=== PATIENT | female | born 1930 | race Asian ===

== ENCOUNTER 2018-10-09 20:26 | Inpatient (IN) | payer MEDICARE, OTHER ==
[~2018-10-09] VITALS: Ht 152.4 cm; Wt 61.2 kg
[2018-10-09] MEDS ORDERED: SINGULAIR4 M3 ORAL (20:32)
[2018-10-09] MEDS ORDERED: CELEBREX50 M1 ORAL (20:32)
[2018-10-09] MEDS ORDERED: CEPHALEXIN500 MG ORAL (20:32)
[2018-10-09] MEDS ORDERED: METOPROLOL TART25 MG ORAL (20:32)
[2018-10-09] MEDS ORDERED: CALCIUM500 M3 PO (20:32)
[2018-10-09] MEDS ORDERED: BENICAR20 MG ORAL (20:32)
[2018-10-09] MEDS ORDERED: Nitroglycerin 2% oint pkt TOPIC ONE (21:00)
[2018-10-09] MEDS ORDERED: Enoxaparin 60mg Inj SUBQ ONE (21:00)
[2018-10-09 21:05] VITALS: BP 119/63
[2018-10-09 21:13] LABS: EOSINOPHILS % (AUTO) 0.4 % (0.0-3.0); HEMATOCRIT 36.6 % (37.0-47.0); HEMOGLOBIN 12.4 G/DL (12.0-16.0); LYMPHOCYTES % (AUTO) 14.5 % (20.0-45.0); MEAN CORPUSCULAR VOLUME 94 FL (80-99); MONOCYTES % (AUTO) 6.8 % (1.0-10.0); NEUTROPHILS % (AUTO) 77.3 % (45.0-75.0); PLATELET COUNT 115 K/UL (150-450); RED BLOOD COUNT 3.91 M/UL (4.20-5.40); RED CELL DISTRIBUTION WIDTH 11.6 % (11.6-14.8); WHITE BLOOD COUNT 12.2 K/UL (4.8-10.8)
[2018-10-09 21:23] LABS: ANION GAP 7 mmol/L (5-15); BLOOD UREA NITROGEN 31 mg/dL (7-18); CALCIUM 9.4 MG/DL (8.5-10.1); CARBON DIOXIDE 25 MMOL/L (21-32); CHLORIDE 108 MMOL/L (98-107); CREATININE 1.2 MG/DL (0.55-1.30); POTASSIUM 4.3 MMOL/L (3.5-5.1); SODIUM 140 MMOL/L (136-145)
[2018-10-09 21:39] LABS: ALANINE AMINOTRANSFERASE 20 U/L (12-78); ALBUMIN/GLOBULIN RATIO 0.9 (1.0-2.7); ALKALINE PHOSPHATASE 64 U/L (46-116); ASPARTATE AMINO TRANSFERASE 28 U/L (15-37); BILIRUBIN,TOTAL 0.5 MG/DL (0.2-1.0); CREATINE KINASE 57 U/L (26-308)
[2018-10-09 23:00] VITALS: BP 116/71
--- NOTE | 2018-10-09 23:57 | Emergency Room Report ---
History of Present Illness General Chief Complaint: Chest Pain Source: Patient, Family Member, EMS Present Illness HPI Is an 88-year-old Romansh speaking female who has a history hypertension. She presents with chief complaint of chest pain. Onset was this afternoon around 4 PM. She was walking when she developed substernal chest pain. Her daughter said that her so much that she has to stop. She was diaphoretic. No radiation. Pain was 10 out of 10. She rest and got better but never went away. When she tried and bleeding again tonight it got worse and daughter called 911. EMS gave her nitroglycerin and aspirin. Her pain went down to 5 out of 10. It is even better now on arrival. She denies any fever or chills. Denies any shortness of breath. Exertion makes it worse. Rest made it better. Allergies: Coded Allergies: No Known Allergies (Unverified , 10/09/18) Patient History Past Medical History: see triage record, old chart reviewed, HTN Past Surgical History: none Pertinent Family History: none Social History: Denies: smoking Last Menstrual Period: NA Now: No Immunizations: other Reviewed Nursing Documentation: PMH: Agreed; PSxH: Agreed Nursing Documentation-PMH Hx Cardiac Problems: Yes Hx Hypertension: Yes Hx Cerebrovascular Accident: Yes - possible Review of Systems Eye: Denies: eye pain, blurred vision ENT: Denies: ear pain, nose congestion, throat swelling Respiratory: Denies: cough, shortness of breath Cardiovascular: Reports: chest pain; Denies: palpitations Gastrointestinal: Denies: abdominal pain, diarrhea, nausea, vomiting Musculoskeletal: Denies: back pain, joint pain Skin: Denies: rash Neurological: Denies: headache, numbness Endocrine: Denies: increased thirst, increased urine Hematologic/Lymphatic: Denies: easy bruising All Other Systems: negative except mentioned in HPI Physical Exam Vital Signs Date Time Temp Pulse Resp B/P (MAP) Pulse Ox O2 Delivery O2 Flow Rate FiO2 10/09/18 20:26 97.9 74 18 124/78 97 Room Air vitals normal Sp02 EP Interpretation: reviewed, normal General Appearance: well appearing, no apparent distress, alert Head: normocephalic, atraumatic Eyes: bilateral eye PERRL, bilateral eye EOMI ENT: hearing grossly normal, normal pharynx Neck: full range of motion, supple, no meningismus Respiratory: chest non-tender, lungs clear, normal breath sounds Cardiovascular #1: regular rate, rhythm, no murmur Gastrointestinal: normal bowel sounds, non tender, no mass, no organomegaly, no bruit, non-distended Musculoskeletal: back normal, gait/station normal, normal range of motion Psychiatric: mood/affect normal Skin: warm/dry Procedures Critical Care Time Critical Care Time Critical care is mandated in this patient who presented with NSTEMI. Patient require my urgent intervention to attenuate the risks of metabolic which may lead to cardiovascular collapse and . Critical care time is 35 minutes excluding any reportable procedure. Critical care time included evaluation, multiple reevaluation, looking at old charts, interpreting laboratory and diagnostic data, discussing case with patient and family and consultants, and charting. Medical Decision Making Diagnostic Impression: Primary Impression: NSTEMI, initial episode of care Additional Impression: Hyperglycemia ER Course Patient presents with chest pain consistent with a NSTEMI. She is pain-free here. No STEMI. Aspirin and nitroglycerin given by EMS. I gave her nitro paste and Lovenox here. I discussed the case with Dr. Browning who will admit. Lab Results Impression Labs with elevated troponin. EKG Diagnostic Results Rate: normal Rhythm: NSR ST Segments: other - Nonspecific ST change ASA given to the pt in ED: No - Given by EMS Rhythm Strip Diag. Results Rhythm Strip Time: 23:56 EP Interpretation: yes Rate: 77 Rhythm: NSR, no PVC's, no ectopy Chest X-Ray Diagnostic Results Chest X-Ray Diagnostic Results : Chest X-Ray Ordered: Yes # of Views/Limited/Complete: 1 View Indication: Chest Pain EP Interpretation: Yes Interpretation: no consolidation, no effusion, no pneumothorax, no acute cardiopulmonary disease Impression: No acute disease Electronically Signed by: Cordell Au MD Last Vital Signs Date Time Temp Pulse Resp B/P (MAP) Pulse Ox O2 Delivery O2 Flow Rate FiO2 10/09/18 21:11 119/63 10/09/18 21:05 98.0 75 21 95 Room Air Status: improved Disposition: ADMITTED INPATIENT Condition: Serious Referrals: NON PHYSICIAN (PCP) Cordell Au MD Oct 09, 2018 23:57
[2018-10-10] VITALS (7 sets, daily range): BP systolic 101–133; BP diastolic 58–75
[2018-10-10] MEDS ORDERED: celeBREX 200mg Cap **SURGERY PATIENTS ONLY ORAL SCH (09:00)
--- NOTE | 2018-10-10 09:11 | Diagnostic Imaging Report ---
Indication: Chest pain Technique: One view of the chest Comparison: none Findings: No acute infiltrates, effusions, or congestion. Tortuous calcified aorta. Upper limits normal heart size. Upper mediastinum unremarkable. The lungs and pleural spaces are clear. The lungs are hyperinflated. Impression: No acute process.
[2018-10-10] MEDS: Heparin 5000 units/ml inj SUBQ SCH ×2 (09:55→21:00)
[2018-10-10] MEDS: Cephalexin 250mg Cap ORAL SCH ×2 (09:57→21:35)
[2018-10-10] MEDS: Metoprolol 25mg tab ORAL SCH ×2 (09:58→21:00)
--- NOTE | 2018-10-10 16:30 | History and Physical Report ---
DATE OF ADMISSION: 10/09/2018 HISTORY OF PRESENT ILLNESS: This is an 88-year-old female, Yakut-only speaking, who has history of hypertension. She came to the hospital yesterday at about 4 p.m., she stated she had some chest pain. She was diaphoretic. Pain resolved and again recurred. She came to the hospital for subsequent evaluation and care. PAST MEDICAL HISTORY: Notable for hypertension only. HOME MEDICATIONS: Include Tums, Celebrex, metoprolol, and Singulair. ALLERGIES: None reported. PAST SURGICAL HISTORY: None reported. REVIEW OF SYSTEMS: The patient denies any headache, hematemesis, melena, or hematochezia. PHYSICAL EXAMINATION: GENERAL: Reveals an elderly female. HEENT: Unremarkable. LUNGS: Clear breath sounds. ABDOMEN: Soft. NEUROLOGIC: Nonfocal. LABORATORY DATA: Lab testing shows elevated troponin of 0.7 followed by 1.3. Hemoglobin of 12 and white count of 12,200. IMPRESSION: 1. [id number] elevation [place]. 2. Hypertension. 3. DISCUSSION: Admit to the hospital. We will consult Cardiology. The patient may benefit from cardiac cath. 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 Nii Browning M.D. DR: CAROLINE JOB#: [id number] CC:
[2018-10-10] MEDS: Montelukast 10mg tablet ORAL SCH (16:55)
[2018-10-10] MEDS: Tums 500mg ORAL SCH (21:35)
--- NOTE | 2018-10-10 22:51 | Consultation ---
History of Present Illness General Date patient seen: Oct 10, 2018 Time patient seen: 16:52 Chief Complaint: Chest Pain Present Illness HPI 88 year old female who presents with chest pain that improved with nitro, cardiology consulted for elevated troponin that is rising. SHe has a history of hypertension CXR unremarkable. Allergies: Coded Allergies: No Known Allergies (Unverified , 10/09/18) Medication History Scheduled Celecoxib (Celebrex), 50 MG ORAL TWICE A DAY, (Reported) Cephalexin* (Keflex*), 500 MG ORAL EVERY 12 HOURS, (Reported) Metoprolol Tartrate* (Metoprolol Tartrate*), 25 MG ORAL EVERY 12 HOURS, ( Reported) Montelukast Sodium (Singulair), 4 MG ORAL DAILY, (Reported) Olmesartan Medoxomil (Benicar), 20 MG ORAL DAILY, (Reported) Miscellaneous Medications Calcium Carbonate (Calcium), 500 MG PO, (Reported) Patient History Healthcare decision maker N/A Resuscitation status Full Code Advanced Directive on File No Review of Systems Constitutional: Reports: no symptoms Eye: Reports: no symptoms ENT: Reports: no symptoms Respiratory: Reports: no symptoms Cardiovascular: Reports: chest pain Gastrointestinal: Reports: no symptoms Genitourinary: Reports: no symptoms Musculoskeletal: Reports: no symptoms Skin: Reports: no symptoms Psychiatric: Reports: no symptoms Neurological: Reports: no symptoms Endocrine: Reports: no symptoms Hematologic/Lymphatic: Reports: no symptoms Physical Exam General Appearance: no apparent distress, alert Lines, tubes and drains: peripheral HEENT: normocephalic, atraumatic Neck: non-tender, normal alignment, supple Respiratory/Chest: chest wall non-tender, lungs clear Cardiovascular/Chest: normal peripheral pulses, normal rate, regular rhythm Abdomen: normal bowel sounds, non tender Extremities: normal range of motion, non-tender Skin Exam: normal pigmentation, warm/dry 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, no motor/sensory deficits Last 24 Hour Vital Signs Date Time Temp Pulse Resp B/P (MAP) Pulse Ox O2 Delivery O2 Flow Rate FiO2 10/10/18 21:00 65 119/75 10/10/18 20:00 98.0 65 18 119/75 (90) 94 10/10/18 20:00 63 10/10/18 20:00 Room Air 10/10/18 16:35 65 10/10/18 16:00 Room Air 10/10/18 16:00 97.8 64 20 120/60 (80) 94 10/10/18 12:00 97.8 61 22 120/68 (85) 98 10/10/18 12:00 60 10/10/18 12:00 Room Air 10/10/18 09:58 61 104/58 10/10/18 08:00 61 10/10/18 08:00 Room Air 10/10/18 08:00 97.7 83 23 104/58 (73) 91 10/10/18 04:00 Room Air 10/10/18 04:00 97.9 65 20 101/62 (75) 94 10/10/18 03:43 63 10/10/18 02:00 Room Air 10/10/18 02:00 97.5 65 20 133/75 (94) 94 10/10/18 01:00 97.9 62 15 108/70 95 Room Air 10/10/18 00:50 97.9 63 15 108/20 95 Room Air 10/09/18 23:00 97.9 66 18 116/71 94 Room Air Intake and Output 10/09/18 10/10/18 18:59 06:59 Intake Total 100 ml Balance 100 ml Intake Oral 100 ml # Voids 3 # Bowel Movements 1 Laboratory Tests Test 10/10/18 03:25 Troponin I 1.304 ng/mL (0.000-0.056) Height (Feet): 5 Weight (Pounds): 120 Medications Current Medications Medications (Trade) Dose Ordered Sig/Alex Route PRN Reason Start Time Stop Time Status Last Admin Dose Admin Acetaminophen (Tylenol) 650 mg Q4H PRN ORAL Mild Pain/Temp > 100.5 10/10/18 02:15 11/09/18 02:14 10/10/18 03:33 Calcium Carbonate (Tums) 500 mg BIOTEC ORAL 10/10/18 21:00 11/09/18 20:59 10/10/18 21:35 Cephalexin (Keflex) 250 mg Q12HR ORAL 10/10/18 09:00 10/17/18 08:59 10/10/18 21:35 Heparin Sodium (Porcine) (Heparin 5000 units/ml) 5,000 units EVERY 12 HOURS SUBQ 10/10/18 09:00 11/09/18 08:59 10/10/18 09:55 Meloxicam (Mobic) 7.5 mg DAILY ORAL 10/10/18 12:00 11/09/18 11:59 10/10/18 13:59 Metoprolol Tartrate (Lopressor) 25 mg Q12HR ORAL 10/10/18 09:00 11/09/18 08:59 10/10/18 09:58 Montelukast Sodium (Singulair) 10 mg QPM ORAL 10/10/18 16:30 11/09/18 16:29 10/10/18 16:55 Assessment/Plan Status: stable Assessment/Plan Assessment Chest pain NSTEMI Elevated troponin Hypertension Plan Aspirin Heparin gtt Nitor prn chest pain Statin Metoprolol Serial EKG/Troponi Recommend cardiac cath but patient would need to be transferred Should not do stress test in setting of elevated troponin Buddy Reyes MD Oct 10, 2018 22:51
[2018-10-11] VITALS: BP 127/74
[2018-10-11] MEDS ORDERED: Heparin 25,000u/D5W 500ml 500 ML IV SCH ×3 (00:30→17:15)
[2018-10-11 01:10] LABS: BASOPHILS % (AUTO) 0.5 % (0.0-2.0); HEMATOCRIT 37.8 % (37.0-47.0); HEMOGLOBIN 12.8 G/DL (12.0-16.0); LYMPHOCYTES % (AUTO) 16.2 % (20.0-45.0); MEAN CORPUSCULAR VOLUME 93 FL (80-99); MONOCYTES % (AUTO) 7.5 % (1.0-10.0); NEUTROPHILS % (AUTO) 74.9 % (45.0-75.0); PLATELET COUNT 120 K/UL (150-450); RED BLOOD COUNT 4.05 M/UL (4.20-5.40); RED CELL DISTRIBUTION WIDTH 12.1 % (11.6-14.8); WHITE BLOOD COUNT 10.3 K/UL (4.8-10.8)
[2018-10-11 04:00] VITALS: BP 144/86
[2018-10-11 08:00] VITALS: BP 118/71
[2018-10-11] MEDS ORDERED: Heparin 5000 units/ml inj IV SCH (08:30)
[2018-10-11] MEDS: Metoprolol 25mg tab ORAL SCH ×2 (08:42→20:46)
[2018-10-11] MEDS: Aspirin Baby 81mg ORAL SCH (08:42)
--- NOTE | 2018-10-11 09:45 | Pulmonology Progress Note ---
Assessment/Plan Assessment/Plan Chest pain NSTEMI Elevated troponin Hypertension Plan Aspirin Heparin gtt Nitrates prn chest pain Statin Metoprolol Serial EKG/Troponi Needs cardiac cath Subjective Interval Events: None new Constitutional: Reports: no symptoms HEENT: Repors: no symptoms Respiratory: Reports: no symptoms Cardiovascular: Reports: no symptoms Gastrointestinal/Abdominal: Reports: no symptoms Genitourinary: Reports: no symptoms Allergies: Coded Allergies: No Known Allergies (Unverified , 10/09/18) Objective Last 24 Hour Vital Signs Date Time Temp Pulse Resp B/P (MAP) Pulse Ox O2 Delivery O2 Flow Rate FiO2 10/11/18 08:42 85 118/71 10/11/18 08:00 71 10/11/18 08:00 Room Air 10/11/18 08:00 97.4 85 16 118/71 (87) 95 10/11/18 04:00 98.5 65 14 144/86 (105) 95 10/11/18 04:00 Room Air 10/11/18 04:00 57 10/11/18 00:00 Room Air 10/11/18 00:00 59 10/11/18 00:00 97.7 63 18 127/74 (91) 97 10/10/18 21:00 65 119/75 10/10/18 20:00 98.0 65 18 119/75 (90) 94 10/10/18 20:00 63 10/10/18 20:00 Room Air 10/10/18 16:35 65 10/10/18 16:00 Room Air 10/10/18 16:00 97.8 64 20 120/60 (80) 94 10/10/18 12:00 97.8 61 22 120/68 (85) 98 10/10/18 12:00 60 10/10/18 12:00 Room Air 10/10/18 09:58 61 104/58 Intake and Output 10/10/18 10/11/18 19:00 07:00 Intake Total 750 ml 400 ml Balance 750 ml 400 ml Intake Oral 750 ml 400 ml # Voids 2 4 General Appearance: no acute distress HEENT: normocephalic Respiratory/Chest: chest wall non-tender, lungs clear Cardiovascular: normal peripheral pulses, normal rate Abdomen: normal bowel sounds Laboratory Tests 10/11/18 00:50: White Blood Count 10.3, Red Blood Count 4.05L, Hemoglobin 12.8, Hematocrit 37.8 , Mean Corpuscular Volume 93, Mean Corpuscular Hemoglobin 31.7H, Mean Corpuscular Hemoglobin Concent 33.9, Red Cell Distribution Width 12.1, Platelet Count 120L, Mean Platelet Volume 6.6, Neutrophils (%) (Auto) 74.9, Lymphocytes ( %) (Auto) 16.2L, Monocytes (%) (Auto) 7.5, Eosinophils (%) (Auto) 1.0, Basophils (%) (Auto) 0.5, Activated Partial Thromboplast Time 28 10/11/18 07:30: Activated Partial Thromboplast Time 62H Current Medications Medications (Trade) Dose Ordered Sig/Alex Route PRN Reason Start Time Stop Time Status Last Admin Dose Admin Acetaminophen (Tylenol) 650 mg Q4H PRN ORAL Mild Pain/Temp > 100.5 10/10/18 02:15 11/09/18 02:14 10/10/18 03:33 Aspirin (ASA) 81 mg DAILY ORAL 10/11/18 09:00 11/10/18 08:59 10/11/18 08:42 Atorvastatin Calcium (Lipitor) 20 mg BEDTIME ORAL 10/11/18 21:00 11/10/18 20:59 Calcium Carbonate (Tums) 500 mg BIOTEC ORAL 10/10/18 21:00 11/09/18 20:59 10/10/18 21:35 Heparin Sodium/ Dextrose 500 ml @ 16.8 mls/hr ADJUST PER PROTOCOL IV 10/11/18 08:30 11/10/18 08:29 10/11/18 08:45 Meloxicam (Mobic) 7.5 mg DAILY ORAL 10/10/18 12:00 11/09/18 11:59 10/11/18 08:42 Metoprolol Tartrate (Lopressor) 25 mg Q12HR ORAL 10/10/18 09:00 11/09/18 08:59 10/11/18 08:42 Montelukast Sodium (Singulair) 10 mg QPM ORAL 10/10/18 16:30 11/09/18 16:29 10/10/18 16:55 Nii Browning MD Oct 11, 2018 09:45
--- NOTE | 2018-10-11 10:06 | Cardiology Progress Note ---
Assessment/Plan Status: stable Assessment/Plan Assessment/Plan Status: stable Assessment/Plan Assessment Chest pain NSTEMI Elevated troponin Hypertension Plan Aspirin Heparin gtt Nitor prn chest pain Statin Metoprolol Serial EKG/Troponin Initiated transfer to [facility] for cardiac cath: indication chest pain and elevated/rising troponin Subjective Cardiovascular: Reports: no symptoms Respiratory: Reports: no symptoms Gastrointestinal/Abdominal: Reports: no symptoms Genitourinary: Reports: no symptoms Subjective NO acute events, no chest pain currently, heparin running, vitals stable. Transfer to [facility] initiated. Objective Last 24 Hour Vital Signs Date Time Temp Pulse Resp B/P (MAP) Pulse Ox O2 Delivery O2 Flow Rate FiO2 10/11/18 08:42 85 118/71 10/11/18 08:00 71 10/11/18 08:00 Room Air 10/11/18 08:00 97.4 85 16 118/71 (87) 95 10/11/18 04:00 98.5 65 14 144/86 (105) 95 10/11/18 04:00 Room Air 10/11/18 04:00 57 10/11/18 00:00 Room Air 10/11/18 00:00 59 10/11/18 00:00 97.7 63 18 127/74 (91) 97 10/10/18 21:00 65 119/75 10/10/18 20:00 98.0 65 18 119/75 (90) 94 10/10/18 20:00 63 10/10/18 20:00 Room Air 10/10/18 16:35 65 10/10/18 16:00 Room Air 10/10/18 16:00 97.8 64 20 120/60 (80) 94 10/10/18 12:00 97.8 61 22 120/68 (85) 98 10/10/18 12:00 60 10/10/18 12:00 Room Air General Appearance: no apparent distress, alert EENT: PERRL/EOMI, normal ENT inspection, TMs normal, pharynx normal Neck: non-tender, normal alignment, supple, normal inspection, no JVD Rhythm: NSR Cardiovascular: normal peripheral pulses, normal rate, regular rhythm Respiratory/Chest: chest wall non-tender, lungs clear, normal breath sounds, no respiratory distress, no accessory muscle use Abdomen: normal bowel sounds, non tender, soft, no organomegaly, no mass Extremities: normal range of motion, non-tender, normal inspection, no calf tenderness, no swelling 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, no motor/sensory deficits, alert, oriented x 3, responsive Intake and Output 10/10/18 10/11/18 19:00 07:00 Intake Total 750 ml 400 ml Balance 750 ml 400 ml Intake Oral 750 ml 400 ml # Voids 2 4 Laboratory Tests Test 10/11/18 00:50 10/11/18 07:30 White Blood Count 10.3 K/UL (4.8-10.8) Red Blood Count 4.05 M/UL (4.20-5.40) L Hemoglobin 12.8 G/DL (12.0-16.0) Hematocrit 37.8 % (37.0-47.0) Mean Corpuscular Volume 93 FL (80-99) Mean Corpuscular Hemoglobin 31.7 PG (27.0-31.0) H Mean Corpuscular Hemoglobin Concent 33.9 G/DL (32.0-36.0) Red Cell Distribution Width 12.1 % (11.6-14.8) Platelet Count 120 K/UL (150-450) L Mean Platelet Volume 6.6 FL (6.5-10.1) Neutrophils (%) (Auto) 74.9 % (45.0-75.0) Lymphocytes (%) (Auto) 16.2 % (20.0-45.0) L Monocytes (%) (Auto) 7.5 % (1.0-10.0) Eosinophils (%) (Auto) 1.0 % (0.0-3.0) Basophils (%) (Auto) 0.5 % (0.0-2.0) Activated Partial Thromboplast Time 28 SEC (23-33) 62 SEC (23-33) H Buddy Reyes MD Oct 11, 2018 10:06
[2018-10-11 12:00] VITALS: BP 131/76
[2018-10-11 16:00] VITALS: BP 148/100
[2018-10-11] MEDS: Montelukast 10mg tablet ORAL SCH (16:17)
--- NOTE | 2018-10-11 17:14 | Cardiology Report ---
APPROVED REPORT EXAM: Two-dimensional and M-mode echocardiogram with Doppler and color Doppler. INDICATION Left ventricular function M-Mode DIMENSIONS IVSd1.3 (0.7-1.1cm)Left Atrium (MM)3.3 (1.6-4.0cm) LVDd2.8 (3.5-5.6cm)Aortic Root3.0 (2.0-3.7cm) PWd1.1 (0.7-1.1cm)Aortic Cusp Exc.1.4 (1.5-2.0cm) LVDs2.1 (2.5-4.0cm) PWs1.2 cm Normal left ventricular chamber size, systolic function and wall motion. Left ventricular ejection fraction estimated to be 65-70 %. Mild left ventricular hypertrophy by 2D No evidence of pericardial effusion. Left atrial size is within normal limits. Mild right atrial enlargement. Mild right ventricular enlargement. Focal aortic valve sclerosis with adequate cusp excursion. Thickened mitral valve leaflets with normal excursion. Mitral annulus and aortic root calcification. Pulmonic valve not well visualized. Normal tricuspid valve structure. IVC measured at 1.7 cm with slight physiologic collapse. A color flow and spectral Doppler study was performed and revealed: No aortic regurgitation. Trace mitral regurgitation. Mitral diastolic velocities suggest reduced left ventricular relaxation c/w mild LV diastolic dysfunction (Grade I). Moderate tricuspid regurgitation. Tricuspid systolic velocities suggests peak right ventricular systolic pressure of 75 mmHg, consistent with severe pulmonary hypertension. Pulmonic regurgitation present.
--- NOTE | 2018-10-11 18:41 | Cardiology Report ---
APPROVED REPORT EKG Measurement Heart [id number] Normal sinus rhythm T wave abnormality, consider anterior ischemia Abnormal ECG
[2018-10-11 20:06] VITALS: BP 124/86
[2018-10-11] MEDS: Tums 500mg ORAL SCH (20:46)
[2018-10-11] MEDS: Atorvastatin 20mg tab ORAL SCH (20:46)
[2018-10-12] VITALS: BP 149/93
[2018-10-12] MEDS ORDERED: Heparin 25,000u/D5W 500ml 500 ML IV SCH ×2 (00:15→08:00)
[2018-10-12 04:00] VITALS: BP 150/89
[2018-10-12 08:00] VITALS: BP 121/70
[2018-10-12] MEDS ORDERED: Heparin 5000 units/ml inj IV SCH (08:00)
--- NOTE | 2018-10-12 08:35 | Cardiology Progress Note ---
Assessment/Plan Status: stable Assessment/Plan Assessment/Plan Status: stable Assessment/Plan Assessment Chest pain NSTEMI Elevated troponin Hypertension Plan Aspirin Heparin gtt Nitor prn chest pain Statin Metoprolol Serial EKG/Troponin Initiated transfer to [facility] for cardiac cath: indication chest pain and elevated/rising troponin Subjective Cardiovascular: Reports: no symptoms Respiratory: Reports: no symptoms Gastrointestinal/Abdominal: Reports: no symptoms Genitourinary: Reports: no symptoms Subjective NO acute events, no chest pain currently, heparin running, vitals stable. Transfer to [facility] initiated, awaiting bed assignment. Objective Last 24 Hour Vital Signs Date Time Temp Pulse Resp B/P (MAP) Pulse Ox O2 Delivery O2 Flow Rate FiO2 10/12/18 04:00 Room Air 10/12/18 04:00 97.7 55 20 150/89 (109) 95 10/12/18 04:00 60 10/12/18 00:00 97.8 55 20 149/93 (111) 96 10/12/18 00:00 Room Air 10/12/18 00:00 53 10/11/18 20:46 73 124/86 10/11/18 20:06 96.8 73 20 124/86 (99) 95 10/11/18 20:00 Room Air 10/11/18 20:00 71 10/11/18 16:00 97.0 67 20 148/100 (116) 95 10/11/18 16:00 Room Air 10/11/18 16:00 69 10/11/18 12:00 97.2 68 20 131/76 (94) 94 10/11/18 12:00 Room Air 10/11/18 12:00 58 10/11/18 08:42 85 118/71 General Appearance: no apparent distress, alert EENT: PERRL/EOMI, normal ENT inspection Neck: non-tender, normal alignment, supple, normal inspection, no JVD Rhythm: NSR Cardiovascular: normal peripheral pulses, normal rate, regular rhythm Respiratory/Chest: chest wall non-tender, lungs clear, normal breath sounds Abdomen: normal bowel sounds, non tender Extremities: normal range of motion, non-tender 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
[2018-10-12] MEDS: Aspirin Baby 81mg ORAL SCH (09:06)
[2018-10-12] MEDS: Metoprolol 25mg tab ORAL SCH ×2 (09:07→21:12)
--- NOTE | 2018-10-12 09:52 | Pulmonology Progress Note ---
Assessment/Plan Assessment/Plan Chest pain NSTEMI Elevated troponin Hypertension Plan Aspirin Heparin gtt Nitrates prn chest pain Statin Metoprolol Serial EKG/Troponi Needs cardiac cath Await transfer to cath facility Subjective Interval Events: Seen by cardiology; denies CP Constitutional: Reports: no symptoms HEENT: Repors: no symptoms Respiratory: Reports: no symptoms Cardiovascular: Reports: no symptoms Gastrointestinal/Abdominal: Reports: no symptoms Allergies: Coded Allergies: No Known Allergies (Unverified , 10/09/18) Objective Last 24 Hour Vital Signs Date Time Temp Pulse Resp B/P (MAP) Pulse Ox O2 Delivery O2 Flow Rate FiO2 10/12/18 09:07 65 121/70 10/12/18 04:00 Room Air 10/12/18 04:00 97.7 55 20 150/89 (109) 95 10/12/18 04:00 60 10/12/18 00:00 97.8 55 20 149/93 (111) 96 10/12/18 00:00 Room Air 10/12/18 00:00 53 10/11/18 20:46 73 124/86 10/11/18 20:06 96.8 73 20 124/86 (99) 95 10/11/18 20:00 Room Air 10/11/18 20:00 71 10/11/18 16:00 97.0 67 20 148/100 (116) 95 10/11/18 16:00 Room Air 10/11/18 16:00 69 10/11/18 12:00 97.2 68 20 131/76 (94) 94 10/11/18 12:00 Room Air 10/11/18 12:00 58 Intake and Output 10/11/18 10/12/18 19:00 07:00 Intake Total 479.6 ml 303.776 ml Balance 479.6 ml 303.776 ml Intake Oral 350 ml 200 ml IV Total 129.6 ml 103.776 ml # Voids 5 4 # Bowel Movements 1 General Appearance: no acute distress HEENT: normocephalic Respiratory/Chest: chest wall non-tender, lungs clear Cardiovascular: normal peripheral pulses, normal rate Abdomen: normal bowel sounds Laboratory Tests 10/11/18 15:00: Activated Partial Thromboplast Time > 150*H 10/11/18 22:20: Activated Partial Thromboplast Time > 150*H 10/12/18 06:14: Activated Partial Thromboplast Time 52H, Troponin I 0.262H Current Medications Medications (Trade) Dose Ordered Sig/Alex Route PRN Reason Start Time Stop Time Status Last Admin Dose Admin Acetaminophen (Tylenol) 650 mg Q4H PRN ORAL Mild Pain/Temp > 100.5 10/10/18 02:15 11/09/18 02:14 10/10/18 03:33 Aspirin (ASA) 81 mg DAILY ORAL 10/11/18 09:00 11/10/18 08:59 10/12/18 09:06 Atorvastatin Calcium (Lipitor) 20 mg BEDTIME ORAL 10/11/18 21:00 11/10/18 20:59 10/11/18 20:46 Calcium Carbonate (Tums) 500 mg BIOTEC ORAL 10/10/18 21:00 11/09/18 20:59 10/11/18 20:46 Heparin Sodium/ Dextrose 500 ml @ 9.725 mls/ hr ADJUST PER PROTOCOL IV 10/12/18 08:00 11/11/18 07:59 10/12/18 09:03 Meloxicam (Mobic) 7.5 mg DAILY ORAL 10/10/18 12:00 11/09/18 11:59 10/12/18 09:06 Metoprolol Tartrate (Lopressor) 25 mg Q12HR ORAL 10/10/18 09:00 11/09/18 08:59 10/12/18 09:07 Montelukast Sodium (Singulair) 10 mg QPM ORAL 10/10/18 16:30 11/09/18 16:29 10/11/18 16:17 Nii Browning MD Oct 12, 2018 09:52
[2018-10-12 12:00] VITALS: BP 153/90
[2018-10-12 16:20] VITALS: BP 132/78
[2018-10-12] MEDS: Montelukast 10mg tablet ORAL SCH (16:40)
[2018-10-12 20:00] VITALS: BP 110/65
[2018-10-12] MEDS: Atorvastatin 20mg tab ORAL SCH (21:12)
[2018-10-12] MEDS: Tums 500mg ORAL SCH (21:12)
[2018-10-13] VITALS: BP 111/81
[2018-10-13 04:00] VITALS: BP 152/83
[2018-10-13] MEDS ORDERED: Heparin 5000 units/ml inj IV ONE (05:00)
[2018-10-13] MEDS: Heparin 25,000u/D5W 500ml 500 ML IV SCH ×2 (05:19→12:24)
[2018-10-13 08:00] VITALS: BP 150/80
--- NOTE | 2018-10-13 08:11 | Pulmonology Progress Note ---
Assessment/Plan Assessment/Plan Chest pain NSTEMI Elevated troponin Hypertension Plan Aspirin Heparin gtt Nitrates prn chest pain Statin Metoprolol Serial EKG/Troponi Needs cardiac cath Await transfer to cath facility Subjective Interval Events: No new complaints; pain free Constitutional: Reports: no symptoms HEENT: Repors: no symptoms Respiratory: Reports: no symptoms Cardiovascular: Reports: no symptoms Gastrointestinal/Abdominal: Reports: no symptoms Genitourinary: Reports: no symptoms Neurologic: Reports: no symptoms Allergies: Coded Allergies: No Known Allergies (Unverified , 10/09/18) Objective Last 24 Hour Vital Signs Date Time Temp Pulse Resp B/P (MAP) Pulse Ox O2 Delivery O2 Flow Rate FiO2 10/13/18 04:00 97.4 55 18 152/83 (106) 95 10/13/18 03:41 48 10/13/18 00:00 97.8 77 18 111/81 (91) 95 10/12/18 23:38 48 10/12/18 21:12 62 110/65 10/12/18 20:00 97.4 62 18 110/65 (80) 95 10/12/18 19:32 70 10/12/18 16:20 97.5 62 18 132/78 (96) 95 10/12/18 16:00 Room Air 10/12/18 15:30 63 10/12/18 12:00 57 10/12/18 12:00 Room Air 10/12/18 12:00 97.5 60 18 153/90 (111) 96 10/12/18 09:07 65 121/70 Intake and Output 10/12/18 10/13/18 18:59 06:59 Intake Total 344.821 ml 97.250 ml Balance 344.821 ml 97.250 ml Intake Oral 250 ml IV Total 94.821 ml 97.250 ml # Voids 3 General Appearance: no acute distress HEENT: normocephalic Respiratory/Chest: chest wall non-tender, lungs clear Cardiovascular: normal peripheral pulses, normal rate Abdomen: normal bowel sounds, soft, non tender Extremities: no cyanosis Laboratory Tests 10/12/18 15:05: Activated Partial Thromboplast Time 80H 10/13/18 04:15: Activated Partial Thromboplast Time 53H Current Medications Medications (Trade) Dose Ordered Sig/Alex Route PRN Reason Start Time Stop Time Status Last Admin Dose Admin Acetaminophen (Tylenol) 650 mg Q4H PRN ORAL Mild Pain/Temp > 100.5 10/10/18 02:15 11/09/18 02:14 10/10/18 03:33 Aspirin (ASA) 81 mg DAILY ORAL 10/11/18 09:00 11/10/18 08:59 10/12/18 09:06 Atorvastatin Calcium (Lipitor) 20 mg BEDTIME ORAL 10/11/18 21:00 11/10/18 20:59 10/12/18 21:12 Calcium Carbonate (Tums) 500 mg BIOTEC ORAL 10/10/18 21:00 11/09/18 20:59 10/12/18 21:12 Heparin Sodium/ Dextrose 500 ml @ 12.247 mls/ hr ADJUST PER PROTOCOL IV 10/13/18 05:00 11/11/18 07:59 10/13/18 05:19 Meloxicam (Mobic) 7.5 mg DAILY ORAL 10/10/18 12:00 11/09/18 11:59 10/12/18 09:06 Metoprolol Tartrate (Lopressor) 25 mg Q12HR ORAL 10/10/18 09:00 11/09/18 08:59 10/12/18 21:12 Montelukast Sodium (Singulair) 10 mg QPM ORAL 10/10/18 16:30 11/09/18 16:29 10/12/18 16:40 Nii Browning MD Oct 13, 2018 08:11
[2018-10-13] MEDS: Aspirin Baby 81mg ORAL SCH (08:36)
[2018-10-13] MEDS: Metoprolol 25mg tab ORAL SCH (08:37)
[2018-10-13] MEDS ORDERED: Lexiscan 0.4mg/5ml syringe IV PRN (09:30)
--- NOTE | 2018-10-13 09:31 | Cardiology Progress Note ---
Assessment/Plan Status: stable Assessment/Plan Assessment/Plan Status: stable Assessment/Plan Assessment Chest pain NSTEMI Elevated troponin Hypertension Plan Aspirin Heparin gtt Nitor prn chest pain Statin Metoprolol Serial EKG/Troponin Stress test ordered given no CP and fallen troponin - if negative can d/c home and cancel transfer Subjective Cardiovascular: Reports: no symptoms Respiratory: Reports: no symptoms Gastrointestinal/Abdominal: Reports: no symptoms Genitourinary: Reports: no symptoms Subjective NO acute events, no chest pain currently, heparin running, vitals stable. Stress test ordered given no CP and troponin has significantly come down Objective Last 24 Hour Vital Signs Date Time Temp Pulse Resp B/P (MAP) Pulse Ox O2 Delivery O2 Flow Rate FiO2 10/13/18 09:00 Room Air 10/13/18 08:37 63 150/80 10/13/18 08:00 97.3 55 18 150/80 (103) 98 10/13/18 04:00 97.4 55 18 152/83 (106) 95 10/13/18 03:41 48 10/13/18 00:00 97.8 77 18 111/81 (91) 95 10/12/18 23:38 48 10/12/18 21:12 62 110/65 10/12/18 20:00 97.4 62 18 110/65 (80) 95 10/12/18 19:32 70 10/12/18 16:20 97.5 62 18 132/78 (96) 95 10/12/18 16:00 Room Air 10/12/18 15:30 63 10/12/18 12:00 57 10/12/18 12:00 Room Air 10/12/18 12:00 97.5 60 18 153/90 (111) 96 General Appearance: no apparent distress, alert EENT: PERRL/EOMI, normal ENT inspection Neck: non-tender, normal alignment, supple Rhythm: NSR Cardiovascular: normal peripheral pulses, normal rate, regular rhythm Respiratory/Chest: chest wall non-tender, lungs clear, normal breath sounds Abdomen: normal bowel sounds, non tender Extremities: normal range of motion, non-tender Neurologic: weed thinner II-XII grossly normal, no motor/sensory deficits Intake and Output 10/12/18 10/13/18 19:00 07:00 Intake Total 364.271 ml 77.800 ml Balance 364.271 ml 77.800 ml Intake Oral 250 ml IV Total 114.271 ml 77.800 ml # Voids 3 Laboratory Tests Test 10/12/18 15:05 10/13/18 04:15 Activated Partial Thromboplast Time 80 SEC (23-33) H 53 SEC (23-33) H Buddy Reyes MD Oct 13, 2018 09:31
[2018-10-13 12:00] VITALS: BP 110/66
[2018-10-13 16:00] VITALS: BP 133/69
[2018-10-13] MEDS: Montelukast 10mg tablet ORAL SCH (16:31)
[2018-10-13 19:55] VITALS: BP 185/95
--- NOTE | 2018-10-15 13:22 | Discharge Summary ---
Discharge Summary Discharge Summary _ DATE OF ADMISSION: 10/09/2018 DATE OF DISCHARGE: 2018 DISCHARGED BY: Dr. Browning REASON FOR ADMISSION: 88 years old female with past medical history of hypertension, presented to the hospital with complaint of chest pain. Patient was diaphoretic. Pain resolved at home and returned again. Patient subsequently presented to emergency department for further evaluation and management. Upon evaluation vital signs were stable. Laboratory workup revealed mild leukocytosis WBC 12.2, stable hemoglobin hematocrit. Troponin int elevated- 0.706. EKG revealed sinus rhythm with nonspecific ST changes. No acute ischemic changes. Pro BNP 364. BUN 31 creatinine 1.2. Glucose 236. Albumin 3.0 Chest x-ray revealed no acute cardiopulmonary pathology. Patient was admitted for NSTEMI for further management. CONSULTANTS: pot builder dr. Reyes HOSPITAL COURSE: Patient admitted to monitored floor. Antiplatelet therapy with Aspirin was initiated . Patient started on anticoagulation with heparin drip. Net Software Architect closely followed. c Nitroglycerin was on board as needed for chest pain. Patient started on beta-hermes and statin. Patient was followed-up with serial EKG and troponin. Echocardiogram revealed preserved ejection fraction 55-70% with mild left ventricular hypertrophy. No evidence of wall motion abnormality. No evidence of pericardial effusion. Right ventricular systolic pressure of 75 consistent with severe pulmonary hypertension. Patient was placed on waiting list for transfer to higher level of care for cardiac catheterization . No stress test was recommended in setting of elevated troponin. Troponin was initially trended up to 1.304, and then started to trend down ; last troponin prior to discharge - 0.141. Blood pressure was managed with beta-hermes and hydralazine on as needed basis. Pain management was addressed , and pain was controlled. Supportive care provided. Bed was secured at [facility] . Patient was stable for transfer via [facility] ambulance for cardiac catheterization. FINAL DIAGNOSES: Non-STEMI Chest pain , secondary to non-STEMI Elevated troponin Hypertension Severe pulmonary hypertension DISCHARGE MEDICATIONS: List of medication was sent with patient. DISCHARGE INSTRUCTIONS: Patient was transferred to [facility] for cardiac catheterization. Follow-up with medical doctor at the facility. I have been assigned to dictate discharge summary for this account. I was not involved in the patient's management. Maria Victoria Sue NP Oct 15, 2018 13:22
== END 2018-10-13 20:06 | disposition short-term general hospital (02) | DRG 282 ==
LOC: EDBD 20:26 → EMR 20:51 → EDBEDREQ 22:15 → 2W 23:12 → EDBEDREQ 10-10 00:22 → 2E 10-12 16:00
DX: I21.4 Non-ST elevation (NSTEMI) myocardial infarction (principal); I10 Essential (primary) hypertension; I27.20 Pulmonary hypertension, unspecified
CPT/HCPCS: 36415; 71045; 80053; 82550; 82553; 83880; 84484; 85025; 85730; 93005; 93306; 96372; 99291

== ENCOUNTER 2019-05-14 14:13 | Inpatient (IN) | payer MEDICARE, OTHER ==
[~2019-05-14] VITALS: Ht 152.4 cm; Wt 58.1 kg
[~2019-05-14 14:13] MED LIST: BENICAR20 MG ORAL; CALCIUM500 M3 PO; CELEBREX50 M1 ORAL; CEPHALEXIN500 MG ORAL; METOPROLOL TART25 MG ORAL; SINGULAIR4 M3 ORAL
--- NOTE | 2019-05-14 14:13 | NUR ---
ED Nurse Note: Pt brought in by EMS from [facility] due to SOB and was desating to 74% in room air and non rebreather applied by EMS. No hx of asthma or COPD. Also c/o chronic low back pain and has hx of back surgery. AAO x4, and follows commands with SOB at rest. Lungs are clear. Pt now sats 95-100% in room air.
[2019-05-14 14:18] VITALS: BP 133/56
[2019-05-14] MEDS ORDERED: lovaza PO (14:19)
[2019-05-14] MEDS ORDERED: LIPITOR10 MG ORAL (14:19)
[2019-05-14] MEDS ORDERED: BENICAR20 MG ORAL (14:19)
--- NOTE | 2019-05-14 14:24 | Emergency Room Report ---
History of Present Illness General Chief Complaint: Dyspnea/Respdistress Source: Patient, Medical Record Present Illness HPI 88-year-old female history of back surgery presents with acute shortness of breath prior to arrival patient had tachypnea, unknown aggravating relieving factors, episode lasted 30 minutes, patient desatted to 76 per EMS without nonrebreather, patient has no smoking history she denied any chest pain no abdominal pain no nausea vomiting, patient states shortness of breath has resolved, severity was severe. Allergies: Coded Allergies: No Known Allergies (Unverified , 10/09/18) Patient History Past Medical History: see triage record Last Menstrual Period: na Reviewed Nursing Documentation: PMH: Agreed; PSxH: Agreed Nursing Documentation-PMH Past Medical History: No History, Except For Hx Cardiac Problems: Yes - high cholesterol Hx Hypertension: Yes Hx Gastrointestinal Problems: Yes - gastritis Hx Cerebrovascular Accident: Yes Review of Systems All Other Systems: negative except mentioned in HPI Physical Exam Vital Signs Date Time Temp Pulse Resp B/P (MAP) Pulse Ox O2 Delivery O2 Flow Rate FiO2 05/14/19 14:08 99.3 68 22 142/82 (102) 100 Non-Rebreather Sp02 EP Interpretation: reviewed, abnormal - reduced General Appearance: well appearing, no apparent distress, alert Head: normocephalic, atraumatic Eyes: bilateral eye PERRL, bilateral eye EOMI ENT: uvula midline, moist mucus membranes Neck: supple, thyroid normal, supple/symm/no masses Respiratory: lungs clear, no respiratory distress, no retraction, no accessory muscle use Cardiovascular #1: normal peripheral pulses, regular rate, rhythm, no edema, no gallop, no murmur Gastrointestinal: non tender, soft, no guarding, no rebound Musculoskeletal: normal inspection Neurologic: alert, oriented x3 Psychiatric: mood/affect normal Skin: no rash, warm/dry Procedures Critical Care Time Critical Care Time Given the critical condition in which the patient arrived, the patient was immediately assessed by myself and the nurse, and cardiac monitoring initiated due to the potential for rapid decompensation of the patient's clinical condition. During the course of the patient's stay, I spent a considerable amount of time at the bedside performing serial re-evaluations of the patient's hemodynamic and clinical status because of the recognized potential threat to life or limb in this condition. I then had a chance to review not only all of the available current laboratory and radiographic studies obtained today, but I also reviewed old records available to me at the time. Additionally, any ancillary information available including software project manager records were reviewed. Sequential vital signs were obtained. Critical Care time of 36 minutes was performed exclusive of billable procedures. Medical Decision Making Diagnostic Impression: Primary Impression: Dyspnea Qualified Codes: R06.03 - Acute respiratory distress Additional Impressions: Respiratory distress Hypoxia ER Course 88-year-old female presented with acute respiratory distress, requiring nonrebreather Patient initially started desatting into the 70s once a nonrebreather was taken off Patient emergently taken to the monitor, on the differential includes ACS pulmonary embolism pneumonia, COPD however patient never has smoked Patient given nasal cannula, fluid bolus, breathing treatments Reevaluation patient started improving however requiring supplemental nasal cannula CT PE negative will admit patient to stepdown for observation given her desaturation events Patient admitted to Dr. Camargo's groups 5:32pm Laboratory Tests Test 05/14/19 14:45 05/14/19 15:45 White Blood Count 7.5 K/UL (4.8-10.8) Red Blood Count 4.04 M/UL (4.20-5.40) L Hemoglobin 12.7 G/DL (12.0-16.0) Hematocrit 38.2 % (37.0-47.0) Mean Corpuscular Volume 95 FL (80-99) Mean Corpuscular Hemoglobin 31.5 PG (27.0-31.0) H Mean Corpuscular Hemoglobin Concent 33.3 G/DL (32.0-36.0) Red Cell Distribution Width 11.8 % (11.6-14.8) Platelet Count 171 K/UL (150-450) Mean Platelet Volume 7.2 FL (6.5-10.1) Neutrophils (%) (Auto) % (45.0-75.0) Lymphocytes (%) (Auto) % (20.0-45.0) Monocytes (%) (Auto) % (1.0-10.0) Eosinophils (%) (Auto) % (0.0-3.0) Basophils (%) (Auto) % (0.0-2.0) Neutrophils % (Manual) Pending Lymphocytes % (Manual) Pending Platelet Estimate Pending Platelet Morphology Pending Prothrombin Time 10.1 SEC (9.30-11.50) Prothrombin Time INR 0.9 (0.9-1.1) PTT 25 SEC (23-33) Sodium Level 143 MMOL/L (136-145) Potassium Level 4.4 MMOL/L (3.5-5.1) Chloride Level 108 MMOL/L (98-107) H Carbon Dioxide Level 20 MMOL/L (21-32) L Anion Gap 15 mmol/L (5-15) Blood Urea Nitrogen 30 mg/dL (7-18) H Creatinine 1.3 MG/DL (0.55-1.30) Estimate Glomerular Filtration Rate mL/min (>60) Glucose Level 151 MG/DL (74-106) H Lactic Acid Level 2.00 mmol/L (0.4-2.0) Calcium Level 9.2 MG/DL (8.5-10.1) Phosphorus Level 3.8 MG/DL (2.5-4.9) Magnesium Level 1.7 MG/DL (1.8-2.4) L Total Bilirubin 0.9 MG/DL (0.2-1.0) Aspartate Amino Transferase (AST) 36 U/L (15-37) Alanine Aminotransferase (ALT) 19 U/L (12-78) Alkaline Phosphatase 99 U/L (46-116) Total Creatine Kinase 39 U/L (26-308) Creatine Kinase MB < 0.5 NG/ML (0.0-3.6) Creatine Kinase MB Relative Index 1.2 Troponin I 0.007 ng/mL (0.000-0.056) Pro-B-Type Natriuretic Peptide 404 pg/mL (0-125) H Total Protein 7.4 G/DL (6.4-8.2) Albumin 3.4 G/DL (3.4-5.0) Globulin 4.0 g/dL Albumin/Globulin Ratio 0.9 (1.0-2.7) L Lipase 108 U/L (73-393) Urine Color Pale yellow Urine Appearance Clear Urine pH 6 (4.5-8.0) Urine Specific Hooper 1.010 (1.005-1.035) Urine Protein Negative (NEGATIVE) Urine Glucose (UA) Negative (NEGATIVE) Urine Ketones Negative (NEGATIVE) Urine Blood 1+ (NEGATIVE) H Urine Nitrite Negative (NEGATIVE) Urine Bilirubin Negative (NEGATIVE) Urine Urobilinogen Normal MG/DL (0.0-1.0) Urine Leukocyte Esterase Negative (NEGATIVE) Urine RBC 2-4 /HPF (0 - 2) H Urine WBC 0-2 /HPF (0 - 2) Urine Squamous Epithelial Cells Occasional /LPF Urine Bacteria Few /HPF (NONE) EKG Diagnostic Results EKG Time: 14:34 EP Interpretation: NSR, rate 63, QTc 395, no acute ST elevations, normal axis Rate: normal Rhythm: NSR ST Segments: other - Depression V5 V6 Rhythm Strip Diag. Results Rhythm Strip Time: 14:45 EP Interpretation: yes Rate: 63 Rhythm: NSR, no PVC's, no ectopy Chest X-Ray Diagnostic Results Chest X-Ray Diagnostic Results : Chest X-Ray Ordered: Yes # of Views/Limited/Complete: 1 View EP Interpretation: Yes Interpretation: no consolidation, no effusion, no pneumothorax, no acute cardiopulmonary disease Impression: No acute disease Electronically Signed by: Mani Carey MD CT/MRI/US Diagnostic Results CT/MRI/US Diagnostic Results : Impression Preliminary Findings Only See Final Report For Complete Findings CTA CHEST With Contrast: No central pulmonary embolus. Plaque and ulceration in the aortic arch. Cardiomegaly. Mild patchy atelectasis. No consolidation Old rib fractures. Radiologist: Sydni Riggins M.D. Study ready at 16:39 and initial results transmitted at 16:46 Last Vital Signs Date Time Temp Pulse Resp B/P (MAP) Pulse Ox O2 Delivery O2 Flow Rate FiO2 05/14/19 14:08 99.3 68 22 142/82 (102) 100 Non-Rebreather Disposition: ADMITTED INPATIENT Condition: Stable Mani Carey MD May 14, 2019 14:24
[2019-05-14] MEDS ORDERED: Isovue-370 150ml vial INJ PRN (14:45)
[2019-05-14 15:21] LABS: HEMATOCRIT 38.2 % (37.0-47.0); HEMOGLOBIN 12.7 G/DL (12.0-16.0); MEAN CORPUSCULAR VOLUME 95 FL (80-99); PLATELET COUNT 171 K/UL (150-450); RED BLOOD COUNT 4.04 M/UL (4.20-5.40); RED CELL DISTRIBUTION WIDTH 11.8 % (11.6-14.8); WHITE BLOOD COUNT 7.5 K/UL (4.8-10.8)
[2019-05-14 15:24] LABS: INR 0.9 (0.9-1.1)
[2019-05-14 15:35] LABS: ANION GAP 15 mmol/L (5-15); BLOOD UREA NITROGEN 30 mg/dL (7-18); CALCIUM 9.2 MG/DL (8.5-10.1); CARBON DIOXIDE 20 MMOL/L (21-32); CHLORIDE 108 MMOL/L (98-107); CREATININE 1.3 MG/DL (0.55-1.30); POTASSIUM 4.4 MMOL/L (3.5-5.1); SODIUM 143 MMOL/L (136-145)
[2019-05-14 16:00] VITALS: BP 128/70
[2019-05-14] MEDS ORDERED: Albuterol ud Inhalation HHN ONE (16:00)
[2019-05-14] MEDS ORDERED: Ipratropium 0.02% Inh Soln 2.5ml UD HHN ONE (16:00)
--- NOTE | 2019-05-14 16:00 | NUR ---
ED Nurse Note: No respiratory distress noted. Sats 96-100% in room air. Will continue to assess.
[2019-05-14 16:04] LABS: ALANINE AMINOTRANSFERASE 19 U/L (12-78); ALBUMIN 3.4 G/DL (3.4-5.0); ALBUMIN/GLOBULIN RATIO 0.9 (1.0-2.7); ALKALINE PHOSPHATASE 99 U/L (46-116); ASPARTATE AMINO TRANSFERASE 36 U/L (15-37); BILIRUBIN,TOTAL 0.9 MG/DL (0.2-1.0); CKMB < 0.5 NG/ML (0.0-3.6); CREATINE KINASE 39 U/L (26-308); PHOSPHORUS 3.8 MG/DL (2.5-4.9)
[2019-05-14 16:18] LABS: APPEARANCE,URINE CLEAR; BILIRUBIN, URINE NEGATIVE (NEGATIVE); COLOR,URINE PALE YELLOW; GLUCOSE, URINE (UA) NEGATIVE (NEGATIVE); KETONES,URINE NEGATIVE (NEGATIVE); LEUKOCYTE ESTERASE ,URINE NEGATIVE (NEGATIVE); NITRITE,URINE NEGATIVE (NEGATIVE); PH,URINE 6 (4.5-8.0); PROTEIN,URINE NEGATIVE (NEGATIVE); UROBILINOGEN,URINE NORMAL MG/DL (0.0-1.0)
--- NOTE | 2019-05-14 16:47 | Diagnostic Imaging Report ---
ndication: Chest pain Technique: IV administration nonionic contrast. Spiral acquisitions obtained from the lung bases to the lung apices. Multiplanar and 3-D reconstructions were generated. Total dose length product 714.74 mGycm. CTDIvol(s) 24.4 mGy. Dose reduction achieved using automated exposure control Comparison: none Findings: Pulmonary arterial opacification is adequate. There is image degradation due to motion artifact. This particularly limits evaluation in the lower lungs. No definite acute pulmonary emboli, although small peripheral emboli could be missed due to the motion artifact. The main and right pulmonary arteries are dilated, measuring 40 and 32 mm in diameter. There is four-chamber cardiomegaly without specific right ventricular dilatation. No evidence of thoracic aortic aneurysm or dissection. There is thick atherosclerotic plaquing of the aortic arch which narrows the lumen by about 30% diameter. There is normal branching anatomy and caliber of the great neck vessels. The lungs demonstrate posterior atelectatic changes. No definite infiltrates, effusions, masses, or nodules. Assessment of the lungs is somewhat limited due to motion artifact. No pericardial effusion. No mediastinal or hilar mass or adenopathy. Normal-appearing esophagus. There is a small hiatal hernia. No axillary or chest wall mass or adenopathy. The bones demonstrate multiple old healed right rib fracture deformities. The included upper abdominal anatomy is unremarkable. Impression: Limited exam, as described, due to motion artifact. This precludes confident exclusion of small peripheral emboli No evidence of acute central pulmonary embolus or other acute thoracic vascular pathology Aortic arch plaque Cardiomegaly Pulmonary atelectatic changes Old healed right rib fractures This agrees with the preliminary interpretation provided overnight by [facility] teleradiology service. The CT scanner at [facility] is accredited by the [employer] and the scans are performed using protocols designed to limit radiation exposure to as low as reasonably achievable to attain images of sufficient resolution adequate for diagnostic evaluation.
--- NOTE | 2019-05-14 17:48 | NUR ---
ED Nurse Note: Tried to call for report and spoke to [employer] operations manager of [facility]. They are unable to accept pt d/t No tele-wires available. [facility] Charge nurse notified.
[2019-05-14 18:00] VITALS: BP 135/76
[2019-05-14] MEDS ORDERED: Hydromorphone 0.5mg/0.5ml inj IVP PRN (18:15)
[2019-05-14] MEDS ORDERED: Nitroglycerin Subl 0.4mg tab SL PRN (18:15)
--- NOTE | 2019-05-14 19:00 | NUR ---
ED Nurse Note: Report given to Jose Alfredo MEYER of [facility].
--- NOTE | 2019-05-14 19:11 | NUR ---
ED Nurse Note: CALLED TO TRANSFER PATIENT. RECEIVING RNSCOTT, NOT READY. WILL BRING UP AT 1930
[2019-05-14 19:31] VITALS: BP 130/82
--- NOTE | 2019-05-14 19:40 | NUR ---
NURSE NOTES: Patient is transferred from ED via gurney and received report from MITCH Singh. Inventory check done with MITCH Mcintyre. Patient is in stable condition. No acute distress/SOB noted. Patient denies any pain/discomfort at this time. Family is at the bedside. Will continue plan of care.
[2019-05-14 20:00] VITALS: BP 129/47
[2019-05-14] MEDS: Heparin 5000 units/ml inj SUBQ SCH (20:26)
--- NOTE | 2019-05-14 21:40 | NUR ---
NURSE NOTES: Called Dr. Woods and paged for troponin level.
--- NOTE | 2019-05-14 23:37 | NUR ---
NURSE NOTES: Patient asleep. No s/sx of pain noted. Will continue plan of care.
[2019-05-15] VITALS: BP 99/39
--- NOTE | 2019-05-15 02:58 | NUR ---
NURSE NOTES: Assisted patient to restroom. Able to walk with cane with minimal assistance. Small brown soft BM noted.
[2019-05-15 04:00] VITALS: BP 131/58
--- NOTE | 2019-05-15 07:38 | NUR ---
HAND-OFF: Report given to MITCH Galloway. Endorsed plan of care.
[2019-05-15 08:00] VITALS: BP 118/61
--- NOTE | 2019-05-15 08:44 | History and Physical ---
History of Present Illness General Date patient seen: May 15, 2019 Reason for Hospitalization: Dyspnea/Respdistress Present Illness HPI 88 year old female, was in usual state of health until 05/14. She was brought it by EMS from adult day care for severe sob and desaturating to 74% on room air, placed on non rebreather and stabilized in the ER. She denies any history of Asthma or COPD (though takes montelukast), had back surgery and chronic back pain and shoulder pain. Had a NSTEMI and cardiac cath at [facility] in October showed non obstructive CAD. Denies any chest pain but had palpitations at the time of sob. In the ER she had CTA pulmonary protocol and was negative for PE, vascular issues and no evidence of consolidation. Her first troponin was negative however there was an elevation in the 2nd trop and trended down. She denies any sick contacts, recent travel, abdominal pain, n/v/d. I spoke to her daughter Costa on the phone and she may think she may have ran out of her cardiac medications. Past medical and surgical history as above Social history: Lives at home, no toxic habits Family history: Denies any illnesses in family PCP: Dr. Guillen Cardiology: Dr. derick Zambrano: Allergies: Coded Allergies: No Known Allergies (Unverified , 10/09/18) Medication History Scheduled Atorvastatin Calcium* (Lipitor*), 10 MG ORAL DAILY, (Reported) Celecoxib (Celebrex), 50 MG ORAL TWICE A DAY, (Reported) Cephalexin* (Keflex*), 500 MG ORAL EVERY 12 HOURS, (Reported) Metoprolol Tartrate* (Metoprolol Tartrate*), 25 MG ORAL EVERY 12 HOURS, ( Reported) Montelukast Sodium (Singulair), 4 MG ORAL DAILY, (Reported) Olmesartan Medoxomil (Benicar), 20 MG ORAL DAILY, (Reported) Olmesartan Medoxomil (Benicar), 20 MG ORAL DAILY, (Reported) [lovaza], 1 GM PO BID, (Reported) Miscellaneous Medications Calcium Carbonate (Calcium), 500 MG PO, (Reported) Patient History Healthcare decision maker Resuscitation status Full Code Advanced Directive on File No Review of Systems All Other Systems: negative except mentioned in HPI Physical Exam Last 24 Hour Vital Signs Date Time Temp Pulse Resp B/P (MAP) Pulse Ox O2 Delivery O2 Flow Rate FiO2 05/15/19 04:00 98.2 75 18 131/58 (82) 96 05/15/19 04:00 Room Air 05/15/19 04:00 73 05/15/19 00:00 Room Air 05/15/19 00:00 62 05/15/19 00:00 98.0 54 19 99/39 (59) 96 05/14/19 21:40 Room Air 05/14/19 20:00 98.2 69 18 129/47 (74) 95 05/14/19 19:31 98.5 72 16 130/82 98 Room Air 2.0 21 05/14/19 19:10 98.5 77 16 135/76 98 Room Air 05/14/19 18:00 98.5 77 16 135/76 98 Room Air 05/14/19 16:54 70 18 97 Room Air 21 05/14/19 16:54 77 18 97 Room Air 70 18 97 05/14/19 16:00 98.9 86 17 128/70 96 Room Air 05/14/19 14:18 75 22 Room Air 2.0 05/14/19 14:18 99.3 75 22 133/56 100 Nasal Cannula 2.0 05/14/19 14:08 99.3 68 22 142/82 (102) 100 Non-Rebreather Intake and Output 05/14/19 05/15/19 19:00 07:00 Intake Total 1000 ml 360 ml Balance 1000 ml 360 ml Intake Oral 360 ml IV Total 1000 ml # Voids 1 3 # Bowel Movements 3 Laboratory Tests Test 05/14/19 14:45 05/14/19 15:45 05/14/19 20:13 White Blood Count 7.5 K/UL (4.8-10.8) Red Blood Count 4.04 M/UL (4.20-5.40) L Hemoglobin 12.7 G/DL (12.0-16.0) Hematocrit 38.2 % (37.0-47.0) Mean Corpuscular Volume 95 FL (80-99) Mean Corpuscular Hemoglobin 31.5 PG (27.0-31.0) H Mean Corpuscular Hemoglobin Concent 33.3 G/DL (32.0-36.0) Red Cell Distribution Width 11.8 % (11.6-14.8) Platelet Count 171 K/UL (150-450) Mean Platelet Volume 7.2 FL (6.5-10.1) Neutrophils (%) (Auto) % (45.0-75.0) Lymphocytes (%) (Auto) % (20.0-45.0) Monocytes (%) (Auto) % (1.0-10.0) Eosinophils (%) (Auto) % (0.0-3.0) Basophils (%) (Auto) % (0.0-2.0) Differential Total Cells Counted 100 Neutrophils % (Manual) 77 % (45-75) H Lymphocytes % (Manual) 12 % (20-45) L Monocytes % (Manual) 3 % (1-10) Eosinophils % (Manual) 0 % (0-3) Basophils % (Manual) 0 % (0-2) Band Neutrophils 8 % (0-8) Platelet Estimate Adequate Platelet Morphology Normal Red Blood Cell Morphology Normal Prothrombin Time 10.1 SEC (9.30-11.50) Prothromb Time International Ratio 0.9 (0.9-1.1) Activated Partial Thromboplast Time 25 SEC (23-33) Sodium Level 143 MMOL/L (136-145) Potassium Level 4.4 MMOL/L (3.5-5.1) Chloride Level 108 MMOL/L (98-107) H Carbon Dioxide Level 20 MMOL/L (21-32) L Anion Gap 15 mmol/L (5-15) Blood Urea Nitrogen 30 mg/dL (7-18) H Creatinine 1.3 MG/DL (0.55-1.30) Estimat Glomerular Filtration Rate mL/min (>60) Glucose Level 151 MG/DL (74-106) H Lactic Acid Level 2.00 mmol/L (0.4-2.0) Calcium Level 9.2 MG/DL (8.5-10.1) Phosphorus Level 3.8 MG/DL (2.5-4.9) Magnesium Level 1.7 MG/DL (1.8-2.4) L Total Bilirubin 0.9 MG/DL (0.2-1.0) Aspartate Amino Transf (AST/SGOT) 36 U/L (15-37) Alanine Aminotransferase (ALT/SGPT) 19 U/L (12-78) Alkaline Phosphatase 99 U/L (46-116) Total Creatine Kinase 39 U/L (26-308) Creatine Kinase MB < 0.5 NG/ML (0.0-3.6) Creatine Kinase MB Relative Index 1.2 Troponin I 0.007 ng/mL (0.000-0.056) 0.180 ng/mL (0.000-0.056) Pro-B-Type Natriuretic Peptide 404 pg/mL (0-125) H Total Protein 7.4 G/DL (6.4-8.2) Albumin 3.4 G/DL (3.4-5.0) Globulin 4.0 g/dL Albumin/Globulin Ratio 0.9 (1.0-2.7) L Lipase 108 U/L (73-393) Urine Color Pale yellow Urine Appearance Clear Urine pH 6 (4.5-8.0) Urine Specific [place] 1.010 (1.005-1.035) Urine Protein Negative (NEGATIVE) Urine Glucose (UA) Negative (NEGATIVE) Urine Ketones Negative (NEGATIVE) Urine Blood 1+ (NEGATIVE) H Urine Nitrite Negative (NEGATIVE) Urine Bilirubin Negative (NEGATIVE) Urine Urobilinogen Normal MG/DL (0.0-1.0) Urine Leukocyte Esterase Negative (NEGATIVE) Urine RBC 2-4 /HPF (0 - 2) H Urine WBC 0-2 /HPF (0 - 2) Urine Squamous Epithelial Cells Occasional /LPF Urine Bacteria Few /HPF (NONE) Height (Feet): 5 Height (Inches): 0.00 Weight (Pounds): 128 Medications Current Medications Medications (Trade) Dose Ordered Sig/Alex Route PRN Reason Start Time Stop Time Status Last Admin Dose Admin Acetaminophen (Tylenol) 650 mg Q4H PRN ORAL Mild Pain (Pain Scale 1-3) 05/14/19 18:15 06/13/19 18:14 05/14/19 20:20 Dextrose (Dextrose 50%) 25 ml Q30M PRN IV Hypoglycemia 05/14/19 18:15 06/13/19 18:14 Dextrose (Dextrose 50%) 50 ml Q30M PRN IV Hypoglycemia 05/14/19 18:15 06/13/19 18:14 Diphenhydramine HCl (Benadryl) 25 mg Q6H PRN ORAL Itching/Pruritis 05/14/19 18:15 06/13/19 18:14 Heparin Sodium (Porcine) (Heparin 5000 units/ml) 5,000 units EVERY 12 HOURS SUBQ 05/14/19 21:00 06/13/19 20:59 05/14/19 20:26 Hydromorphone HCl (Dilaudid) 0.5 mg Q6H PRN IVP For Pain 05/14/19 18:15 05/21/19 18:14 Iopamidol (Isovue-370 150ml) 150 ml NOW PRN INJ Radiology Procedure 05/14/19 14:45 05/16/19 14:31 Nitroglycerin (Ntg) 0.4 mg Q5M PRN SL Prn Chest Pain 05/14/19 18:15 06/13/19 18:14 Ondansetron HCl (Zofran) 4 mg Q6H PRN IVP Nausea & Vomiting 05/14/19 18:15 06/13/19 18:14 Objective Narrative General Appearance: no apparent distress, alert and oriented, [place] speaking HEENT: normocephalic, atraumatic Neck: non-tender, normal alignment, supple Respiratory/Chest: chest wall non-tender, lungs clear, normal breath sounds, no respiratory distress, no accessory muscle use Cardiovascular/Chest: normal peripheral pulses, normal rate, regular rhythm, no m/r/g Abdomen: normal bowel sounds, non tender, soft, no organomegaly, no mass Extremities: normal range of motion, non-tender, normal inspection, no calf tenderness Neurologic: [employer] chief II-XII grossly normal, no motor/sensory deficits Skin: No ulcer or rahes Assessment/Plan Problem List: (1) Pulmonary hypertension ICD Codes: I27.20 - Pulmonary hypertension, unspecified SNOMED: 51408484 (2) HTN (hypertension) ICD Codes: I10 - Essential (primary) hypertension SNOMED: 07912964 (3) CAD (coronary artery disease) ICD Codes: I25.10 - Atherosclerotic heart disease of [place] coronary artery without angina pectoris SNOMED: 65295876 (4) Shortness of breath ICD Codes: R06.02 - Shortness of breath SNOMED: 925630681 Status: stable Assessment/Plan: 88 year old female with history of non obstructive CAD, pulmonary HTN on echocardiogram, HTN, NSTEMI presented with sudden onset SOB, no fever or chills. currently saturating 96% on room air. 1. SOB- pulmonary vs cardiac arrhythmias vs. ACS vs heart failure vs other systemic infections such as pneumonia vs abdominal pathology. CT chest without any over consolidation, no fever or prodromal symptoms, doubt pulmonary origin. No chest pain, negative Troponin, EKG non ischemic, makes ACS unlikely. euvolemic on exam, pro bnp 400, heart failure unlikely. UA negative, UTi unlikely. Denies abdominal pain, makes abdominal pathology unlikely. Will admit to step down, monitor on tele for arrhythmias. Cardiology consult with Dr. Reyes Trend troponin and EKG Metoprolol and statin. Monitor and treat bp. Echocardiogram to evaluate LV function Blood cultures hold off on antibiotics 2. 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 Avoid nephrotoxic agents 3. severe pulmonary hypertension on echocardiogram. Should see a design inserter for further work up as outpatient GI and dvt ppx Diet: cardiac Code: full code Time of this note does not reflect time of admission. I spent 70 minutes on this encounter, 50% on counseling and coordination of care. I spent 40 minutes reviewing previous records I spent 20 minutes in advance care planning Jim Gabriel M.D. May 15, 2019 08:44
[2019-05-15] MEDS: Heparin 5000 units/ml inj SUBQ SCH ×2 (09:44→21:13)
--- NOTE | 2019-05-15 10:30 | NUR ---
NURSE NOTES: Dr. Gabriel at bedside.
--- NOTE | 2019-05-15 10:52 | Diagnostic Imaging Report ---
Indication: Chest pain Technique: One view of the chest Comparison: none Findings: Lungs and pleural spaces are clear. The heart size is normal. Aorta is tortuous and calcified. There is right hilar vascular fullness. Impression: No acute process
--- NOTE | 2019-05-15 11:32 | Cardiology Report ---
APPROVED REPORT EKG Measurement Heart [id number] Normal sinus rhythm Left ventricular hypertrophy with repolarization abnormality Abnormal ECG
[2019-05-15 12:00] VITALS: BP 135/71
--- NOTE | 2019-05-15 12:32 | Consultation ---
History of Present Illness General Date patient seen: May 15, 2019 Time patient seen: 12:28 Chief Complaint: Dyspnea/Respdistress Present Illness HPI Pt brought in by EMS from [facility] due to SOB and was desating to 74% in room air and non rebreather applied by EMS. No hx of asthma or COPD. Also c/o chronic low back pain and has hx of back surgery. Recently seen at [facility] for chest pain and had cath with non obstructive disease, microvascular ischemia. Troponin elevated but down trending. CXR Impression: No acute process. CTA: No evidence of acute central pulmonary embolus or other acute thoracic vascular pathology Allergies: Coded Allergies: No Known Allergies (Unverified , 10/09/18) Medication History Scheduled Atorvastatin Calcium* (Lipitor*), 10 MG ORAL DAILY, (Reported) Celecoxib (Celebrex), 50 MG ORAL TWICE A DAY, (Reported) Cephalexin* (Keflex*), 500 MG ORAL EVERY 12 HOURS, (Reported) Metoprolol Tartrate* (Metoprolol Tartrate*), 25 MG ORAL EVERY 12 HOURS, ( Reported) Montelukast Sodium (Singulair), 4 MG ORAL DAILY, (Reported) Olmesartan Medoxomil (Benicar), 20 MG ORAL DAILY, (Reported) Olmesartan Medoxomil (Benicar), 20 MG ORAL DAILY, (Reported) [lovaza], 1 GM PO BID, (Reported) Miscellaneous Medications Calcium Carbonate (Calcium), 500 MG PO, (Reported) Patient History Healthcare decision maker Resuscitation status Full Code Advanced Directive on File No Review of Systems Constitutional: Reports: no symptoms Eye: Reports: no symptoms Respiratory: Reports: orthopnea, shortness of breath, [place] Cardiovascular: Reports: chest pain Gastrointestinal: Reports: no symptoms Genitourinary: Reports: no symptoms Musculoskeletal: Reports: no symptoms Skin: Reports: no symptoms Psychiatric: Reports: no symptoms Neurological: Reports: no symptoms Endocrine: Reports: no symptoms Hematologic/Lymphatic: Reports: no symptoms Physical Exam General Appearance: no apparent distress, alert Lines, tubes and drains: peripheral HEENT: normocephalic, atraumatic Neck: non-tender, normal alignment, supple, normal inspection Respiratory/Chest: chest wall non-tender, lungs clear, normal breath sounds, no respiratory distress, no accessory muscle use Cardiovascular/Chest: normal peripheral pulses, normal rate, regular rhythm Abdomen: normal bowel sounds, non tender, soft, no organomegaly, no mass Extremities: normal range of motion, non-tender, normal inspection, no calf tenderness 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, no motor/sensory deficits Last 24 Hour Vital Signs Date Time Temp Pulse Resp B/P (MAP) Pulse Ox O2 Delivery O2 Flow Rate FiO2 05/15/19 12:00 98.7 60 21 135/71 (92) 96 05/15/19 08:00 Room Air 05/15/19 08:00 98.0 68 22 118/61 (80) 96 05/15/19 07:44 69 05/15/19 04:00 98.2 75 18 131/58 (82) 96 05/15/19 04:00 Room Air 05/15/19 04:00 73 05/15/19 00:00 Room Air 05/15/19 00:00 62 05/15/19 00:00 98.0 54 19 99/39 (59) 96 05/14/19 21:40 Room Air 05/14/19 20:00 98.2 69 18 129/47 (74) 95 05/14/19 19:31 98.5 72 16 130/82 98 Room Air 2.0 21 05/14/19 19:10 98.5 77 16 135/76 98 Room Air 05/14/19 18:00 98.5 77 16 135/76 98 Room Air 05/14/19 16:54 70 18 97 Room Air 21 05/14/19 16:54 77 18 97 Room Air 70 18 97 05/14/19 16:00 98.9 86 17 128/70 96 Room Air 05/14/19 14:18 75 22 Room Air 2.0 05/14/19 14:18 99.3 75 22 133/56 100 Nasal Cannula 2.0 05/14/19 14:08 99.3 68 22 142/82 (102) 100 Non-Rebreather Intake and Output 05/14/19 05/15/19 19:00 07:00 Intake Total 1000 ml 360 ml Balance 1000 ml 360 ml Intake Oral 360 ml IV Total 1000 ml # Voids 1 3 # Bowel Movements 3 Laboratory Tests Test 05/14/19 14:45 05/14/19 15:45 05/14/19 20:13 05/15/19 10:05 White Blood Count 7.5 K/UL (4.8-10.8) Red Blood Count 4.04 M/UL (4.20-5.40) L Hemoglobin 12.7 G/DL (12.0-16.0) Hematocrit 38.2 % (37.0-47.0) Mean Corpuscular Volume 95 FL (80-99) Mean Corpuscular Hemoglobin 31.5 PG (27.0-31.0) H Mean Corpuscular Hemoglobin Concent 33.3 G/DL (32.0-36.0) Red Cell Distribution Width 11.8 % (11.6-14.8) Platelet Count 171 K/UL (150-450) Mean Platelet Volume 7.2 FL (6.5-10.1) Neutrophils (%) (Auto) % (45.0-75.0) Lymphocytes (%) (Auto) % (20.0-45.0) Monocytes (%) (Auto) % (1.0-10.0) Eosinophils (%) (Auto) % (0.0-3.0) Basophils (%) (Auto) % (0.0-2.0) Differential Total Cells Counted 100 Neutrophils % (Manual) 77 % (45-75) H Lymphocytes % (Manual) 12 % (20-45) L Monocytes % (Manual) 3 % (1-10) Eosinophils % (Manual) 0 % (0-3) Basophils % (Manual) 0 % (0-2) Band Neutrophils 8 % (0-8) Platelet Estimate Adequate Platelet Morphology Normal Red Blood Cell Morphology Normal Prothrombin Time 10.1 SEC (9.30-11.50) Prothromb Time International Ratio 0.9 (0.9-1.1) Activated Partial Thromboplast Time 25 SEC (23-33) Sodium Level 143 MMOL/L (136-145) Potassium Level 4.4 MMOL/L (3.5-5.1) Chloride Level 108 MMOL/L (98-107) H Carbon Dioxide Level 20 MMOL/L (21-32) L Anion Gap 15 mmol/L (5-15) Blood Urea Nitrogen 30 mg/dL (7-18) H Creatinine 1.3 MG/DL (0.55-1.30) Estimat Glomerular Filtration Rate mL/min (>60) Glucose Level 151 MG/DL (74-106) H Lactic Acid Level 2.00 mmol/L (0.4-2.0) Calcium Level 9.2 MG/DL (8.5-10.1) Phosphorus Level 3.8 MG/DL (2.5-4.9) Magnesium Level 1.7 MG/DL (1.8-2.4) L Total Bilirubin 0.9 MG/DL (0.2-1.0) Aspartate Amino Transf (AST/SGOT) 36 U/L (15-37) Alanine Aminotransferase (ALT/SGPT) 19 U/L (12-78) Alkaline Phosphatase 99 U/L (46-116) Total Creatine Kinase 39 U/L (26-308) Creatine Kinase MB < 0.5 NG/ML (0.0-3.6) Creatine Kinase MB Relative Index 1.2 Troponin I 0.007 ng/mL (0.000-0.056) 0.180 ng/mL (0.000-0.056) 0.153 ng/mL (0.000-0.056) Pro-B-Type Natriuretic Peptide 404 pg/mL (0-125) H Total Protein 7.4 G/DL (6.4-8.2) Albumin 3.4 G/DL (3.4-5.0) Globulin 4.0 g/dL Albumin/Globulin Ratio 0.9 (1.0-2.7) L Lipase 108 U/L (73-393) Urine Color Pale yellow Urine Appearance Clear Urine pH 6 (4.5-8.0) Urine Specific [place] 1.010 (1.005-1.035) Urine Protein Negative (NEGATIVE) Urine Glucose (UA) Negative (NEGATIVE) Urine Ketones Negative (NEGATIVE) Urine Blood 1+ (NEGATIVE) H Urine Nitrite Negative (NEGATIVE) Urine Bilirubin Negative (NEGATIVE) Urine Urobilinogen Normal MG/DL (0.0-1.0) Urine Leukocyte Esterase Negative (NEGATIVE) Urine RBC 2-4 /HPF (0 - 2) H Urine WBC 0-2 /HPF (0 - 2) Urine Squamous Epithelial Cells Occasional /LPF Urine Bacteria Few /HPF (NONE) Microbiology Date/Time Source Procedure Growth Status 05/14/19 14:45 Blood Blood Culture - Preliminary Resulted 05/14/19 14:45 Blood Blood Culture - Preliminary Resulted Height (Feet): 5 Height (Inches): 0.00 Weight (Pounds): 128 Medications Current Medications Medications (Trade) Dose Ordered Sig/Alex Route PRN Reason Start Time Stop Time Status Last Admin Dose Admin Acetaminophen (Tylenol) 650 mg Q4H PRN ORAL Mild Pain (Pain Scale 1-3) 05/14/19 18:15 06/13/19 18:14 05/14/19 20:20 Dextrose (Dextrose 50%) 25 ml Q30M PRN IV Hypoglycemia 05/14/19 18:15 06/13/19 18:14 Dextrose (Dextrose 50%) 50 ml Q30M PRN IV Hypoglycemia 05/14/19 18:15 06/13/19 18:14 Diphenhydramine HCl (Benadryl) 25 mg Q6H PRN ORAL Itching/Pruritis 05/14/19 18:15 06/13/19 18:14 Heparin Sodium (Porcine) (Heparin 5000 units/ml) 5,000 units EVERY 12 HOURS SUBQ 05/14/19 21:00 06/13/19 20:59 05/15/19 09:44 Hydromorphone HCl (Dilaudid) 0.5 mg Q6H PRN IVP For Pain 05/14/19 18:15 05/21/19 18:14 Iopamidol (Isovue-370 150ml) 150 ml NOW PRN INJ Radiology Procedure 05/14/19 14:45 05/16/19 14:31 Nitroglycerin (Ntg) 0.4 mg Q5M PRN SL Prn Chest Pain 05/14/19 18:15 06/13/19 18:14 Ondansetron HCl (Zofran) 4 mg Q6H PRN IVP Nausea & Vomiting 05/14/19 18:15 06/13/19 18:14 Assessment/Plan Status: stable Assessment/Plan: Assessment Shortness of breath Chest pain NSTEMI Elevated troponin Hypertension Plan Cath at [facility] early this year non obstructive CAD Elevated troponin multifactorial EKG no ischemia Likely microvascular ischemia Echocardiogram to evaluate LV function Nitro Statin Metoprolol Supportive care Monitor for arrhythmias Buddy Reyes MD May 15, 2019 12:32
[2019-05-15] MEDS ORDERED: Amikacin Rx to dose MISC PRN (13:30)
--- NOTE | 2019-05-15 13:35 | Infectious Diseases Prog Note ---
Assessment/Plan Assessment/Plan Full consult dictated: A) 1) gram neg bacteremia 2) ? source, ua benign 3) pmh noted 4) allergies - nkda P) 1) zosyn, amikacin 2) consider CT abdomen and pelvis 3) f/u on cultures 4) thank you Subjective Allergies: Coded Allergies: No Known Allergies (Unverified , 10/09/18) Objective Vital Signs Last 24 Hour Vital Signs Date Time Temp Pulse Resp B/P (MAP) Pulse Ox O2 Delivery O2 Flow Rate FiO2 05/15/19 12:00 98.7 60 21 135/71 (92) 96 05/15/19 12:00 Room Air 05/15/19 08:00 Room Air 05/15/19 08:00 98.0 68 22 118/61 (80) 96 05/15/19 07:44 69 05/15/19 04:00 98.2 75 18 131/58 (82) 96 05/15/19 04:00 Room Air 05/15/19 04:00 73 05/15/19 00:00 Room Air 05/15/19 00:00 62 05/15/19 00:00 98.0 54 19 99/39 (59) 96 05/14/19 21:40 Room Air 05/14/19 20:00 98.2 69 18 129/47 (74) 95 05/14/19 19:31 98.5 72 16 130/82 98 Room Air 2.0 21 05/14/19 19:10 98.5 77 16 135/76 98 Room Air 05/14/19 18:00 98.5 77 16 135/76 98 Room Air 05/14/19 16:54 70 18 97 Room Air 21 05/14/19 16:54 77 18 97 Room Air 70 18 97 05/14/19 16:00 98.9 86 17 128/70 96 Room Air 05/14/19 14:18 75 22 Room Air 2.0 05/14/19 14:18 99.3 75 22 133/56 100 Nasal Cannula 2.0 05/14/19 14:08 99.3 68 22 142/82 (102) 100 Non-Rebreather Height (Feet): 5 Height (Inches): 0.00 Weight (Pounds): 128 Microbiology Date/Time Source Procedure Growth Status 05/14/19 14:45 Blood Blood Culture - Preliminary Resulted 05/14/19 14:45 Blood Blood Culture - Preliminary Resulted Laboratory Tests Test 05/14/19 14:45 05/14/19 15:45 05/14/19 20:13 05/15/19 10:05 White Blood Count 7.5 K/UL (4.8-10.8) Red Blood Count 4.04 M/UL (4.20-5.40) L Hemoglobin 12.7 G/DL (12.0-16.0) Hematocrit 38.2 % (37.0-47.0) Mean Corpuscular Volume 95 FL (80-99) Mean Corpuscular Hemoglobin 31.5 PG (27.0-31.0) H Mean Corpuscular Hemoglobin Concent 33.3 G/DL (32.0-36.0) Red Cell Distribution Width 11.8 % (11.6-14.8) Platelet Count 171 K/UL (150-450) Mean Platelet Volume 7.2 FL (6.5-10.1) Neutrophils (%) (Auto) % (45.0-75.0) Lymphocytes (%) (Auto) % (20.0-45.0) Monocytes (%) (Auto) % (1.0-10.0) Eosinophils (%) (Auto) % (0.0-3.0) Basophils (%) (Auto) % (0.0-2.0) Differential Total Cells Counted 100 Neutrophils % (Manual) 77 % (45-75) H Lymphocytes % (Manual) 12 % (20-45) L Monocytes % (Manual) 3 % (1-10) Eosinophils % (Manual) 0 % (0-3) Basophils % (Manual) 0 % (0-2) Band Neutrophils 8 % (0-8) Platelet Estimate Adequate Platelet Morphology Normal Red Blood Cell Morphology Normal Prothrombin Time 10.1 SEC (9.30-11.50) Prothromb Time International Ratio 0.9 (0.9-1.1) Activated Partial Thromboplast Time 25 SEC (23-33) Sodium Level 143 MMOL/L (136-145) Potassium Level 4.4 MMOL/L (3.5-5.1) Chloride Level 108 MMOL/L (98-107) H Carbon Dioxide Level 20 MMOL/L (21-32) L Anion Gap 15 mmol/L (5-15) Blood Urea Nitrogen 30 mg/dL (7-18) H Creatinine 1.3 MG/DL (0.55-1.30) Estimat Glomerular Filtration Rate mL/min (>60) Glucose Level 151 MG/DL (74-106) H Lactic Acid Level 2.00 mmol/L (0.4-2.0) Calcium Level 9.2 MG/DL (8.5-10.1) Phosphorus Level 3.8 MG/DL (2.5-4.9) Magnesium Level 1.7 MG/DL (1.8-2.4) L Total Bilirubin 0.9 MG/DL (0.2-1.0) Aspartate Amino Transf (AST/SGOT) 36 U/L (15-37) Alanine Aminotransferase (ALT/SGPT) 19 U/L (12-78) Alkaline Phosphatase 99 U/L (46-116) Total Creatine Kinase 39 U/L (26-308) Creatine Kinase MB < 0.5 NG/ML (0.0-3.6) Creatine Kinase MB Relative Index 1.2 Troponin I 0.007 ng/mL (0.000-0.056) 0.180 ng/mL (0.000-0.056) 0.153 ng/mL (0.000-0.056) Pro-B-Type Natriuretic Peptide 404 pg/mL (0-125) H Total Protein 7.4 G/DL (6.4-8.2) Albumin 3.4 G/DL (3.4-5.0) Globulin 4.0 g/dL Albumin/Globulin Ratio 0.9 (1.0-2.7) L Lipase 108 U/L (73-393) Urine Color Pale yellow Urine Appearance Clear Urine pH 6 (4.5-8.0) Urine Specific [place] 1.010 (1.005-1.035) Urine Protein Negative (NEGATIVE) Urine Glucose (UA) Negative (NEGATIVE) Urine Ketones Negative (NEGATIVE) Urine Blood 1+ (NEGATIVE) H Urine Nitrite Negative (NEGATIVE) Urine Bilirubin Negative (NEGATIVE) Urine Urobilinogen Normal MG/DL (0.0-1.0) Urine Leukocyte Esterase Negative (NEGATIVE) Urine RBC 2-4 /HPF (0 - 2) H Urine WBC 0-2 /HPF (0 - 2) Urine Squamous Epithelial Cells Occasional /LPF Urine Bacteria Few /HPF (NONE) Current Medications Medications (Trade) Dose Ordered Sig/Alex Route PRN Reason Start Time Stop Time Status Last Admin Dose Admin Acetaminophen (Tylenol) 650 mg Q4H PRN ORAL Mild Pain (Pain Scale 1-3) 05/14/19 18:15 06/13/19 18:14 05/14/19 20:20 Dextrose (Dextrose 50%) 25 ml Q30M PRN IV Hypoglycemia 05/14/19 18:15 06/13/19 18:14 Dextrose (Dextrose 50%) 50 ml Q30M PRN IV Hypoglycemia 05/14/19 18:15 06/13/19 18:14 Diphenhydramine HCl (Benadryl) 25 mg Q6H PRN ORAL Itching/Pruritis 05/14/19 18:15 06/13/19 18:14 Heparin Sodium (Porcine) (Heparin 5000 units/ml) 5,000 units EVERY 12 HOURS SUBQ 05/14/19 21:00 06/13/19 20:59 05/15/19 09:44 Hydromorphone HCl (Dilaudid) 0.5 mg Q6H PRN IVP For Pain 05/14/19 18:15 05/21/19 18:14 Iopamidol (Isovue-370 150ml) 150 ml NOW PRN INJ Radiology Procedure 05/14/19 14:45 05/16/19 14:31 Nitroglycerin (Ntg) 0.4 mg Q5M PRN SL Prn Chest Pain 05/14/19 18:15 06/13/19 18:14 Ondansetron HCl (Zofran) 4 mg Q6H PRN IVP Nausea & Vomiting 05/14/19 18:15 06/13/19 18:14 Piperacillin Sod/ Tazobactam Sod 3.375 gm/Sodium Chloride 110 ml @ 27.5 mls/hr Q8HR IVPB 05/15/19 14:00 05/22/19 13:59 Monica Perez MD May 15, 2019 13:35
[2019-05-15] MEDS: Piperacillin/Tazobactam 3.375 GM in NS 110 ML IVPB SCH ×2 (14:53→21:10)
[2019-05-15 16:00] VITALS: BP 108/55
--- NOTE | 2019-05-15 16:04 | NUR ---
CASE MANAGEMENT: INITIAL REVIEW 88 YO F [facility] CC: DYSPNEA PMHx: HTN. GASTRITIS. CVA. SI:SOB. T 99.3 HR 68 RR 22 B/P 142/82 SATS 100% ON NRB CL 108 CO2 20 BUN 30 GLU 151 MG 1.7 TROPONIN 0.180 BNP 404 IS: NS BOLUS X1 PATIENT ADMITTED TO SDU 05/14/2019 @ 5970 DCP: PATIENT TO BE DISCHARGED TO HOME ONCE MEDICALLY CLEARED. PLAN OF CARE: CT ABD 2D ECHO Addendum: 05/16/19 at 0629 by Stephanie Stanley CM INTERQUAL MET
[2019-05-15] MEDS: Amikacin 400 MG in NS 110 ML IV SCH (19:03)
--- NOTE | 2019-05-15 19:19 | NUR ---
HAND-OFF: Report given to Izzy Meade RN.
--- NOTE | 2019-05-15 19:25 | NUR ---
NURSE NOTES: Report received from MITCH Galloway. Observed pt lying in the bed, awake, A/O x4, denies any pain at this time. On room air with no signs of SOB. SR on cardiac moniotr. Abd soft and round. IV on L AC 20G, TKO. Bed in the lowest position. Side rails up x3. Will continue to monitor.
[2019-05-15 20:00] VITALS: BP 94/54
[2019-05-15] MEDS ORDERED: Metoprolol 25mg tab ORAL SCH (21:00)
--- NOTE | 2019-05-15 21:00 | NUR ---
NURSE NOTES: notified regarding troponin level and no new order. Will continue to monitor.
[2019-05-16] VITALS (7 sets, daily range): BP systolic 96–125; BP diastolic 50–66
--- NOTE | 2019-05-16 01:00 | NUR ---
NURSE NOTES: Observed pt sleeping in the bed. No signs of distress noted. on 2L NC, no signs of sob. Bed bath given. Will continue to monitor.
[2019-05-16 04:51] LABS: HEMATOCRIT 34.1 % (37.0-47.0); HEMOGLOBIN 11.4 G/DL (12.0-16.0); MEAN CORPUSCULAR VOLUME 95 FL (80-99); PLATELET COUNT 90 K/UL (150-450); RED BLOOD COUNT 3.61 M/UL (4.20-5.40); RED CELL DISTRIBUTION WIDTH 11.4 % (11.6-14.8); WHITE BLOOD COUNT 14.4 K/UL (4.8-10.8)
[2019-05-16 05:00] LABS: ANION GAP 13 mmol/L (5-15); BLOOD UREA NITROGEN 26 mg/dL (7-18); CALCIUM 8.4 MG/DL (8.5-10.1); CARBON DIOXIDE 20 MMOL/L (21-32); CHLORIDE 107 MMOL/L (98-107); CREATININE 1.3 MG/DL (0.55-1.30); POTASSIUM 3.6 MMOL/L (3.5-5.1); SODIUM 140 MMOL/L (136-145)
[2019-05-16] MEDS: Piperacillin/Tazobactam 3.375 GM in NS 110 ML IVPB SCH ×3 (05:14→21:17)
--- NOTE | 2019-05-16 07:30 | NUR ---
HAND-OFF: Report given to MITCH Galloway. No distress noted at this time.
--- NOTE | 2019-05-16 08:36 | Cardiology Progress Note ---
Assessment/Plan Status: stable Assessment/Plan Assessment/Plan Status: stable Assessment/Plan: Assessment Shortness of breath Chest pain NSTEMI Elevated troponin Hypertension Pulmonary hypertension Diastolic dysfunction Plan Cath at [facility] early this year non obstructive CAD Elevated troponin multifactorial EKG no ischemia Likely microvascular ischemia and diastolic dysfunction Echocardiogram reviewed - severe pulmonary hypertension Nitro prn Statin Metoprolol Monitor for arrhythmias CT scan abdomen per ID Continue to trend troponin - if continues to rise in setting of chest pain start heparin 48 hours for NSTEMI Begin diuresis to lower filling and pulmonary pressures Pulmonary consult Subjective Cardiovascular: Reports: no symptoms Respiratory: Reports: no symptoms Gastrointestinal/Abdominal: Reports: no symptoms Genitourinary: Reports: no symptoms Subjective No acute events, vitals stable, no fevers, WBC elevated, mild CP overnight, troponin rising Echo wtih normal LV function but grade 1 diastolic dysfunction and severe pulmonary hypertension Objective Last 24 Hour Vital Signs Date Time Temp Pulse Resp B/P (MAP) Pulse Ox O2 Delivery O2 Flow Rate FiO2 05/16/19 04:00 77 05/16/19 04:00 99.5 74 25 99/51 (67) 100 05/16/19 04:00 Room Air 05/16/19 00:00 97.9 64 17 96/50 (65) 95 05/16/19 00:00 Room Air 05/16/19 00:00 74 05/15/19 21:00 66 94/54 05/15/19 20:00 Room Air 05/15/19 20:00 98.2 68 25 94/54 (67) 97 05/15/19 20:00 66 05/15/19 16:00 Room Air 05/15/19 16:00 97.9 67 20 108/55 (72) 99 05/15/19 15:29 60 05/15/19 14:04 61 05/15/19 12:00 98.7 60 21 135/71 (92) 96 05/15/19 12:00 Room Air General Appearance: no apparent distress, alert EENT: PERRL/EOMI, normal ENT inspection, TMs normal, pharynx normal Neck: non-tender, normal alignment, supple, normal inspection, no JVD Rhythm: NSR Cardiovascular: normal peripheral pulses, regular rhythm, gallop/S4 Respiratory/Chest: chest wall non-tender, lungs clear, no respiratory distress Abdomen: normal bowel sounds, non tender, soft, no organomegaly Extremities: normal range of motion, non-tender, normal inspection 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, no motor/sensory deficits Intake and Output 05/15/19 05/16/19 18:59 06:59 Intake Total 295.0 ml 137.5 ml Balance 295.0 ml 137.5 ml Intake Oral 240 ml 0 ml IV Total 55.0 ml 137.5 ml # Voids 2 2 # Bowel Movements 4 2 Laboratory Tests Test 05/15/19 10:05 05/15/19 20:50 05/16/19 03:25 Troponin I 0.153 ng/mL (0.000-0.056) 0.439 ng/mL (0.000-0.056) White Blood Count 14.4 K/UL (4.8-10.8) H Red Blood Count 3.61 M/UL (4.20-5.40) L Hemoglobin 11.4 G/DL (12.0-16.0) L Hematocrit 34.1 % (37.0-47.0) L Mean Corpuscular Volume 95 FL (80-99) Mean Corpuscular Hemoglobin 31.6 PG (27.0-31.0) H Mean Corpuscular Hemoglobin Concent 33.5 G/DL (32.0-36.0) Red Cell Distribution Width 11.4 % (11.6-14.8) L Platelet Count 90 K/UL (150-450) L Mean Platelet Volume 7.6 FL (6.5-10.1) Neutrophils (%) (Auto) % (45.0-75.0) Lymphocytes (%) (Auto) % (20.0-45.0) Monocytes (%) (Auto) % (1.0-10.0) Eosinophils (%) (Auto) % (0.0-3.0) Basophils (%) (Auto) % (0.0-2.0) Differential Total Cells Counted 100 Neutrophils % (Manual) 83 % (45-75) H Lymphocytes % (Manual) 7 % (20-45) L Monocytes % (Manual) 4 % (1-10) Eosinophils % (Manual) 1 % (0-3) Basophils % (Manual) 0 % (0-2) Band Neutrophils 5 % (0-8) Platelet Estimate Decreased L Platelet Morphology Normal Red Blood Cell Morphology Normal Sodium Level 140 MMOL/L (136-145) Potassium Level 3.6 MMOL/L (3.5-5.1) Chloride Level 107 MMOL/L (98-107) Carbon Dioxide Level 20 MMOL/L (21-32) L Anion Gap 13 mmol/L (5-15) Blood Urea Nitrogen 26 mg/dL (7-18) H Creatinine 1.3 MG/DL (0.55-1.30) Estimat Glomerular Filtration Rate mL/min (>60) Glucose Level 141 MG/DL (74-106) H Calcium Level 8.4 MG/DL (8.5-10.1) L Microbiology Date/Time Source Procedure Growth Status 05/14/19 14:45 Blood Blood Culture - Preliminary Gram Negative Bacillus 1 Resulted 05/14/19 14:45 Blood Blood Culture - Preliminary Gram Negative Bacillus 1 Resulted Buddy Reyes MD May 16, 2019 08:36
[2019-05-16] MEDS: Heparin 5000 units/ml inj SUBQ SCH ×2 (09:00→20:33)
[2019-05-16] MEDS: Metoprolol 25mg tab ORAL SCH ×2 (09:13→20:49)
[2019-05-16] MEDS: Albuterol/Ipratropium 3ml neb HHN SCH ×4 (10:55→23:00)
--- NOTE | 2019-05-16 11:25 | NUR ---
PT EVALUATION NOTE Patient seen for initial evaluation, see complete evaluation for details. Patient presents with generalized weakness, deconditioning and impaired balance which affects patient's ability to perform mobility tasks. Patient requires min assist for bed mobility and transfers, CGA for ambulation 100 ft with FWW. Patient will benefit from skilled inpatient PT intervention to address strength, balance, endurance, safety and functional mobility. Patient may benefit from short term SNF for further rehab at discharge vs home with home PT and assistance as patient lives alone in a second floor apartment without elevator access. Patient may also benefit from use of FWW for ambulation for improved balance and safety. Addendum: 05/16/19 at 1333 by JOY MOELLER PT Amended: Links added.
--- NOTE | 2019-05-16 12:27 | General Progress Note ---
Assessment/Plan Problem List: (1) Pulmonary hypertension ICD Codes: I27.20 - Pulmonary hypertension, unspecified SNOMED: 87164555 (2) HTN (hypertension) ICD Codes: I10 - Essential (primary) hypertension SNOMED: 27526720 (3) CAD (coronary artery disease) ICD Codes: I25.10 - Atherosclerotic heart disease of [place] coronary artery without angina pectoris SNOMED: 41690193 (4) Shortness of breath ICD Codes: R06.02 - Shortness of breath SNOMED: 178967912 Status: stable Assessment/Plan: 88 year old female with history of non obstructive CAD, pulmonary HTN on echocardiogram, HTN, NSTEMI presented with sudden onset SOB, no fever or chills or abdominal pain. Admitted to step down for Acute hypoxic respiratory failure. 1. Acute hypoxic respiratory failure. Found to have Gram negative bacteremia. UA negative. No over abdominal pain. CT chest negative for pneumonia. currently saturating adequately on room air continue telemetry. Pulmonary consult duonebs Antibiotics per ID. Zosyn and Amicacin. Follow up blood cultures. CT abdomen pelvis. Abdominal US to rule out gallbladder pathology as a source 2. NSTEMI/CAD/HTN Cardiology on board, Dr. Reyes patient had a cardiac cath in October 2018 at [facility], showing non obstructive CAD continue tele, metoprolol, lipitor, nitroglycerin trend troponin, if climbing will start IV heparin for 48 hours Echocardiogram- severe pulmonary hypertension. Pulmonary consult with Dr. Hdez 2. 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 Avoid nephrotoxic agents 3. severe pulmonary hypertension on echocardiogram. pulmonary consulted GI and dvt ppx Diet: cardiac Code: full code Time of this note does not reflect time of admission. I spent 40 minutes on this encounter, 50% on counseling and coordination of care. \ case discussed extensively with daughter Costa on the phone Subjective Date patient seen: May 16, 2019 ROS Limited/Unobtainable: No Constitutional: Denies: no symptoms, chills, diaphoresis, fever, malaise, weakness, other Allergies: Coded Allergies: No Known Allergies (Unverified , 10/09/18) All Systems: reviewed and negative except above Subjective seen and examined at bedside. Daughter Costa on the phone translating. Denies any sob, chest pain, papls, or abdominal pain NPO for CT abdomen pelvis Objective Last 24 Hour Vital Signs Date Time Temp Pulse Resp B/P (MAP) Pulse Ox O2 Delivery O2 Flow Rate FiO2 05/16/19 11:00 98 Nasal Cannula 2.0 28 05/16/19 10:58 60 20 98 Nasal Cannula 2.0 28 05/16/19 10:56 61 20 100 Nasal Cannula 2.0 28 64 20 98 05/16/19 09:13 67 125/66 05/16/19 08:00 98.9 67 16 125/66 (85) 99 05/16/19 08:00 Room Air 05/16/19 07:33 73 05/16/19 04:00 77 05/16/19 04:00 99.5 74 25 99/51 (67) 100 05/16/19 04:00 Room Air 05/16/19 00:00 97.9 64 17 96/50 (65) 95 05/16/19 00:00 Room Air 05/16/19 00:00 74 05/15/19 21:00 66 94/54 05/15/19 20:00 Room Air 05/15/19 20:00 98.2 68 25 94/54 (67) 97 05/15/19 20:00 66 05/15/19 16:00 Room Air 05/15/19 16:00 97.9 67 20 108/55 (72) 99 05/15/19 15:29 60 05/15/19 14:04 61 Intake and Output 05/15/19 05/16/19 19:00 07:00 Intake Total 295.0 ml 137.5 ml Balance 295.0 ml 137.5 ml Intake Oral 240 ml 0 ml IV Total 55.0 ml 137.5 ml # Voids 2 2 # Bowel Movements 4 2 Laboratory Tests 05/15/19 20:50: Troponin I 0.439H 05/16/19 03:25: Troponin I 0.229H, White Blood Count 14.4H, Red Blood Count 3.61L, Hemoglobin 11.4L, Hematocrit 34.1L, Mean Corpuscular Volume 95, Mean Corpuscular Hemoglobin 31.6H, Mean Corpuscular Hemoglobin Concent 33.5, Red Cell Distribution Width 11.4L, Platelet Count 90L, Mean Platelet Volume 7.6, Neutrophils (%) (Auto) , Lymphocytes (%) (Auto) , Monocytes (%) (Auto) , Eosinophils (%) (Auto) , Basophils (%) (Auto) , Differential Total Cells Counted 100, Neutrophils % (Manual) 83H, Lymphocytes % (Manual) 7L, Monocytes % (Manual) 4, Eosinophils % (Manual) 1, Basophils % (Manual) 0, Band Neutrophils 5 , Platelet Estimate DecreasedL, Platelet Morphology Normal, Red Blood Cell Morphology Normal, Sodium Level 140, Potassium Level 3.6, Chloride Level 107, Carbon Dioxide Level 20L, Anion Gap 13, Blood Urea Nitrogen 26H, Creatinine 1.3 , Estimat Glomerular Filtration Rate , Glucose Level 141H, Calcium Level 8.4L Height (Feet): 5 Height (Inches): 0.00 Weight (Pounds): 128 Objective General Appearance: no apparent distress, alert and oriented, Chinese speaking HEENT: normocephalic, atraumatic Neck: non-tender, normal alignment, supple Respiratory/Chest: chest wall non-tender, lungs clear, normal breath sounds, no respiratory distress, no accessory muscle use Cardiovascular/Chest: normal peripheral pulses, normal rate, regular rhythm, no m/r/g Abdomen: normal bowel sounds, soft, non distended, grimaces on deep palpation to RUQ Extremities: normal range of motion, non-tender, normal inspection, no calf tenderness 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 May 16, 2019 12:27
--- NOTE | 2019-05-16 13:58 | Diagnostic Imaging Report ---
Indication: Abdominal pain, gram-negative bacteremia Technique: Spiral acquisitions obtained through the abdomen and pelvis. Patient ingested oral contrast No IV contrast utilized, per referring physician request.. Multiplanar reconstructions were generated. Total dose length product 671.12 mGycm. CTDIvol(s) 14.12 mGy. Dose reduction achieved using automated exposure control Comparison: None Findings: There is a 2.2 cm diameter solid-appearing mass in the left kidney in the interpolar region. This has what appears to be a slightly calcified rim and some calcified contents. There is ectasia of both ureters. There is slight indistinctness of the left renal margin and slight infiltration of the perinephric fat. There is mild ectasia to both ureters. No renal or ureteral calculi demonstrated. The appendix is normal. There is no evidence of colonic diverticulosis or diverticulitis. No small bowel distention or small bowel wall thickening. Distal esophagus is unremarkable. There is equivocal mild wall thickening of the gastric antrum, probably an artifact of under distention. The duodenum is unremarkable. No free or loculated peritoneal gas or fluid is evident. Lack of IV contrast limits assessment of the solid organs. The liver demonstrates a subcentimeter low-attenuation lesion in the tip of segment 5. There is a tiny gallstone noted. No biliary ductal dilatation. The pancreas, spleen, adrenals are unremarkable no retroperitoneal or mesenteric mass or adenopathy. No pelvic mass or adenopathy. The included lung bases are unremarkable. The bones demonstrate mild lumbar scoliotic deformity and fairly extensive degenerative spondylosis changes Impression: Solid-appearing 2.2 cm diameter left renal mass. This is concerning for renal neoplasm. However, the presence of rim and internal calcification raises the possibility that this could represent an inflammatory or postinflammatory lesion. Further evaluation with sonography and/or contrast MRI should be considered. This was discussed in person with Dr. Andre Equivocal slight indistinctness to the left renal margin is infiltration of the perinephric fat, could indicate renal inflammation/infection. Graft there is nonspecific mild ectasia of the bilateral ureters without evidence of downstream obstruction Equivocal mild wall thickening of the gastric antrum, probably artifact of under distention but the possibility of gastritis or peptic ulcer disease should be considered. Cholelithiasis Subcentimeter right lobe liver lesion, too small to characterize. No further follow-up necessary Degenerative spondylosis and scoliotic deformity The CT scanner at [facility] is accredited by the [employer] and the scans are performed using protocols designed to limit radiation exposure to as low as reasonably achievable to attain images of sufficient resolution adequate for diagnostic evaluation.
--- NOTE | 2019-05-16 15:09 | Cardiology Report ---
APPROVED REPORT EXAM: Two-dimensional and M-mode echocardiogram with Doppler and color Doppler. INDICATION Left ventricular function M-Mode DIMENSIONS IVSd0.8 (0.7-1.1cm)Left Atrium (MM)3.5 (1.6-4.0cm) LVDd4.2 (3.5-5.6cm)Aortic Root2.4 (2.0-3.7cm) PWd1.1 (0.7-1.1cm)Aortic Cusp Exc.1.8 (1.5-2.0cm) LVDs2.5 (2.5-4.0cm) PWs1.2 cm Normal left ventricular chamber size, systolic function and wall motion. Left ventricular ejection fraction estimated to be 60 - 65%. Anterior Echo-free space, may be due to pericardial fat or effusion. All other cardiac chamber sizes are within normal limits. Focal aortic valve sclerosis with adequate cusp excursion. Thickened mitral valve leaflets with normal excursion. Normal pulmonic valve structure. Normal tricuspid valve structure. IVC at normal size with physiologic collapse. A color flow and spectral Doppler study was performed and revealed: Mitral diastolic velocities suggest reduced left ventricular relaxation c/w mild LV diastolic dysfunction (Grade I ). Trace mitral regurgitation. Moderate tricuspid regurgitation. Tricuspid systolic velocities suggests peak right ventricular systolic pressure of 74 mmHg consistent with severe pulmonary hypertension. Mild pulmonic regurgitation present. No aortic regurgitation.
--- NOTE | 2019-05-16 15:45 | NUR ---
NURSE NOTES: [facility] Dr. Vicente informed him regarding the CT abdo result.
--- NOTE | 2019-05-16 16:09 | Infectious Diseases Prog Note ---
Assessment/Plan Assessment/Plan Full consult dictated: A) 1) gram neg bacteremia 2) ? source, ua benign, ct noted - renal mass and ? renal margin infection/ inflammation 3) pmh noted 4) allergies - nkda P) 1) zosyn, amikacin for now 2) f/u on final blood cultures 3) monitor labs 4) d/w Dr. Gabriel Subjective Constitutional: Denies: fever HEENT: Denies: congestion Respiratory: Denies: shortness of breath Cardiovascular: Denies: chest pain Allergies: Coded Allergies: No Known Allergies (Unverified , 10/09/18) Objective Vital Signs Last 24 Hour Vital Signs Date Time Temp Pulse Resp B/P (MAP) Pulse Ox O2 Delivery O2 Flow Rate FiO2 05/16/19 15:09 77 20 100 Nasal Cannula 2.0 28 78 22 98 05/16/19 12:40 98.1 83 18 115/65 (82) 95 05/16/19 12:38 Room Air 05/16/19 12:00 98.1 83 18 115/65 (82) 95 05/16/19 11:52 80 05/16/19 11:00 98 Nasal Cannula 2.0 28 05/16/19 10:58 60 20 98 Nasal Cannula 2.0 28 05/16/19 10:56 61 20 100 Nasal Cannula 2.0 28 64 20 98 05/16/19 09:13 67 125/66 05/16/19 08:00 98.9 67 16 125/66 (85) 99 05/16/19 08:00 Room Air 05/16/19 07:33 73 05/16/19 04:00 77 05/16/19 04:00 99.5 74 25 99/51 (67) 100 05/16/19 04:00 Room Air 05/16/19 00:00 97.9 64 17 96/50 (65) 95 05/16/19 00:00 Room Air 05/16/19 00:00 74 05/15/19 21:00 66 94/54 05/15/19 20:00 Room Air 05/15/19 20:00 98.2 68 25 94/54 (67) 97 05/15/19 20:00 66 Height (Feet): 5 Height (Inches): 0.00 Weight (Pounds): 128 General Appearance: no acute distress HEENT: normocephalic, atraumatic, anicteric Respiratory/Chest: lungs clear, normal breath sounds, no respiratory distress, no accessory muscle use Cardiovascular: normal rate, regular rhythm, no gallop/murmur Abdomen: normal bowel sounds, soft, non tender, no organomegaly Microbiology Date/Time Source Procedure Growth Status 05/14/19 14:45 Blood Blood Culture - Preliminary Gram Negative Bacillus 1 Resulted 05/14/19 14:45 Blood Blood Culture - Preliminary Gram Negative Bacillus 1 Resulted 05/16/19 02:00 Stool Clostridium difficile Toxin Assay - Final Complete Laboratory Tests Test 05/15/19 20:50 05/16/19 03:25 Troponin I 0.439 ng/mL (0.000-0.056) 0.229 ng/mL (0.000-0.056) White Blood Count 14.4 K/UL (4.8-10.8) H Red Blood Count 3.61 M/UL (4.20-5.40) L Hemoglobin 11.4 G/DL (12.0-16.0) L Hematocrit 34.1 % (37.0-47.0) L Mean Corpuscular Volume 95 FL (80-99) Mean Corpuscular Hemoglobin 31.6 PG (27.0-31.0) H Mean Corpuscular Hemoglobin Concent 33.5 G/DL (32.0-36.0) Red Cell Distribution Width 11.4 % (11.6-14.8) L Platelet Count 90 K/UL (150-450) L Mean Platelet Volume 7.6 FL (6.5-10.1) Neutrophils (%) (Auto) % (45.0-75.0) Lymphocytes (%) (Auto) % (20.0-45.0) Monocytes (%) (Auto) % (1.0-10.0) Eosinophils (%) (Auto) % (0.0-3.0) Basophils (%) (Auto) % (0.0-2.0) Differential Total Cells Counted 100 Neutrophils % (Manual) 83 % (45-75) H Lymphocytes % (Manual) 7 % (20-45) L Monocytes % (Manual) 4 % (1-10) Eosinophils % (Manual) 1 % (0-3) Basophils % (Manual) 0 % (0-2) Band Neutrophils 5 % (0-8) Platelet Estimate Decreased L Platelet Morphology Normal Red Blood Cell Morphology Normal Sodium Level 140 MMOL/L (136-145) Potassium Level 3.6 MMOL/L (3.5-5.1) Chloride Level 107 MMOL/L (98-107) Carbon Dioxide Level 20 MMOL/L (21-32) L Anion Gap 13 mmol/L (5-15) Blood Urea Nitrogen 26 mg/dL (7-18) H Creatinine 1.3 MG/DL (0.55-1.30) Estimat Glomerular Filtration Rate mL/min (>60) Glucose Level 141 MG/DL (74-106) H Calcium Level 8.4 MG/DL (8.5-10.1) L Current Medications Medications (Trade) Dose Ordered Sig/Alex Route PRN Reason Start Time Stop Time Status Last Admin Dose Admin Acetaminophen (Tylenol) 650 mg Q4H PRN ORAL Mild Pain (Pain Scale 1-3) 05/14/19 18:15 06/13/19 18:14 05/14/19 20:20 Albuterol/ Ipratropium (Albuterol/ Ipratropium) 3 ml Q4HRT HHN 05/16/19 11:00 05/21/19 10:59 05/16/19 15:08 Amikacin Protocol (Amikacin pharmacy to dose) 1 ea DAILY PRN MISC Per rx protocol 05/15/19 13:30 06/14/19 13:29 Amikacin Sulfate 400 mg/Sodium Chloride 111.6 ml @ 111.6 mls/ hr Q24H IV 05/15/19 18:00 05/22/19 17:59 05/15/19 19:03 Atorvastatin Calcium (Lipitor) 10 mg BEDTIME ORAL 05/15/19 21:00 06/14/19 20:59 05/15/19 21:10 Dextrose (Dextrose 50%) 25 ml Q30M PRN IV Hypoglycemia 05/14/19 18:15 06/13/19 18:14 Dextrose (Dextrose 50%) 50 ml Q30M PRN IV Hypoglycemia 05/14/19 18:15 06/13/19 18:14 Diphenhydramine HCl (Benadryl) 25 mg Q6H PRN ORAL Itching/Pruritis 05/14/19 18:15 06/13/19 18:14 Furosemide (Lasix) 20 mg EVERY 12 HOURS ORAL 05/16/19 09:00 06/15/19 08:59 05/16/19 09:13 Heparin Sodium (Porcine) (Heparin 5000 units/ml) 5,000 units EVERY 12 HOURS SUBQ 05/14/19 21:00 06/13/19 20:59 05/15/19 21:13 Hydromorphone HCl (Dilaudid) 0.5 mg Q6H PRN IVP For Pain 05/14/19 18:15 05/21/19 18:14 Metoprolol Tartrate (Lopressor) 25 mg Q12HR ORAL 05/16/19 09:00 06/14/19 20:59 05/16/19 09:13 Nitroglycerin (Ntg) 0.4 mg Q5M PRN SL Prn Chest Pain 05/14/19 18:15 06/13/19 18:14 Ondansetron HCl (Zofran) 4 mg Q6H PRN IVP Nausea & Vomiting 05/14/19 18:15 06/13/19 18:14 Piperacillin Sod/ Tazobactam Sod 3.375 gm/Sodium Chloride 110 ml @ 27.5 mls/hr Q8HR IVPB 05/15/19 14:00 05/22/19 13:59 05/16/19 14:47 Monica Perez MD May 16, 2019 16:09
--- NOTE | 2019-05-16 16:31 | Diagnostic Imaging Report ---
Indication: Abdominal pain, abnormal renal function tests Technique: Arciniega-scale and duplex images of the upper abdomen were obtained Comparison: Reference made to abdomen pelvis CT earlier the same day Findings: Gallbladder is demonstrates a tiny gallstone. No wall thickening, nor pericholecystic fluid. Sonographic Peterson's sign is negative. Common bile duct measures 3 mm in diameter. No intrahepatic biliary ductal dilatation. Liver demonstrates normal echogenicity, no focal abnormality. Portal vein and hepatic veins are patent. Pancreas is unremarkable. Spleen is unremarkable. Left kidney measures 9.4 cm in length. Right kidney measures 8.7 cm length. Both kidneys demonstrate normal echogenicity. There is no hydronephrosis. The left kidney demonstrates a subtle 1.9 x 1.5 cm mass protruding slightly into the renal sinus. This is slightly hypoechoic to normal parenchyma appears to contain internal vascularity. . Non-aneurysmal abdominal aorta . Impression: 1.9 x 1.5 cm left renal mass, corresponding to findings reported on CT scan of earlier the same day and concerning for renal neoplasm. Cholelithiasis. Negative for dilated bile ducts. Note that the gallstone is occult on CT
[2019-05-16] MEDS ORDERED: Tubing IV Secondary IV ONE (17:02)
[2019-05-16] MEDS ORDERED: NS 275ml ONE (17:02)
--- NOTE | 2019-05-16 18:00 | NUR ---
NURSE NOTES: Dr. Gee made aware regarding trending down troponin level. With last troponin level of 0.229. No new order at this time.
[2019-05-16] MEDS: Amikacin 400 MG in NS 110 ML IV SCH (19:04)
--- NOTE | 2019-05-16 19:10 | NUR ---
NURSE NOTES: pt report received from Laverne givens, pt appears to be stable. pt is alert and oriented times 4, and is able to follow simple commands. pt cafeteria monitor shows NSR with no signs of distress noted. pt is on 2L NC and able to sat at 100%, no distress noted. pt bed is low, locked, armed, side rails up times 3. call light within reach. will continue plan of care.
--- NOTE | 2019-05-16 19:35 | NUR ---
HAND-OFF: Report given to Jenelle Carpenter RN.
[2019-05-17] VITALS (42 sets, daily range): BP systolic 72–161; BP diastolic 35–70
--- NOTE | 2019-05-17 01:44 | NUR ---
NURSE NOTES: called MD Reyes urgent line. reported to [place] that pt is sustaining HR of 150, who will relay message to MD Reyes. repeated to [place] this is an urgent matter. awaiting new orders.
--- NOTE | 2019-05-17 01:45 | NUR ---
NURSE NOTES: stat 12 lead EGK tracing preformed.
--- NOTE | 2019-05-17 01:55 | NUR ---
NURSE NOTES: called MD chauhan office (Urgent line) in [facility] and spoke to [place] to relay message that pt is first time AFIB with RVR. I repeated this is an urgent matter.
--- NOTE | 2019-05-17 02:15 | Consultation ---
DATE OF CONSULTATION: 05/16/2019 INFECTIOUS DISEASES CONSULTATION CONSULTING PHYSICIAN: Monica Perez M.D. ATTENDING PHYSICIAN: Dalton Woods M.D. REFERRING PHYSICIAN: Jim Gabriel M.D. REASON FOR CONSULTATION: Gram-negative bacteremia, sepsis, low-grade fevers, and leukocytosis. CHIEF COMPLAINT: The patient's chief complaint coming into the hospital is shortness of breath. HISTORY OF PRESENT ILLNESS: This is an 88-year-old female, who comes into [facility] with what looks like shortness of breath. The patient only has low-grade fevers, however, workup shows that she has gram-negative bacteremia with gram-negative bacilli. The patient has elevated white count. C. diff is negative. The patient, I do not believe, is Swazi-speaking. Not a very good historian at this point. Infectious Disease consultation is requested for antibiotic management in the patient with gram-negative bacteremia and gram-negative sepsis. The patient was seen yesterday by me and started on meropenem and amikacin. However, CT scan of the abdomen and pelvis, which showed renal mass on the left kidney or left renal mass concerning for renal neoplasm, but also could be inflammatory and postinflammatory lesion. It also showed left renal margin infiltration, perinephric fat, and also showed renal inflammation and infection. Urinalysis itself was benign. It was 0 to 2 white cells and leukocyte esterase negative. The patient will continue on Zosyn and amikacin pending final culture results. MAR was noted. Orders were noted. Notes and records were reviewed. Case was discussed with Dr. Gabriel. REVIEW OF SYSTEMS: CONSTITUTIONAL: The patient has no central line or [place]. She is responsive, not a very good historian. I think she is Mohawk speaking. No fevers or chills. HEAD AND NECK: No obvious head pain or neck pain. CARDIAC: No chest pain or pressors. GASTROINTESTINAL: No nausea, vomiting, abdominal pain, or diarrhea. GENITOURINARY: No CVA tenderness or [place]. PULMONARY: She came in with shortness of breath, but currently she has no short breath, cough, or congestion. No hemoptysis or secretions. SKIN: No rash or itching. EXTREMITY: No extremity pain. NEUROLOGIC: No seizures. PAST MEDICAL HISTORY: The patient has a past medical history of the following. The patient has a past medical history of hyperlipidemia or dyslipidemia. She has history of CAD and non-STEMI. She has history of COPD and asthma. She had low saturations on admission with shortness of breath. Does not look like she has a history of diabetes. She does have history of CAD. She also has history of hypertension and pulmonary hypertension in addition to CAD. She has history of chronic kidney disease and anemia. ALLERGIES: She has no known drug allergies. No antibiotic allergies. SOCIAL HISTORY: Negative for smoking, alcohol, or drug abuse. FAMILY HISTORY: Noncontributory. There is no mention of tuberculosis or cancer. MEDICATIONS: Outside medications were noted and reconciliated. Upon reviewing the MAR, she is on the following medications. She is on albuterol, furosemide, metoprolol, atorvastatin, amikacin, Zosyn, amikacin per pharmacy dosing, intravenous fluids, nitroglycerin p.r.n., acetaminophen, hydromorphone, Zofran, and diphenhydramine. PHYSICAL EXAMINATION: VITAL SIGNS: Temperature is 98.1, T-max 99.5, pulse rate 77, respiratory rate as high as 22, saturation 98%, FiO2 2 liters, and blood pressure is 115/65. Of note, her respiratory rate on admission was as high as 25 and heart rate has been as high as 86 looks like. GENERAL: Alert, responsive, and in no acute distress. HEAD AND NECK: Oral exam, no thrush. Eye exam, no icterus. Neck is supple. No JVD. Normocephalic. HEART: Regular. No gallop or murmur. No friction rub. ABDOMEN: Soft. Positive bowel sounds. Nontender. No organomegaly. LUNGS: Clear bilaterally. No rhonchi or rales. SKIN: No rash. MUSCULOSKELETAL: No effusion. Legs are without cellulitis. PERIPHERAL VASCULAR: No cyanosis. GENITOURINARY: No [place]. No CVA tenderness. LINE SITES: Without phlebitis. NEUROLOGIC: Intact, nonfocal, alert, and responsive. LABORATORY DATA: Laboratory data is as follows. Creatinine 1.3. LFTs noted. White count 14.4 and hemoglobin 11.4. Urinalysis had leukocyte esterase negative and 0 to 2 white blood cells. CULTURES: C. difficile is negative. Blood cultures, gram-negative bacilli in both sets and multiple bottles. IMAGING STUDIES: CT scan of the abdomen and pelvis showed cholelithiasis. It showed left renal margin infiltration and perinephric fat, which could be inflammation or infection. It also showed renal mass concerning for neoplasm, but also could be inflammatory or postinflammatory lesion. ASSESSMENT AND PLAN: 1. The patient has gram-negative bacteremia and gram-negative sepsis. The patient has leukocytosis and low-grade fevers. It is unclear of the source this time. However, on CT scan, it did show that there is possible inflammatory changes in the left renal region over the left kidney and it is unclear if the patient was on Keflex for outside UTI. I am not clear on this. She was on Keflex prior to admission. The CT scan does raise the possibility that she could have a UTI or pyelonephritis. Even though she has benign UA, she could have been treated prior with Keflex. At this time, I will continue amikacin and Zosyn for gram-negative coverage. Continue amikacin and Zosyn for Gram-negative bacteremia sepsis. Check final culture results in the blood cultures, identification and sensitivities of gram-negative organisms. Continue Zosyn and vancomycin. Monitor laboratories. Watch creatinine closely. The patient will need surveillance blood cultures once we know the identification. 2. Renal mass. Consider Urology evaluation. 3. Anemia. 4. Chronic kidney disease. 5. Elevated creatinine. 6. Hypertension. 7. Pulmonary hypertension. 8. Blood pressure treatment per primary. 9. COPD and asthma. 10. Hypoxia. 11. CAD. 12. History of non-STEMI. 13. No known drug allergies. 14. Social history is negative. 15. Family history is noncontributory. 16. MAR was noted. 17. Case was discussed with RN. 18. Case was discussed with Dr. Gabriel. Monica Perez M.D. DR: ABELINO JOB#: [id number] CC:
--- NOTE | 2019-05-17 02:15 | NUR ---
NURSE NOTES: MD Reyes called back, reported to MD that pt is first onset AFIB with RVR (from 12 lead EKG tracing). MD stated to start PT on Cardizem drip and transfer to ICU. Will follow plan of care.
--- NOTE | 2019-05-17 02:30 | NUR ---
NURSE NOTES: Kalpana Pharmacist from [facility] called to confirm pt is transferred to a higher level of care with Jorge hernandez. I stated pt is now transferred to ICU. Pharmacist confirmed transfer.
--- NOTE | 2019-05-17 02:30 | NUR ---
HAND-OFF: Report given to Gina MEYER ICU. pt is now transferred to ICU with all belongings. pt remains asymptomatic and stable.
[2019-05-17] MEDS: Albuterol/Ipratropium 3ml neb HHN SCH ×6 (02:35→22:38)
[2019-05-17] MEDS ORDERED: dilTIAZem HCl 25mg/5ml Inj ONE (02:54)
--- NOTE | 2019-05-17 03:00 | NUR ---
NURSE NOTES: Received pt from Caden Almanzar RN DION with chief c/o AFIB with RVR 135-145, awake alert , AOx4, speaks Tamazight most of the time, Sbp 100s/60 afebrile, Pt now started with Cardizem drip at 10mg/hr to newly inserted g20 left forearm Site atraumatic. Pt also has Rt wrist g22 for IVPB. Pt is incontinent of stools and urine, cleaned up pt and placed Purewick. Skin remained intact. Right upper arm purple skin discoloration was noted as well. On 02 at 2L/nc 02 sat >95%. NO CP nor sob noted. Family was notified by Lubna MEYER for pts transferred to ICU. Will continue to monitor.
--- NOTE | 2019-05-17 03:15 | Consultation ---
DATE OF CONSULTATION: 05/16/2019 CONSULTING PHYSICIAN: Ciro Moreno M.D. REFERRING PHYSICIAN: . REASON FOR CONSULTATION: Evaluation of renal mass. HISTORY OF PRESENT ILLNESS: This is an 88-year-old female. She was admitted with dyspnea and respiratory distress originally. She was noted to have a positive blood culture. The exact source of the sepsis is unknown. She had a workup including CT scan, which showed a solid renal mass. Urology evaluation requested. The patient denies flank pain. She denies gross hematuria. She has mild urinary frequency, occasional bladder discomfort. PAST MEDICAL HISTORY: Significant for chronic back pain. She has a history of coronary artery disease. She has hyperlipidemia. PAST SURGICAL HISTORY: She has had back surgery. CURRENT MEDICATIONS: Here in the hospital, the patient is on ipratropium, Lasix, Lopressor, Lipitor, amikacin, Zosyn, nitroglycerin, Dilaudid. ALLERGIES: No known drug allergies. SOCIAL HISTORY: She is currently nonsmoker. FAMILY HISTORY: Noncontributory. REVIEW OF SYSTEMS: As above. Again, some urinary frequency. No flank pain. PHYSICAL EXAMINATION: GENERAL: Elderly female, in no acute distress. VITAL SIGNS: Temperature is 98.1, blood pressure 116/56, pulse 94, respirations 18. HEENT: Normocephalic. NECK: Supple. ABDOMEN: Soft. BACK: No CVA tenderness. EXTREMITIES: No clubbing, cyanosis. LABORATORY DATA: UA showed 1+ blood, 2 to 4 rbc's on microscopic exam. White count is 14.4, hemoglobin 11.4, and platelets are 90,000. BUN is 26, creatinine 1.2, potassium 3.6. INR 0.9. Her blood culture is showing gram-negative bacilli. DIAGNOSTIC IMAGING STUDIES: The patient had a CT scan of the abdomen and pelvis, this was noncontrast study, was mentioned of a solid-appearing 2.2 cm diameter left renal mass. There was internal calcification. She subsequently had an abdominal ultrasound and this also showed left renal mass about 2 cm, which appears to be solid. IMPRESSION: 1. 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 2. Microhematuria. 3. Urinary frequency. 4. Possible neurogenic bladder. 5. Sepsis. PLAN AND DISCUSSION: Again, the patient does have what appears to be solid left renal mass, which may be an early renal cell carcinoma. I am not sure of this finding has anything to do with her sepsis. Her urinalysis was mostly unremarkable except for 2 to 4 rbc's. At this time, I would recommend to monitor clinically. Antibiotics as ordered. We will follow up on the results of blood culture and adjust accordingly. The renal mass will likely not need any acute intervention and this can either be monitored with serial imaging given her advanced age. At some point, the surgical excision may be considered for possible CT-guided cryoablation. Any further recommendations will be forthcoming and the patient's urinary symptoms will be monitored. Thank you for this consultation. Ciro Moreno M.D. DR: JUDE JOB#: [id number] CC:
[2019-05-17 03:31] LABS: HEMATOCRIT 32.6 % (37.0-47.0); HEMOGLOBIN 11.1 G/DL (12.0-16.0); MEAN CORPUSCULAR VOLUME 94 FL (80-99); PLATELET COUNT 93 K/UL (150-450); RED BLOOD COUNT 3.48 M/UL (4.20-5.40); RED CELL DISTRIBUTION WIDTH 11.6 % (11.6-14.8); WHITE BLOOD COUNT 13.9 K/UL (4.8-10.8)
[2019-05-17 03:52] LABS: ALANINE AMINOTRANSFERASE 35 U/L (12-78); ALBUMIN 2.4 G/DL (3.4-5.0); ALBUMIN/GLOBULIN RATIO 0.6 (1.0-2.7); ALKALINE PHOSPHATASE 131 U/L (46-116); ANION GAP 14 mmol/L (5-15); ASPARTATE AMINO TRANSFERASE 36 U/L (15-37); BILIRUBIN,TOTAL 0.8 MG/DL (0.2-1.0); BLOOD UREA NITROGEN 23 mg/dL (7-18); CALCIUM 8.6 MG/DL (8.5-10.1); CARBON DIOXIDE 20 MMOL/L (21-32); CHLORIDE 106 MMOL/L (98-107); CREATININE 1.5 MG/DL (0.55-1.30); POTASSIUM 3.1 MMOL/L (3.5-5.1); SODIUM 140 MMOL/L (136-145)
--- NOTE | 2019-05-17 04:42 | NUR ---
NURSE NOTES: Pt Still on AFib at this time rate 103/min. Bp stable.
--- NOTE | 2019-05-17 06:00 | NUR ---
NURSE NOTES: Pt had another episode of diarrhea. -cleaned up pt.
[2019-05-17] MEDS: Piperacillin/Tazobactam 3.375 GM in NS 110 ML IVPB SCH ×2 (06:02→17:40)
[2019-05-17] MEDS ORDERED: Nitroglycerin Subl 0.4mg tab SL PRN (07:00)
[2019-05-17] MEDS ORDERED: Hydromorphone 0.5mg/0.5ml inj IVP PRN (07:01)
--- NOTE | 2019-05-17 07:23 | NUR ---
NURSE NOTES: Pt still on on Afib rate 94/min bp stable. Still on cardizem drip at 10mg/hr.
--- NOTE | 2019-05-17 07:24 | NUR ---
HAND-OFF: Report given to Adriane MEYER.
--- NOTE | 2019-05-17 07:25 | NUR ---
NURSE NOTES: Received change of shift report from Helena MEYER. Pt is awake, alert, oriented x4, Spanish speaking, able to communicate basic Ukrainian. Pt is currently on 2L of oxygen via nasal cannula with O2Sat at 100%. Bilateral clear, yet diminished lung sounds are heard on auscultation. laboratory monitor displays AFib with heart rate currently fluctuating in the 80's. Temp 97.3F axillary. Denies pain at this time. Abdomen is large, round, soft/nontender to touch with hyperactive bowel sounds. External urinary catheter is in place, draining clear straw/light yellow urine. Skin is intact. Peripheral IV access is present on right wrist #22G and left FA #20G with Diltiazem drip infusing at 10mg/hour. Bed is locked, in lowest position, three side rails up and call light within easy reach. Will continue to monitor pt and follow plan of care per MD orders and protocol.
[2019-05-17] MEDS: Metoprolol 25mg tab ORAL SCH ×2 (08:43→20:45)
--- NOTE | 2019-05-17 08:58 | NUR ---
NURSE NOTES: Pt consumed breakfast meal. AM meds were administered. Remains on Diltiazem drip at 10mg/hr with heart rate in the low 80's. Pt is resting with stable VS in no apparent distress.
[2019-05-17] MEDS ORDERED: Amikacin Rx to dose MISC PRN (09:00)
[2019-05-17] MEDS ORDERED: Heparin 5000 units/ml inj SUBQ SCH (09:00)
--- NOTE | 2019-05-17 10:34 | General Progress Note ---
Assessment/Plan Problem List: (1) Pulmonary hypertension ICD Codes: I27.20 - Pulmonary hypertension, unspecified SNOMED: 25370882 (2) HTN (hypertension) ICD Codes: I10 - Essential (primary) hypertension SNOMED: 77662060 (3) CAD (coronary artery disease) ICD Codes: I25.10 - Atherosclerotic heart disease of viejas coronary artery without angina pectoris SNOMED: 88292513 (4) Shortness of breath ICD Codes: R06.02 - Shortness of breath SNOMED: 930061368 (5) Atrial fibrillation with RVR ICD Codes: I48.91 - Unspecified atrial fibrillation SNOMED: 970632478690168 (6) MIGUELINA (acute kidney injury) ICD Codes: N17.9 - Acute kidney failure, unspecified SNOMED: 1550062, 78403977 (7) Sepsis due to gram-negative bacteria ICD Codes: A41.50 - Gram-negative sepsis, unspecified SNOMED: 786111674 (8) Microhematuria ICD Codes: R31.29 - Other microscopic hematuria SNOMED: 480341335 (9) Renal mass ICD Codes: N28.89 - Other specified disorders of kidney and ureter SNOMED: 074842894 (10) Thrombocytopenia ICD Codes: D69.6 - Thrombocytopenia, unspecified SNOMED: 675538140 (11) Hypoxia ICD Codes: R09.02 - Hypoxemia SNOMED: 857531242 Status: stable Assessment/Plan: 88 year old female with history of non obstructive CAD, pulmonary HTN on echocardiogram, HTN, NSTEMI presented with sudden onset SOB, no fever or chills or abdominal pain. Admitted to step down for Acute hypoxic respiratory failure. Found to have sepsis with gram negative bacteremia. She was started on diuresis wit furosemide to lower filling and pulmonary pressures, developed Afib with rvr and transferred to ICU and stared on dilt ggt. Converted to sinus rhythm. 1. Acute hypoxic respiratory failure- resolved. Now with gram negative sepsis ( multiple bottles). ID on board. s/p Amikacin. Continue Zosyn. Source remains unknown. f/u cultures. 2. pAF, converted to NSR. Off dilt ggt. Continue rate control with metoprolol. Follow up cards recs. AF less than 12hours, will hold off on anticoagulation for now. Since patient has sepsis and hypovolemic s/p diuresis, will bolus 500 ml NS. Discussed with inspector paper products, Dr. Hdez. 3. Severe pulmonary hypertension per echo, no history of lung disease. Pulmonary consult appreciated. V/Q to r/o CTEPH, check serologies (ASHLEY, RF, HIV) . Needs outpatient PFTs and PSG. RHC in the future. 4. Non obstructive CAD. History of NSTEMI. left heart cath 10/2018 [facility]. Cardiology on board. Continue ASA, statin, metoprolol and nitroglycerin as needed. 5. MIGUELINA vs MIGUELINA on CKD. Likely from IV contrast and diuresis. Discontinue furosemide. Avoid nephrotoxic medications. Bolus of 500 ml NS. if no improvement , nephrology consult. 6. Thrombocytopenia. Likely from sepsis. Time line does not fit HIT. 4Ts score: 1. Will monitor plt count and if not better further work up. continue dvt ppx with hep sq. 7. Renal mass. urology consult. f/u recs. Diet: cardiac Code: full code I spent 40 minutes of critical care time. I spent a considerable amount of time at the bedside performing serial re-evaluations of the patient's hemodynamic and clinical status. I reviewed lab work, changed the patient's medication, spoke to consultants, and coordinated protocol in the event of atrial fibrillation. I discussed the case extensively with daughter Julissa on the phone. Time of this note may not reflect time of encounter Subjective Date patient seen: May 17, 2019 ROS Limited/Unobtainable: No Constitutional: Denies: no symptoms, chills, diaphoresis, fever, malaise, weakness, other HEENT: Denies: no symptoms, eye pain, blurred vision, tearing, double vision, ear pain, ear discharge, nose pain, nose congestion, throat pain, throat swelling, mouth pain, mouth swelling, other Cardiovascular: Reports: irregular heart rate, palpitations Respiratory: Denies: no symptoms, cough, orthopnea, shortness of breath, SOB with excertion, SOB at rest, sputum, stridor, wheezing, other Gastrointestinal/Abdominal: Denies: no symptoms, abdomen distended, abdominal pain, black stools, tarry stools, blood in stool, constipated, diarrhea, difficulty swallowing, nausea, poor appetite, poor fluid intake, rectal bleeding , vomiting, other Genitourinary: Reports: frequency, flank pain; Denies: no symptoms, burning, discharge, hematuria, incontinence, pain, urgency, other Neurologic/Psychiatric: Denies: no symptoms, anxiety, depressed, emotional problems, headache, numbness, paresthesia, pre-existing deficit, seizure, tingling, tremors, weakness, other Endocrine: Denies: no symptoms, excessive sweating, flushing, intolerance to cold, intolerance to heat, increased hunger, increased thirst, increased urine, unexplained weight gain, unexplained weight loss, other Hematologic/Lymphatic: Denies: no symptoms, anemia, easy bleeding, easy bruising, other Allergies: Coded Allergies: No Known Allergies (Unverified , 10/09/18) All Systems: reviewed and negative except above Subjective Patient seen and examined in ICU. She was transferred to the unit after she developed A. fib with RVR and started on Cardizem drip. patient daughter Julissa is on the phone while I'm seeing the patient, translating. I updated her, patient participated in this discussion. Patient is on Cardizem drip, heart rate dipping as low as 50. BP stable. On tele she has converted to sinus rhythm. She is complaining of urinary frequency. Denies cp, or sob. Feeling palps Objective Last 24 Hour Vital Signs Date Time Temp Pulse Resp B/P (MAP) Pulse Ox O2 Delivery O2 Flow Rate FiO2 05/17/19 08:43 88 103/63 05/17/19 08:42 88 103/63 05/17/19 08:30 88 20 107/43 (64) 99 05/17/19 08:00 97.7 91 18 109/46 (67) 99 05/17/19 07:30 95 22 143/54 (83) 97 05/17/19 07:11 88 20 99 Nasal Cannula 2.0 28 79 22 98 05/17/19 07:02 99 Nasal Cannula 2.0 28 05/17/19 07:00 82 19 103/63 (76) 97 05/17/19 06:30 92 19 96/53 (67) 97 05/17/19 06:00 90 19 99/62 (74) 99 05/17/19 05:30 91 19 111/64 (80) 99 05/17/19 05:00 100 19 116/57 (76) 99 05/17/19 04:30 100 22 115/47 (69) 99 05/17/19 04:00 98.2 108 18 115/37 (63) 99 05/17/19 04:00 Nasal Cannula 2.0 05/17/19 04:00 108 05/17/19 03:30 145 18 99/51 (67) 99 05/17/19 03:13 139 100/60 05/17/19 03:00 145 18 99/51 (67) 99 05/17/19 02:46 150 05/17/19 02:35 98.5 150 18 99/54 (69) 99 05/17/19 02:20 155 05/17/19 00:00 90 05/17/19 00:00 Nasal Cannula 2.0 05/17/19 00:00 97.9 91 18 95/59 (71) 99 05/16/19 20:49 110 106/51 05/16/19 20:00 Nasal Cannula 2.0 05/16/19 20:00 87 05/16/19 20:00 98.4 100 18 106/51 (69) 98 05/16/19 19:06 79 20 100 Nasal Cannula 2.0 28 78 22 99 05/16/19 19:06 99 Nasal Cannula 2.0 28 05/16/19 16:00 98.1 94 18 116/56 (76) 99 05/16/19 16:00 Nasal Cannula 2.0 05/16/19 15:32 92 05/16/19 15:09 77 20 100 Nasal Cannula 2.0 28 78 22 98 05/16/19 12:40 98.1 83 18 115/65 (82) 95 05/16/19 12:38 Room Air 05/16/19 12:00 98.1 83 18 115/65 (82) 95 05/16/19 11:52 80 05/16/19 11:00 98 Nasal Cannula 2.0 28 05/16/19 10:58 60 20 98 Nasal Cannula 2.0 28 05/16/19 10:56 61 20 100 Nasal Cannula 2.0 28 64 20 98 Intake and Output 05/16/19 05/17/19 18:59 06:59 Intake Total 497.5 ml 340.0 ml Balance 497.5 ml 340.0 ml Intake Oral 360 ml 200 ml IV Total 137.5 ml 140.0 ml # Voids 4 5 # Bowel Movements 7 3 Laboratory Tests 9/5/19 03:00: White Blood Count 13.9H, Red Blood Count 3.48L, Hemoglobin 11.1L, Hematocrit 32.6L, Mean Corpuscular Volume 94, Mean Corpuscular Hemoglobin 31.8H, Mean Corpuscular Hemoglobin Concent 33.9, Red Cell Distribution Width 11.6, Platelet Count 93L, Mean Platelet Volume 7.5, Neutrophils (%) (Auto) , Lymphocytes (%) ( Auto) , Monocytes (%) (Auto) , Eosinophils (%) (Auto) , Basophils (%) (Auto) , Sodium Level 140, Potassium Level 3.1L, Chloride Level 106, Carbon Dioxide Level 20L, Anion Gap 14, Blood Urea Nitrogen 23H, Creatinine 1.5H, Estimat Glomerular Filtration Rate , Glucose Level 159H, Calcium Level 8.6, Total Bilirubin 0.8, Aspartate Amino Transf (AST/SGOT) 36, Alanine Aminotransferase ( ALT/SGPT) 35, Alkaline Phosphatase 131H, Total Protein 6.1L, Albumin 2.4L, Globulin 3.7, Albumin/Globulin Ratio 0.6L Height (Feet): 5 Height (Inches): 0.00 Weight (Pounds): 127 Objective General Appearance: no apparent distress, alert and oriented, Setswana speaking HEENT: normocephalic, atraumatic Neck: non-tender, normal alignment, supple Respiratory/Chest: chest wall non-tender, lungs clear, normal breath sounds, no respiratory distress, no accessory muscle use Cardiovascular/Chest: normal peripheral pulses, normal rate, regular rhythm, no m/r/g Abdomen: normal bowel sounds, soft, non distended, grimaces on deep palpation to RUQ Extremities: normal range of motion, non-tender, normal inspection, no calf tenderness. 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 May 17, 2019 10:34
--- NOTE | 2019-05-17 11:00 | NUR ---
NURSE NOTES: Order was receiving from Dr Gabriel to replace Mag and KCL, with Mag 2gm IV and KCL 80meq x1 PO. Order was processed and is being followed. Pt remains on Diltiazem drip, currently at 10mg/hr. VS stable. Pt is watching TV. Denies any pain or discomfort.
--- NOTE | 2019-05-17 11:15 | NUR ---
PT NOTE Patient previously being seen by PT, transferred to ICU due to a fib and RVR. Patient discharged from PT due to change in medical condition and transfer to ICU. Will need new MD order to resume PT when medically stable. Adriane MEYER notified.
--- NOTE | 2019-05-17 11:46 | NUR ---
CASE MANAGEMENT: REVIEW 05/17/2019 SI:SOB. NSTEMI. T 97.7 HR 91 RR 18 B/P 109/46 SATS 99% ON 2L/NC WBC 13.9 K 3.1 CO2 20 BUN 23 CR 1.5 GLU 159 ALP 131 IS: LASIX PO QD LIPITOR PO QHS LOPRESSOR PO Q12H ZOSYN IV Q12H AMIKACIN IV Q24H DILTIAZEM IV Q24H ICU STATUS DCP: PATIENT TO BE DISCHARGED TO HOME ONCE MEDICALLY CLEARED. PLAN OF CARE: CT ABD 2D ECHO
--- NOTE | 2019-05-17 11:53 | NUR ---
RD ASSESSMENT & RECOMMENDATIONS SEE CARE ACTIVITY FOR COMPLETE ASSESSMENT DAILY ESTIMATED NEEDS: Needs based on Cardiac, 49kg abw 25-30 kcals/kg 8548-7224 total kcals 1-1.3 g protein/kg 49-64 g total protein 25-30 mL/kg 5836-8210 total fluid mLs NUTRITION DIAGNOSIS: * Chewing difficulty R/T poor dentition as evidenced by pt on mech soft chopped texture. * Altered nutrition related lab values R/T clinical condition as evidenced by low K (3.1), low mag (1.7), mildly elev BGs (159, 141, 151) CURRENT DIET:LOW NA, mech soft chopped PO DIET RECOMMENDATIONS: LOW NA, texture as tolerated ADDITIONAL RECOMMENDATIONS: * Calibrated bedscale wt for accurate CBW * Monitor lytes daily, replete as needed (low K + mag) * A1C for eval of glycemic control * Rec probiotics + anti-diarrheal med for diarrhea
--- NOTE | 2019-05-17 12:00 | NUR ---
NURSE NOTES: Diltiazem drip was titrated down to 5mg/hr as pt's BP and heart rate is fluctuating down/decreasing. Pt is awake, watching TV. Denies any pain or discomfort.
--- NOTE | 2019-05-17 12:06 | Urology Progress Note ---
Assessment/Plan Status: stable Assessment/Plan: 1. 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 2. Microhematuria. 3. Urinary frequency. 4. Possible neurogenic bladder. 5. Sepsis. 6. Mild MIGUELINA. abx as ordered f/u on final blood cx serial renal imaging monitor renal fxn cysto later Subjective Allergies: Coded Allergies: No Known Allergies (Unverified , 10/09/18) Subjective all noted, transferred to ICU Objective Last 24 Hour Vital Signs Date Time Temp Pulse Resp B/P (MAP) Pulse Ox O2 Delivery O2 Flow Rate FiO2 05/17/19 11:30 72 20 131/48 (75) 99 05/17/19 11:00 92 20 130/67 (88) 100 05/17/19 10:30 83 23 125/65 (85) 100 05/17/19 10:00 81 20 109/44 (65) 94 05/17/19 09:30 81 22 107/54 (71) 100 05/17/19 09:15 79 20 113/49 (70) 99 05/17/19 09:00 80 21 101/49 (66) 100 05/17/19 08:43 88 103/63 05/17/19 08:42 88 103/63 05/17/19 08:30 88 20 107/43 (64) 99 05/17/19 08:00 Nasal Cannula 2.0 05/17/19 08:00 97.7 91 18 109/46 (67) 99 05/17/19 08:00 89 05/17/19 07:30 95 22 143/54 (83) 97 05/17/19 07:11 88 20 99 Nasal Cannula 2.0 28 79 22 98 05/17/19 07:02 99 Nasal Cannula 2.0 28 05/17/19 07:00 82 19 103/63 (76) 97 05/17/19 06:30 92 19 96/53 (67) 97 05/17/19 06:00 90 19 99/62 (74) 99 05/17/19 05:30 91 19 111/64 (80) 99 05/17/19 05:00 100 19 116/57 (76) 99 05/17/19 04:30 100 22 115/47 (69) 99 05/17/19 04:00 98.2 108 18 115/37 (63) 99 05/17/19 04:00 Nasal Cannula 2.0 05/17/19 04:00 108 05/17/19 03:30 145 18 99/51 (67) 99 05/17/19 03:13 139 100/60 05/17/19 03:00 145 18 99/51 (67) 99 05/17/19 02:46 150 05/17/19 02:35 98.5 150 18 99/54 (69) 99 05/17/19 02:20 155 05/17/19 00:00 90 05/17/19 00:00 Nasal Cannula 2.0 05/17/19 00:00 97.9 91 18 95/59 (71) 99 05/16/19 20:49 110 106/51 05/16/19 20:00 Nasal Cannula 2.0 05/16/19 20:00 87 05/16/19 20:00 98.4 100 18 106/51 (69) 98 05/16/19 19:06 79 20 100 Nasal Cannula 2.0 28 78 22 99 05/16/19 19:06 99 Nasal Cannula 2.0 28 05/16/19 16:00 98.1 94 18 116/56 (76) 99 05/16/19 16:00 Nasal Cannula 2.0 05/16/19 15:32 92 05/16/19 15:09 77 20 100 Nasal Cannula 2.0 28 78 22 98 05/16/19 12:40 98.1 83 18 115/65 (82) 95 05/16/19 12:38 Room Air Intake and Output 05/16/19 05/17/19 18:59 06:59 Intake Total 497.5 ml 340.0 ml Balance 497.5 ml 340.0 ml Intake Oral 360 ml 200 ml IV Total 137.5 ml 140.0 ml # Voids 4 5 # Bowel Movements 7 3 Microbiology Date/Time Source Procedure Growth Status 05/14/19 14:45 Blood Blood Culture - Preliminary Gram Negative Bacillus 1 Resulted 05/14/19 19:03 Nasal Nares MRSA Culture - Final NO METHICILLIN RESISTANT STAPH AUREUS... Complete 05/16/19 02:00 Stool Clostridium difficile Toxin Assay - Final Complete 05/14/19 19:03 Rectum - Final NO CARBAPENEM-RESISTANT ENTEROBACTERI... Complete Current Medications Medications (Trade) Dose Ordered Sig/Alex Route PRN Reason Start Time Stop Time Status Last Admin Dose Admin Acetaminophen (Tylenol) 650 mg Q4H PRN ORAL Mild Pain (Pain Scale 1-3) 05/17/19 07:00 06/16/19 06:59 Albuterol/ Ipratropium (Albuterol/ Ipratropium) 3 ml Q4HRT HHN 05/17/19 07:00 05/21/19 10:59 05/17/19 07:01 Amikacin Protocol (Amikacin pharmacy to dose) 1 ea DAILY PRN MISC Per rx protocol 05/17/19 09:00 06/14/19 13:29 Amikacin Sulfate 400 mg/Sodium Chloride 111.6 ml @ 111.6 mls/ hr Q24H IV 05/17/19 18:00 05/22/19 17:59 Atorvastatin Calcium (Lipitor) 10 mg BEDTIME ORAL 05/17/19 21:00 06/14/19 20:59 Dextrose (Dextrose 50%) 50 ml Q30M PRN IV Hypoglycemia 05/17/19 07:15 06/13/19 18:14 Diltiazem HCl 125 mg/Dextrose 125 ml @ 0 mls/hr Q24H IV 05/17/19 07:00 06/16/19 06:59 05/17/19 08:42 Diphenhydramine HCl (Benadryl) 25 mg Q6H PRN ORAL Itching/Pruritis 05/17/19 07:01 06/16/19 07:00 Furosemide (Lasix) 20 mg EVERY 12 HOURS ORAL 05/17/19 09:00 06/15/19 08:59 05/17/19 08:42 Heparin Sodium (Porcine) (Heparin 5000 units/ml) 5,000 units EVERY 12 HOURS SUBQ 05/17/19 09:00 06/13/19 20:59 UNV Hydromorphone HCl (Dilaudid) 0.5 mg Q6H PRN IVP For Pain 05/17/19 07:01 05/24/19 07:00 Magnesium Sulfate 100 ml @ 100 mls/hr Q1H IVPB 05/17/19 11:00 05/17/19 12:59 05/17/19 11:02 Metoprolol Tartrate (Lopressor) 25 mg Q12HR ORAL 05/17/19 09:00 06/14/19 20:59 05/17/19 08:43 Nitroglycerin (Ntg) 0.4 mg Q5M PRN SL Prn Chest Pain 05/17/19 07:00 06/13/19 18:14 Ondansetron HCl (Zofran) 4 mg Q6H PRN IVP Nausea & Vomiting 05/17/19 07:01 06/16/19 07:00 Piperacillin Sod/ Tazobactam Sod 3.375 gm/Sodium Chloride 110 ml @ 27.5 mls/hr Q12HR@0600,1800 IVPB 05/17/19 18:00 05/24/19 17:59 Laboratory Tests 05/17/19 03:00: White Blood Count 13.9H, Red Blood Count 3.48L, Hemoglobin 11.1L, Hematocrit 32.6L, Mean Corpuscular Volume 94, Mean Corpuscular Hemoglobin 31.8H, Mean Corpuscular Hemoglobin Concent 33.9, Red Cell Distribution Width 11.6, Platelet Count 93L, Mean Platelet Volume 7.5, Neutrophils (%) (Auto) , Lymphocytes (%) ( Auto) , Monocytes (%) (Auto) , Eosinophils (%) (Auto) , Basophils (%) (Auto) , Sodium Level 140, Potassium Level 3.1L, Chloride Level 106, Carbon Dioxide Level 20L, Anion Gap 14, Blood Urea Nitrogen 23H, Creatinine 1.5H, Estimat Glomerular Filtration Rate , Glucose Level 159H, Calcium Level 8.6, Total Bilirubin 0.8, Aspartate Amino Transf (AST/SGOT) 36, Alanine Aminotransferase ( ALT/SGPT) 35, Alkaline Phosphatase 131H, Total Protein 6.1L, Albumin 2.4L, Globulin 3.7, Albumin/Globulin Ratio 0.6L Height (Feet): 5 Height (Inches): 0.00 Weight (Pounds): 127 Objective exam stable Ciro Moreno MD May 17, 2019 12:06
--- NOTE | 2019-05-17 12:57 | Infectious Diseases Prog Note ---
Assessment/Plan Assessment/Plan A) 1) gram neg bacteremia - ID pending, d/w microbiology and will be available tomorrow per micro 2) ? source, ua benign, ct noted - renal mass and ? renal margin infection/ inflammation 3) pmh noted 4) allergies - nkda P) 1) zosyn, discontinue amikacin 2) f/u on final blood cultures 3) monitor labs 4) in icu for af with rvr Subjective Constitutional: Denies: fever HEENT: Reports: congestion Respiratory: Denies: shortness of breath Cardiovascular: Denies: chest pain Gastrointestinal/Abdominal: Denies: nausea, vomiting, diarrhea Genitourinary: Reports: other Neurologic: Denies: headache Allergies: Coded Allergies: No Known Allergies (Unverified , 10/09/18) Objective Vital Signs Last 24 Hour Vital Signs Date Time Temp Pulse Resp B/P (MAP) Pulse Ox O2 Delivery O2 Flow Rate FiO2 05/17/19 12:30 62 19 146/60 (88) 100 05/17/19 12:00 Nasal Cannula 2.0 05/17/19 12:00 58 05/17/19 12:00 57 24 118/45 (69) 96 05/17/19 11:30 72 20 131/48 (75) 99 05/17/19 11:00 92 20 130/67 (88) 100 05/17/19 10:30 83 23 125/65 (85) 100 05/17/19 10:00 81 20 109/44 (65) 94 05/17/19 09:30 81 22 107/54 (71) 100 05/17/19 09:15 79 20 113/49 (70) 99 05/17/19 09:00 80 21 101/49 (66) 100 05/17/19 08:43 88 103/63 05/17/19 08:42 88 103/63 05/17/19 08:30 88 20 107/43 (64) 99 05/17/19 08:00 Nasal Cannula 2.0 05/17/19 08:00 97.7 91 18 109/46 (67) 99 05/17/19 08:00 89 05/17/19 07:30 95 22 143/54 (83) 97 05/17/19 07:11 88 20 99 Nasal Cannula 2.0 28 79 22 98 05/17/19 07:02 99 Nasal Cannula 2.0 28 05/17/19 07:00 82 19 103/63 (76) 97 05/17/19 06:30 92 19 96/53 (67) 97 05/17/19 06:00 90 19 99/62 (74) 99 05/17/19 05:30 91 19 111/64 (80) 99 05/17/19 05:00 100 19 116/57 (76) 99 05/17/19 04:30 100 22 115/47 (69) 99 05/17/19 04:00 98.2 108 18 115/37 (63) 99 05/17/19 04:00 Nasal Cannula 2.0 05/17/19 04:00 108 05/17/19 03:30 145 18 99/51 (67) 99 05/17/19 03:13 139 100/60 05/17/19 03:00 145 18 99/51 (67) 99 05/17/19 02:46 150 05/17/19 02:35 98.5 150 18 99/54 (69) 99 05/17/19 02:20 155 05/17/19 00:00 90 05/17/19 00:00 Nasal Cannula 2.0 05/17/19 00:00 97.9 91 18 95/59 (71) 99 05/16/19 20:49 110 106/51 05/16/19 20:00 Nasal Cannula 2.0 05/16/19 20:00 87 05/16/19 20:00 98.4 100 18 106/51 (69) 98 05/16/19 19:06 79 20 100 Nasal Cannula 2.0 28 78 22 99 05/16/19 19:06 99 Nasal Cannula 2.0 28 05/16/19 16:00 98.1 94 18 116/56 (76) 99 05/16/19 16:00 Nasal Cannula 2.0 05/16/19 15:32 92 05/16/19 15:09 77 20 100 Nasal Cannula 2.0 28 78 22 98 Height (Feet): 5 Height (Inches): 0.00 Weight (Pounds): 127 General Appearance: no acute distress HEENT: normocephalic, atraumatic, anicteric Respiratory/Chest: lungs clear, normal breath sounds, no respiratory distress, no accessory muscle use Cardiovascular: normal rate, regular rhythm, no gallop/murmur, no JVD Abdomen: normal bowel sounds, soft, non tender, no organomegaly Microbiology Date/Time Source Procedure Growth Status 05/14/19 14:45 Blood Blood Culture - Preliminary Gram Negative Bacillus 1 Resulted 05/14/19 14:45 Blood Blood Culture - Preliminary Gram Negative Bacillus 1 Resulted 05/14/19 19:03 Nasal Nares MRSA Culture - Final NO METHICILLIN RESISTANT STAPH AUREUS... Complete 05/16/19 02:00 Stool Clostridium difficile Toxin Assay - Final Complete 05/14/19 19:03 Rectum - Final NO CARBAPENEM-RESISTANT ENTEROBACTERI... Complete 05/14/19 19:00 Rectum VRE Culture - Final NO VANCOMYCIN RESISTANT ENTEROCOCCUS ... Complete Laboratory Tests Test 05/17/19 03:00 White Blood Count 13.9 K/UL (4.8-10.8) H Red Blood Count 3.48 M/UL (4.20-5.40) L Hemoglobin 11.1 G/DL (12.0-16.0) L Hematocrit 32.6 % (37.0-47.0) L Mean Corpuscular Volume 94 FL (80-99) Mean Corpuscular Hemoglobin 31.8 PG (27.0-31.0) H Mean Corpuscular Hemoglobin Concent 33.9 G/DL (32.0-36.0) Red Cell Distribution Width 11.6 % (11.6-14.8) Platelet Count 93 K/UL (150-450) L Mean Platelet Volume 7.5 FL (6.5-10.1) Neutrophils (%) (Auto) % (45.0-75.0) Lymphocytes (%) (Auto) % (20.0-45.0) Monocytes (%) (Auto) % (1.0-10.0) Eosinophils (%) (Auto) % (0.0-3.0) Basophils (%) (Auto) % (0.0-2.0) Sodium Level 140 MMOL/L (136-145) Potassium Level 3.1 MMOL/L (3.5-5.1) L Chloride Level 106 MMOL/L (98-107) Carbon Dioxide Level 20 MMOL/L (21-32) L Anion Gap 14 mmol/L (5-15) Blood Urea Nitrogen 23 mg/dL (7-18) H Creatinine 1.5 MG/DL (0.55-1.30) H Estimat Glomerular Filtration Rate mL/min (>60) Glucose Level 159 MG/DL (74-106) H Calcium Level 8.6 MG/DL (8.5-10.1) Total Bilirubin 0.8 MG/DL (0.2-1.0) Aspartate Amino Transf (AST/SGOT) 36 U/L (15-37) Alanine Aminotransferase (ALT/SGPT) 35 U/L (12-78) Alkaline Phosphatase 131 U/L (46-116) H Total Protein 6.1 G/DL (6.4-8.2) L Albumin 2.4 G/DL (3.4-5.0) L Globulin 3.7 g/dL Albumin/Globulin Ratio 0.6 (1.0-2.7) L Current Medications Medications (Trade) Dose Ordered Sig/Alex Route PRN Reason Start Time Stop Time Status Last Admin Dose Admin Acetaminophen (Tylenol) 650 mg Q4H PRN ORAL Mild Pain (Pain Scale 1-3) 05/17/19 07:00 06/16/19 06:59 Albuterol/ Ipratropium (Albuterol/ Ipratropium) 3 ml Q4HRT HHN 05/17/19 07:00 05/21/19 10:59 05/17/19 07:01 Amikacin Protocol (Amikacin pharmacy to dose) 1 ea DAILY PRN MISC Per rx protocol 05/17/19 09:00 06/14/19 13:29 Amikacin Sulfate 400 mg/Sodium Chloride 111.6 ml @ 111.6 mls/ hr Q24H IV 05/17/19 18:00 05/22/19 17:59 Atorvastatin Calcium (Lipitor) 10 mg BEDTIME ORAL 05/17/19 21:00 06/14/19 20:59 Dextrose (Dextrose 50%) 50 ml Q30M PRN IV Hypoglycemia 05/17/19 07:15 06/13/19 18:14 Diltiazem HCl 125 mg/Dextrose 125 ml @ 0 mls/hr Q24H IV 05/17/19 07:00 06/16/19 06:59 05/17/19 08:42 Diphenhydramine HCl (Benadryl) 25 mg Q6H PRN ORAL Itching/Pruritis 05/17/19 07:01 06/16/19 07:00 Furosemide (Lasix) 20 mg EVERY 12 HOURS ORAL 05/17/19 09:00 06/15/19 08:59 05/17/19 08:42 Hydromorphone HCl (Dilaudid) 0.5 mg Q6H PRN IVP For Pain 05/17/19 07:01 05/24/19 07:00 Magnesium Sulfate 100 ml @ 100 mls/hr Q1H IVPB 05/17/19 11:00 05/17/19 12:59 05/17/19 12:25 Metoprolol Tartrate (Lopressor) 25 mg Q12HR ORAL 05/17/19 09:00 06/14/19 20:59 05/17/19 08:43 Nitroglycerin (Ntg) 0.4 mg Q5M PRN SL Prn Chest Pain 05/17/19 07:00 06/13/19 18:14 Ondansetron HCl (Zofran) 4 mg Q6H PRN IVP Nausea & Vomiting 05/17/19 07:01 06/16/19 07:00 Piperacillin Sod/ Tazobactam Sod 3.375 gm/Sodium Chloride 110 ml @ 27.5 mls/hr Q12HR@0600,1800 IVPB 05/17/19 18:00 05/24/19 17:59 Rivaroxaban (Xarelto) 15 mg QPM ORAL 05/17/19 16:30 06/16/19 16:29 Monica Perez MD May 17, 2019 12:57
--- NOTE | 2019-05-17 13:00 | NUR ---
NURSE NOTES: Diltiazem drip has been placed on hold due to hypotension and bradycardia. Pt was seen by Dr Gabriel (covering for Dr Woods) and was seen by Dr Hdez. Per Dr Hdez, Lasix will be dc'd and VQ scan will be ordered. Pt's grandson is at bedside.
[2019-05-17] MEDS ORDERED: Piperacillin/Tazobactam 3.375 GM in NS 110 ML IVPB SCH (14:00)
--- NOTE | 2019-05-17 14:08 | Pulmonolgy Critical Care Note ---
Critical Care - Asmt/Plan Problems: (1) Pulmonary hypertension (2) CAD (coronary artery disease) (3) HTN (hypertension) (4) Gram-negative bacteremia (5) Paroxysmal atrial fibrillation (6) Renal mass (7) Sepsis due to gram-negative bacteria (8) Thrombocytopenia (9) MIGUELINA (acute kidney injury) Assessment/Plan: PULMONARY HTN: out of proportion to LV function and no h/o known lung disease -VQ to R/O CTEPH -Check serologies -LFT's normal, F/U HIV -Needs OP PFT's and PSG -Consider RHC in the future GRAM NEGATIVE SEPSIS: -Abx (Zosyn) per ID, F/U Cx's -? source pAF --> NSR -Off dilt gtt -Rate control -F/U cards recs -D/C AC - was in AF less than 12 hours and was likely 2/2 hypovolemia and sepsis -D/C Lasix, NS bolus 500 cc Non-Obs CAD: -LHC @ [facility] 10/2018 reviewed -ASA, statin, med management DYSPNEA: -Pulm hygiene -HHN's RENAL MASS: -W/U per MIGUELINA: likely pre-renal from diuresis -D/C lasix, NS 500 cc x 1 -W/U further if not better THROMBOCYTOPENIA: -Likely from sepsis, continue to monitor, w/u further if not better PPx: Hep SQ FC Disposition: transfer to - DION Time Spent (Minutes): 40 Notes Reviewed: saturation diver, cardio, ID, other - Discussed with: nurses, consultants, other - PMD Critical Care - Objective Last 24 Hour Vital Signs Date Time Temp Pulse Resp B/P (MAP) Pulse Ox O2 Delivery O2 Flow Rate FiO2 05/17/19 13:30 60 20 119/47 (71) 99 05/17/19 13:00 64 19 139/67 (91) 98 05/17/19 12:30 62 19 146/60 (88) 100 05/17/19 12:00 Nasal Cannula 2.0 05/17/19 12:00 58 05/17/19 12:00 97.7 57 24 118/45 (69) 96 05/17/19 11:30 72 20 131/48 (75) 99 05/17/19 11:00 92 20 130/67 (88) 100 05/17/19 10:30 83 23 125/65 (85) 100 05/17/19 10:00 81 20 109/44 (65) 94 05/17/19 09:30 81 22 107/54 (71) 100 05/17/19 09:15 79 20 113/49 (70) 99 05/17/19 09:00 80 21 101/49 (66) 100 05/17/19 08:43 88 103/63 05/17/19 08:42 88 103/63 05/17/19 08:30 88 20 107/43 (64) 99 05/17/19 08:00 Nasal Cannula 2.0 05/17/19 08:00 97.7 91 18 109/46 (67) 99 05/17/19 08:00 89 05/17/19 07:30 95 22 143/54 (83) 97 05/17/19 07:11 88 20 99 Nasal Cannula 2.0 28 79 22 98 05/17/19 07:02 99 Nasal Cannula 2.0 28 05/17/19 07:00 82 19 103/63 (76) 97 05/17/19 06:30 92 19 96/53 (67) 97 05/17/19 06:00 90 19 99/62 (74) 99 05/17/19 05:30 91 19 111/64 (80) 99 05/17/19 05:00 100 19 116/57 (76) 99 05/17/19 04:30 100 22 115/47 (69) 99 05/17/19 04:00 98.2 108 18 115/37 (63) 99 05/17/19 04:00 Nasal Cannula 2.0 05/17/19 04:00 108 05/17/19 03:30 145 18 99/51 (67) 99 05/17/19 03:13 139 100/60 05/17/19 03:00 145 18 99/51 (67) 99 05/17/19 02:46 150 05/17/19 02:35 98.5 150 18 99/54 (69) 99 05/17/19 02:20 155 05/17/19 00:00 90 05/17/19 00:00 Nasal Cannula 2.0 05/17/19 00:00 97.9 91 18 95/59 (71) 99 05/16/19 20:49 110 106/51 05/16/19 20:00 Nasal Cannula 2.0 05/16/19 20:00 87 05/16/19 20:00 98.4 100 18 106/51 (69) 98 05/16/19 19:06 79 20 100 Nasal Cannula 2.0 28 78 22 99 05/16/19 19:06 99 Nasal Cannula 2.0 28 05/16/19 16:00 98.1 94 18 116/56 (76) 99 05/16/19 16:00 Nasal Cannula 2.0 05/16/19 15:32 92 05/16/19 15:09 77 20 100 Nasal Cannula 2.0 28 78 22 98 Status: awake, other - NAD Condition: improving HEENT: atraumatic, normocephalic Neck: full ROM Lungs: clear Heart: HR/BP stable Abdomen: soft, non-tender, active bowel sounds Extremities: no C/C/E Micro: Microbiology Date/Time Source Procedure Growth Status 05/14/19 14:45 Blood Blood Culture - Preliminary Gram Negative Bacillus 1 Resulted 05/14/19 14:45 Blood Blood Culture - Preliminary Gram Negative Bacillus 1 Resulted 05/14/19 19:03 Nasal Nares MRSA Culture - Final NO METHICILLIN RESISTANT STAPH AUREUS... Complete 05/16/19 02:00 Stool Clostridium difficile Toxin Assay - Final Complete 05/14/19 19:03 Rectum - Final NO CARBAPENEM-RESISTANT ENTEROBACTERI... Complete 05/14/19 19:00 Rectum VRE Culture - Final NO VANCOMYCIN RESISTANT ENTEROCOCCUS ... Complete Blood Sugars: BS controlled Critical Care - Subjective ROS Limited/Unobtainable: Yes ICU Day: 1 Interval Events: Transferred for AFcRVR ---> NSR/SB off dilt gtt AFVSS o/w no distress No cough no SOB no CP no FC Condition: critical IV Access: peripheral EKG Rhythm: Sinus Bradycardia FI02: 28 Sputum Amount: None Fluids: SLIV I&O: Intake and Output 05/16/19 05/17/19 18:59 06:59 Intake Total 497.5 ml 340.0 ml Balance 497.5 ml 340.0 ml Intake Oral 360 ml 200 ml IV Total 137.5 ml 140.0 ml # Voids 4 5 # Bowel Movements 7 3 CXR: 05/14/16 CT-A: Impression: Limited exam, as described, due to motion artifact. This precludes confident exclusion of small peripheral emboli No evidence of acute central pulmonary embolus or other acute thoracic vascular pathology Aortic arch plaque Cardiomegaly Pulmonary atelectatic changes Old healed right rib fractures 05/16/19 CT A/P: Impression: Solid-appearing 2.2 cm diameter left renal mass. This is concerning for renal neoplasm. However, the presence of rim and internal calcification raises the possibility that this could represent an inflammatory or postinflammatory lesion. Further evaluation with sonography and/or contrast MRI should be considered. This was discussed in person with Dr. Andre Equivocal slight indistinctness to the left renal margin is infiltration of the perinephric fat, could indicate renal inflammation/infection. Graft there is nonspecific mild ectasia of the bilateral ureters without evidence of downstream obstruction Equivocal mild wall thickening of the gastric antrum, probably artifact of under distention but the possibility of gastritis or peptic ulcer disease should be considered. Cholelithiasis Subcentimeter right lobe liver lesion, too small to characterize. No further follow-up necessar Degenerative spondylosis and scoliotic deformity 05/15/19 TTE: Normal left ventricular chamber size, systolic function and wall motion. Left ventricular ejection fraction estimated to be 60 - 65%. Anterior Echo-free space, may be due to pericardial fat or effusion. All other cardiac chamber sizes are within normal limits. Focal aortic valve sclerosis with adequate cusp excursion. Thickened mitral valve leaflets with normal excursion. Normal pulmonic valve structure. Normal tricuspid valve structure. IVC at normal size with physiologic collapse. A color flow and spectral Doppler study was performed and revealed: Mitral diastolic velocities suggest reduced left ventricular relaxation c/w mild LV diastolic dysfunction (Grade I ). Trace mitral regurgitation. Moderate tricuspid regurgitation. Tricuspid systolic velocities suggests peak right ventricular systolic pressure of 74 mmHg consistent with severe pulmonary hypertension. Mild pulmonic regurgitation present. No aortic regurgitation. 10/14/18 LHC ([facility]) --> non-obstructive CAD Labs: Laboratory Tests Test 05/17/19 03:00 White Blood Count 13.9 K/UL (4.8-10.8) H Red Blood Count 3.48 M/UL (4.20-5.40) L Hemoglobin 11.1 G/DL (12.0-16.0) L Hematocrit 32.6 % (37.0-47.0) L Mean Corpuscular Volume 94 FL (80-99) Mean Corpuscular Hemoglobin 31.8 PG (27.0-31.0) H Mean Corpuscular Hemoglobin Concent 33.9 G/DL (32.0-36.0) Red Cell Distribution Width 11.6 % (11.6-14.8) Platelet Count 93 K/UL (150-450) L Mean Platelet Volume 7.5 FL (6.5-10.1) Neutrophils (%) (Auto) % (45.0-75.0) Lymphocytes (%) (Auto) % (20.0-45.0) Monocytes (%) (Auto) % (1.0-10.0) Eosinophils (%) (Auto) % (0.0-3.0) Basophils (%) (Auto) % (0.0-2.0) Sodium Level 140 MMOL/L (136-145) Potassium Level 3.1 MMOL/L (3.5-5.1) L Chloride Level 106 MMOL/L (98-107) Carbon Dioxide Level 20 MMOL/L (21-32) L Anion Gap 14 mmol/L (5-15) Blood Urea Nitrogen 23 mg/dL (7-18) H Creatinine 1.5 MG/DL (0.55-1.30) H Estimat Glomerular Filtration Rate mL/min (>60) Glucose Level 159 MG/DL (74-106) H Calcium Level 8.6 MG/DL (8.5-10.1) Total Bilirubin 0.8 MG/DL (0.2-1.0) Aspartate Amino Transf (AST/SGOT) 36 U/L (15-37) Alanine Aminotransferase (ALT/SGPT) 35 U/L (12-78) Alkaline Phosphatase 131 U/L (46-116) H Total Protein 6.1 G/DL (6.4-8.2) L Albumin 2.4 G/DL (3.4-5.0) L Globulin 3.7 g/dL Albumin/Globulin Ratio 0.6 (1.0-2.7) L Darrell Hdez MD May 17, 2019 14:08
--- NOTE | 2019-05-17 15:00 | NUR ---
NURSE NOTES: Diltiazem drip remains on hold as pt's heart rate remains in the 50's-60. Pt was cleaned and assisted with repositioning.
--- NOTE | 2019-05-17 15:51 | NUR ---
Regarding V/Q Scan: Spoke with storage battery charger Kyung. V/Q Scan will be scheduled for tomorrow Tuesday05/18/19
[2019-05-17] MEDS ORDERED: Xarelto 15mg tab ORAL SCH (16:30)
--- NOTE | 2019-05-17 17:07 | NUR ---
NURSE NOTES: VS stable, heart rate in the 60's while Diltiazem remains on hold. Pt is watching TV, denies any pain or discomfort.
[2019-05-17] MEDS ORDERED: Amikacin 400 MG in NS 110 ML IV SCH (18:00)
--- NOTE | 2019-05-17 18:00 | NUR ---
NURSE NOTES: Cardizem drip remains on hold per parameters. VS stable.
--- NOTE | 2019-05-17 19:35 | NUR ---
HAND-OFF: Report given to Arturo RN. VS stable. Endorsed plan of care.
--- NOTE | 2019-05-17 19:50 | NUR ---
NURSE NOTES: PATIENT ALERT, ORIENTED TO NAME, TIME AND PLACE, DENIED PAIN OR SOB AT THIS TIME, RESPIRATION REGULAR ON O2 2LPM VIA NC, O2 SATURATION OVER 95% NOTED AT THIS TIME, ABDOMEN SOFT, NO BOWEL MOVEMENT, REFUSED PURE WICK, PERIPHERAL LINE TO RIGHT WRIST AND LEFT FA, INTACT AND PATENT, ON BED ALAR, PROVIDED CALL LIGHT WITHIN REACH, MADE LOWER BED POSITION, WILL CONTINUE TO MONITOR.
[2019-05-17] MEDS: Heparin 5000 units/ml inj SUBQ SCH (20:45)
--- NOTE | 2019-05-17 22:06 | Cardiology Progress Note ---
Assessment/Plan Status: stable Assessment/Plan Assessment/Plan Status: stable Assessment/Plan: Assessment Shortness of breath Chest pain NSTEMI Elevated troponin Hypertension Pulmonary hypertension Diastolic dysfunction Plan Chest pain/Elevated troponin Cath at [facility] early this year non obstructive CAD Elevated troponin multifactorial EKG no ischemia Likely microvascular ischemia and diastolic dysfunction Echocardiogram reviewed - severe pulmonary hypertension Hold diuresis Pulmonary hypertension V/Q scan per pulmonary Atrial fibrillation -resolved -continue metoprolol -Continue telemetry -Anticoagulation deferred given short lasting MIGUELINA -hold diuresis -IV fluids -Renal ultrasound -Urine electrolytes Subjective Cardiovascular: Reports: no symptoms Respiratory: Reports: no symptoms Gastrointestinal/Abdominal: Reports: no symptoms Genitourinary: Reports: no symptoms Subjective Patient was transferred to ICU for rapid atrial fibrillation and started on cardizem gtt. Patient converted back to NSR and cardizem stopped, heparin was given but platelet count dropped, she was started on xarelto. Pulmonary ordered V/Q scan. Objective Last 24 Hour Vital Signs Date Time Temp Pulse Resp B/P (MAP) Pulse Ox O2 Delivery O2 Flow Rate FiO2 05/17/19 21:00 63 17 137/58 (84) 97 05/17/19 20:45 62 144/51 05/17/19 20:00 98.6 65 23 139/46 (77) 98 05/17/19 20:00 Nasal Cannula 2.0 05/17/19 19:01 64 05/17/19 19:00 64 20 130/49 (76) 100 05/17/19 18:52 58 20 100 Nasal Cannula 2.0 28 61 19 100 05/17/19 18:52 100 Nasal Cannula 2.0 28 05/17/19 18:30 64 19 132/56 (81) 99 05/17/19 18:00 64 19 161/68 (99) 99 05/17/19 17:30 65 17 152/67 (95) 92 05/17/19 17:00 61 19 125/56 (79) 97 05/17/19 16:30 63 20 120/50 (73) 97 05/17/19 16:00 Nasal Cannula 2.0 05/17/19 16:00 61 05/17/19 16:00 98.5 61 18 113/35 (61) 98 05/17/19 15:30 61 21 114/53 (73) 96 05/17/19 15:01 57 22 100 Room Air 21 58 23 100 9/5/19 15:00 63 22 130/55 (80) 98 05/17/19 14:44 57 18 101/57 (72) 99 05/17/19 14:30 61 24 72/45 (54) 96 05/17/19 14:00 59 19 121/49 (73) 98 05/17/19 13:30 60 20 119/47 (71) 99 05/17/19 13:00 64 19 139/67 (91) 98 05/17/19 12:30 62 19 146/60 (88) 100 05/17/19 12:00 Nasal Cannula 2.0 05/17/19 12:00 58 05/17/19 12:00 97.7 57 24 118/45 (69) 96 05/17/19 11:30 72 20 131/48 (75) 99 05/17/19 11:00 92 20 130/67 (88) 100 05/17/19 10:30 83 23 125/65 (85) 100 05/17/19 10:00 81 20 109/44 (65) 94 05/17/19 09:30 81 22 107/54 (71) 100 05/17/19 09:15 79 20 113/49 (70) 99 05/17/19 09:00 80 21 101/49 (66) 100 05/17/19 08:43 88 103/63 05/17/19 08:42 88 103/63 05/17/19 08:30 88 20 107/43 (64) 99 05/17/19 08:00 Nasal Cannula 2.0 05/17/19 08:00 97.7 91 18 109/46 (67) 99 05/17/19 08:00 89 05/17/19 07:30 95 22 143/54 (83) 97 05/17/19 07:11 88 20 99 Nasal Cannula 2.0 28 79 22 98 05/17/19 07:02 99 Nasal Cannula 2.0 28 05/17/19 07:00 82 19 103/63 (76) 97 05/17/19 06:30 92 19 96/53 (67) 97 05/17/19 06:00 90 19 99/62 (74) 99 05/17/19 05:30 91 19 111/64 (80) 99 05/17/19 05:00 100 19 116/57 (76) 99 9/5/19 04:30 100 22 115/47 (69) 99 05/17/19 04:00 98.2 108 18 115/37 (63) 99 05/17/19 04:00 Nasal Cannula 2.0 05/17/19 04:00 108 05/17/19 03:30 145 18 99/51 (67) 99 05/17/19 03:13 139 100/60 05/17/19 03:00 145 18 99/51 (67) 99 05/17/19 02:46 150 05/17/19 02:35 98.5 150 18 99/54 (69) 99 05/17/19 02:20 155 05/17/19 00:00 90 05/17/19 00:00 Nasal Cannula 2.0 05/17/19 00:00 97.9 91 18 95/59 (71) 99 General Appearance: no apparent distress, alert EENT: PERRL/EOMI, normal ENT inspection, TMs normal Neck: non-tender, normal alignment, supple, normal inspection, no JVD Rhythm: NSR Cardiovascular: normal peripheral pulses, normal rate Respiratory/Chest: chest wall non-tender, lungs clear, normal breath sounds Abdomen: normal bowel sounds, non tender, soft Extremities: normal range of motion, non-tender, normal inspection Neurologic: case reviewer II-XII grossly normal, no motor/sensory deficits Intake and Output 05/16/19 05/17/19 19:00 07:00 Intake Total 497.5 ml 340.0 ml Balance 497.5 ml 340.0 ml Intake Oral 360 ml 200 ml IV Total 137.5 ml 140.0 ml # Voids 4 5 # Bowel Movements 7 3 Laboratory Tests Test 05/17/19 03:00 05/17/19 15:15 White Blood Count 13.9 K/UL (4.8-10.8) H Red Blood Count 3.48 M/UL (4.20-5.40) L Hemoglobin 11.1 G/DL (12.0-16.0) L Hematocrit 32.6 % (37.0-47.0) L Mean Corpuscular Volume 94 FL (80-99) Mean Corpuscular Hemoglobin 31.8 PG (27.0-31.0) H Mean Corpuscular Hemoglobin Concent 33.9 G/DL (32.0-36.0) Red Cell Distribution Width 11.6 % (11.6-14.8) Platelet Count 93 K/UL (150-450) L Mean Platelet Volume 7.5 FL (6.5-10.1) Neutrophils (%) (Auto) % (45.0-75.0) Lymphocytes (%) (Auto) % (20.0-45.0) Monocytes (%) (Auto) % (1.0-10.0) Eosinophils (%) (Auto) % (0.0-3.0) Basophils (%) (Auto) % (0.0-2.0) Sodium Level 140 MMOL/L (136-145) Potassium Level 3.1 MMOL/L (3.5-5.1) L Chloride Level 106 MMOL/L (98-107) Carbon Dioxide Level 20 MMOL/L (21-32) L Anion Gap 14 mmol/L (5-15) Blood Urea Nitrogen 23 mg/dL (7-18) H Creatinine 1.5 MG/DL (0.55-1.30) H Estimat Glomerular Filtration Rate mL/min (>60) Glucose Level 159 MG/DL (74-106) H Calcium Level 8.6 MG/DL (8.5-10.1) Total Bilirubin 0.8 MG/DL (0.2-1.0) Aspartate Amino Transf (AST/SGOT) 36 U/L (15-37) Alanine Aminotransferase (ALT/SGPT) 35 U/L (12-78) Alkaline Phosphatase 131 U/L (46-116) H Total Protein 6.1 G/DL (6.4-8.2) L Albumin 2.4 G/DL (3.4-5.0) L Globulin 3.7 g/dL Albumin/Globulin Ratio 0.6 (1.0-2.7) L Erythrocyte Sedimentation Rate 95 MM/HR (0-30) H C-Reactive Protein, Quantitative 12.8 mg/dL (0.00-0.90) H Rheumatoid Factor Screen Pending Cyclic Citrullinated Peptide IgG Ab Pending Anti-Nuclear Antibody Screen Pending c-ANCA Titer Pending p-ANCA Titer Pending HIV (1&2) Antibody Rapid Negative (NEGATIVE) Microbiology Date/Time Source Procedure Growth Status 05/16/19 02:00 Stool Clostridium difficile Toxin Assay - Final Complete Filsoof,Buddy Walker MD May 17, 2019 22:06
--- NOTE | 2019-05-17 22:15 | NUR ---
NURSE NOTES: NO ACUTE DISTRESS NOTED AT THIS TIME.
[2019-05-18] VITALS (18 sets, daily range): BP systolic 120–164; BP diastolic 48–86
--- NOTE | 2019-05-18 00:15 | NUR ---
NURSE NOTES: ASLEEP STATUS, HR 60-70'S/MIN SR NOTED AT THIS TIME, WILL CONTINUE TO MONITOR.
--- NOTE | 2019-05-18 02:29 | NUR ---
NURSE NOTES: NO PAIN OR DISTRESS NOTED AT THIS TIME, WILL CONTINUE PLAN OF CARE.
[2019-05-18] MEDS: Albuterol/Ipratropium 3ml neb HHN SCH ×6 (02:46→23:00)
--- NOTE | 2019-05-18 04:30 | NUR ---
NURSE NOTES: MORNING CARE AND ORAL CARE WAS DONE.
[2019-05-18 04:39] LABS: BASOPHILS % (AUTO) 0.8 % (0.0-2.0); EOSINOPHILS % (AUTO) 3.5 % (0.0-3.0); HEMOGLOBIN 10.7 G/DL (12.0-16.0); LYMPHOCYTES % (AUTO) 13.5 % (20.0-45.0); MEAN CORPUSCULAR VOLUME 95 FL (80-99); MONOCYTES % (AUTO) 9.5 % (1.0-10.0); NEUTROPHILS % (AUTO) 72.8 % (45.0-75.0); PLATELET COUNT 118 K/UL (150-450); RED BLOOD COUNT 3.36 M/UL (4.20-5.40); RED CELL DISTRIBUTION WIDTH 11.9 % (11.6-14.8); WHITE BLOOD COUNT 12.6 K/UL (4.8-10.8)
[2019-05-18 04:57] LABS: ANION GAP 10 mmol/L (5-15); BLOOD UREA NITROGEN 25 mg/dL (7-18); CALCIUM 8.5 MG/DL (8.5-10.1); CARBON DIOXIDE 22 MMOL/L (21-32); CHLORIDE 110 MMOL/L (98-107); CREATININE 1.6 MG/DL (0.55-1.30); POTASSIUM 4.6 MMOL/L (3.5-5.1); SODIUM 142 MMOL/L (136-145)
--- NOTE | 2019-05-18 05:20 | NUR ---
NURSE NOTES: COUGH SIGN WITH CLEAR WHITISH PHLEGM NOTED, WILL CONTINUE TO MONITOR.
[2019-05-18] MEDS: Piperacillin/Tazobactam 3.375 GM in NS 110 ML IVPB SCH (06:05)
--- NOTE | 2019-05-18 06:20 | NUR ---
NURSE NOTES: NO ACUTE DISTRESS NOTED AT THIS SHIFT.
--- NOTE | 2019-05-18 07:15 | NUR ---
HAND-OFF: Report given to MITCH MCCLAIN.
--- NOTE | 2019-05-18 07:51 | Urology Progress Note ---
Assessment/Plan Status: stable Assessment/Plan: 1. 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 2. Microhematuria. 3. Urinary frequency. 4. Possible neurogenic bladder. 5. Sepsis. 6. Mild MIGUELINA. abx as ordered f/u on final blood cx sens serial renal imaging monitor renal fxn cysto later check PVR Subjective Allergies: Coded Allergies: No Known Allergies (Unverified , 10/09/18) Subjective all noted, cardizem drip stopped Objective Last 24 Hour Vital Signs Date Time Temp Pulse Resp B/P (MAP) Pulse Ox O2 Delivery O2 Flow Rate FiO2 05/18/19 07:09 74 21 99 Nasal Cannula 2.0 28 72 17 98 05/18/19 07:00 65 24 153/54 (87) 100 05/18/19 07:00 71 154/79 05/18/19 06:59 98 Nasal Cannula 2.0 28 05/18/19 06:00 62 21 142/59 (86) 99 05/18/19 05:00 67 19 145/58 (87) 98 05/18/19 04:00 98.3 67 18 125/51 (75) 94 05/18/19 04:00 Nasal Cannula 2.0 05/18/19 03:00 67 21 126/48 (74) 93 05/18/19 02:55 64 05/18/19 02:46 60 19 100 Room Air 21 63 19 96 05/18/19 02:00 63 22 153/57 (89) 95 05/18/19 01:00 67 16 135/54 (81) 96 05/18/19 00:00 Nasal Cannula 2.0 05/18/19 00:00 98.6 61 19 147/51 (83) 96 05/17/19 23:33 67 05/17/19 23:30 67 23 112/70 (84) 94 05/17/19 23:04 68 19 143/57 (85) 96 05/17/19 22:38 63 19 99 Nasal Cannula 2.0 28 67 15 97 05/17/19 22:00 67 21 151/57 (88) 99 05/17/19 21:00 63 17 137/58 (84) 97 05/17/19 20:45 62 144/51 05/17/19 20:00 98.6 65 23 139/46 (77) 98 05/17/19 20:00 Nasal Cannula 2.0 05/17/19 19:01 64 05/17/19 19:00 64 20 130/49 (76) 100 05/17/19 18:52 58 20 100 Nasal Cannula 2.0 28 61 19 100 05/17/19 18:52 100 Nasal Cannula 2.0 28 05/17/19 18:30 64 19 132/56 (81) 99 05/17/19 18:00 64 19 161/68 (99) 99 05/17/19 17:30 65 17 152/67 (95) 92 05/17/19 17:00 61 19 125/56 (79) 97 05/17/19 16:30 63 20 120/50 (73) 97 05/17/19 16:00 Nasal Cannula 2.0 05/17/19 16:00 61 05/17/19 16:00 98.5 61 18 113/35 (61) 98 05/17/19 15:30 61 21 114/53 (73) 96 05/17/19 15:01 57 22 100 Room Air 21 58 23 100 05/17/19 15:00 63 22 130/55 (80) 98 05/17/19 14:44 57 18 101/57 (72) 99 05/17/19 14:30 61 24 72/45 (54) 96 05/17/19 14:00 59 19 121/49 (73) 98 05/17/19 13:30 60 20 119/47 (71) 99 05/17/19 13:00 64 19 139/67 (91) 98 05/17/19 12:30 62 19 146/60 (88) 100 05/17/19 12:00 Nasal Cannula 2.0 05/17/19 12:00 58 05/17/19 12:00 97.7 57 24 118/45 (69) 96 05/17/19 11:30 72 20 131/48 (75) 99 05/17/19 11:00 92 20 130/67 (88) 100 05/17/19 10:30 83 23 125/65 (85) 100 05/17/19 10:00 81 20 109/44 (65) 94 05/17/19 09:30 81 22 107/54 (71) 100 05/17/19 09:15 79 20 113/49 (70) 99 05/17/19 09:00 80 21 101/49 (66) 100 05/17/19 08:43 88 103/63 05/17/19 08:42 88 103/63 05/17/19 08:30 88 20 107/43 (64) 99 05/17/19 08:00 Nasal Cannula 2.0 05/17/19 08:00 97.7 91 18 109/46 (67) 99 05/17/19 08:00 89 Intake and Output 05/17/19 05/18/19 19:00 07:00 Intake Total 1709.0 ml 347.5 ml Balance 1709.0 ml 347.5 ml Intake Oral 300 ml 320 ml IV Total 1409.0 ml 27.5 ml # Voids 4 4 # Bowel Movements 5 3 Microbiology Date/Time Source Procedure Growth Status 05/14/19 14:45 Blood Blood Culture - Preliminary Escherichia Coli Resulted 05/14/19 19:03 Nasal Nares MRSA Culture - Final NO METHICILLIN RESISTANT STAPH AUREUS... Complete 05/16/19 02:00 Stool Clostridium difficile Toxin Assay - Final Complete 05/14/19 19:03 Rectum - Final NO CARBAPENEM-RESISTANT ENTEROBACTERI... Complete Current Medications Medications (Trade) Dose Ordered Sig/Alex Route PRN Reason Start Time Stop Time Status Last Admin Dose Admin Acetaminophen (Tylenol) 650 mg Q4H PRN ORAL Mild Pain (Pain Scale 1-3) 05/17/19 07:00 06/16/19 06:59 Albuterol/ Ipratropium (Albuterol/ Ipratropium) 3 ml Q4HRT HHN 05/17/19 07:00 05/21/19 10:59 05/18/19 06:59 Aspirin (ASA) 81 mg DAILY ORAL 05/18/19 09:00 06/17/19 08:59 Atorvastatin Calcium (Lipitor) 10 mg BEDTIME ORAL 05/17/19 21:00 06/14/19 20:59 05/17/19 20:45 Dextrose (Dextrose 50%) 50 ml Q30M PRN IV Hypoglycemia 05/17/19 07:15 06/13/19 18:14 Diltiazem HCl 125 mg/Dextrose 125 ml @ 0 mls/hr Q24H IV 05/17/19 07:00 06/16/19 06:59 05/17/19 08:42 Diphenhydramine HCl (Benadryl) 25 mg Q6H PRN ORAL Itching/Pruritis 05/17/19 07:01 06/16/19 07:00 Heparin Sodium (Porcine) (Heparin 5000 units/ml) 5,000 units EVERY 12 HOURS SUBQ 05/17/19 21:00 06/16/19 20:59 Hydromorphone HCl (Dilaudid) 0.5 mg Q6H PRN IVP For Pain 05/17/19 07:01 05/24/19 07:00 Metoprolol Tartrate (Lopressor) 25 mg Q12HR ORAL 05/17/19 09:00 06/14/19 20:59 05/17/19 20:45 Nitroglycerin (Ntg) 0.4 mg Q5M PRN SL Prn Chest Pain 05/17/19 07:00 06/13/19 18:14 Ondansetron HCl (Zofran) 4 mg Q6H PRN IVP Nausea & Vomiting 05/17/19 07:01 06/16/19 07:00 Piperacillin Sod/ Tazobactam Sod 3.375 gm/Sodium Chloride 110 ml @ 27.5 mls/hr Q12HR@0600,1800 IVPB 05/17/19 18:00 05/24/19 17:59 05/18/19 06:05 Laboratory Tests 05/17/19 15:15: Erythrocyte Sedimentation Rate 95H, C-Reactive Protein, Quantitative 12.8H, Rheumatoid Factor Screen [Pending], Cyclic Citrullinated Peptide IgG Ab [Pending ], Anti-Nuclear Antibody Screen [Pending], c-ANCA Titer [Pending], p-ANCA Titer [Pending], HIV (1&2) Antibody Rapid Negative 05/18/19 03:30: White Blood Count 12.6H, Red Blood Count 3.36L, Hemoglobin 10.7L, Hematocrit 32.0L, Mean Corpuscular Volume 95, Mean Corpuscular Hemoglobin 31.8H, Mean Corpuscular Hemoglobin Concent 33.4, Red Cell Distribution Width 11.9, Platelet Count 118L, Mean Platelet Volume 7.7, Neutrophils (%) (Auto) 72.8, Lymphocytes ( %) (Auto) 13.5L, Monocytes (%) (Auto) 9.5, Eosinophils (%) (Auto) 3.5H, Basophils (%) (Auto) 0.8, Sodium Level 142, Potassium Level 4.6, Chloride Level 110H, Carbon Dioxide Level 22, Anion Gap 10, Blood Urea Nitrogen 25H, Creatinine 1.6H, Estimat Glomerular Filtration Rate , Glucose Level 130H, Calcium Level 8.5, Magnesium Level 2.1 Height (Feet): 5 Height (Inches): 0.00 Weight (Pounds): 127 Objective exam stable Ciro Moreno MD May 18, 2019 07:51
--- NOTE | 2019-05-18 08:09 | NUR ---
NURSE NOTES: Pt received from MITCH Morris.Alert and oriented x 3, Kyrgyz speaking and understand senegalese. No apparent acute distress, afebrile and on O2 via nasal canula at 2LPM. SR on the monitor. Abdomen soft and non distended.Bowel sound present in all 4 quadrants.Peripheral line with TKO,RW/22G and RFA/20 patent with no apparent s/s infiltration.Pt refused external catheter and prefer to use diaper for incontinence.Bladder scan done and 44cc residual noted post void. Noted with small redness around the perineal area A&D applied.Pt able to self repositioned and assist in turning and repositioning every 2 hrs.Call light within easy reach. Side rail lock and in low position.Will continue to monitor.
[2019-05-18] MEDS: Metoprolol 25mg tab ORAL SCH ×2 (08:40→20:57)
[2019-05-18] MEDS: Heparin 5000 units/ml inj SUBQ SCH ×2 (08:44→20:56)
[2019-05-18] MEDS ORDERED: Aspirin Baby 81mg ORAL SCH (09:00)
--- NOTE | 2019-05-18 09:51 | NUR ---
NURSE NOTES: Pt seen by Dr Gabriel, update given and made aware E.Coli and last Troponin level. Per Dr Gabriel pt can be transfer to [facility].Dr Costa made aware.Will follow up new order
--- NOTE | 2019-05-18 10:14 | General Progress Note ---
Assessment/Plan Problem List: (1) Pulmonary hypertension ICD Codes: I27.20 - Pulmonary hypertension, unspecified SNOMED: 44374455 (2) HTN (hypertension) ICD Codes: I10 - Essential (primary) hypertension SNOMED: 98747535 (3) CAD (coronary artery disease) ICD Codes: I25.10 - Atherosclerotic heart disease of koi coronary artery without angina pectoris SNOMED: 41056222 (4) Shortness of breath ICD Codes: R06.02 - Shortness of breath SNOMED: 597360582 (5) Atrial fibrillation with RVR ICD Codes: I48.91 - Unspecified atrial fibrillation SNOMED: 193083233792700 (6) MIGUELINA (acute kidney injury) ICD Codes: N17.9 - Acute kidney failure, unspecified SNOMED: 3102471, 00937402 (7) Sepsis due to gram-negative bacteria ICD Codes: A41.50 - Gram-negative sepsis, unspecified SNOMED: 556326863 (8) Microhematuria ICD Codes: R31.29 - Other microscopic hematuria SNOMED: 225668264 (9) Renal mass ICD Codes: N28.89 - Other specified disorders of kidney and ureter SNOMED: 725050845 (10) Thrombocytopenia ICD Codes: D69.6 - Thrombocytopenia, unspecified SNOMED: 740298380 (11) Hypoxia ICD Codes: R09.02 - Hypoxemia SNOMED: 417648622 (12) E coli bacteremia ICD Codes: R78.81 - Bacteremia SNOMED: 755920844872 Status: stable Assessment/Plan: 88 year old female with history of non obstructive CAD, pulmonary HTN on echocardiogram, HTN, NSTEMI presented with sudden onset SOB, no fever or chills or abdominal pain. Admitted to step down for Acute hypoxic respiratory failure. Found to have sepsis with gram negative bacteremia. She was started on diuresis wit furosemide to lower filling and pulmonary pressures, developed Afib with rvr and transferred to ICU and stared on dilt ggt. Converted to sinus rhythm. Now off dilt ggt and NSR in 60's 1. Acute hypoxic respiratory failure- resolved. Now with E.Coli sepsis and bacteremia (multiple bottles). ID on board. s/p Amikacin. Receiving Zosyn. Sensitivities reviewed. Resistant to Zosyn. Will start Lefloxacin renal dosed ( 500 q24hr). Discussed with ID. 2. pAF, converted to NSR. Off dilt ggt. Continue rate control with metoprolol. Follow up cards recs. AF less than 12hours, will hold off on anticoagulation for now. Since patient has sepsis and hypovolemic s/p diuresis, s/p bolus 500 ml NS on 05/17. Discussed with fruit loader machine operator, Dr. Hdez. Hold off diuresis and IVF. 3. Severe pulmonary hypertension per echo, no history of lung disease. Pulmonary consult appreciated. V/Q to r/o CTEPH, check serologies (ASHLEY, RF, HIV) . Needs outpatient PFTs and PSG. RHC in the future. 4. Non obstructive CAD. History of NSTEMI. left heart cath 10/2018 [facility]. Cardiology on board. Continue ASA, statin, metoprolol and nitroglycerin as needed. 5. MIGUELINA vs MIGUELINA on CKD. Likely from IV contrast and diuresis. Discontinued furosemide on 05/17. Avoid nephrotoxic medications. if no improvement, nephrology consult. 6. Thrombocytopenia. Likely from sepsis. Time line does not fit HIT. 4Ts score: 1. Will monitor plt count and if not better further work up. continue dvt ppx with hep sq. Platelet count has increased to 118 today. 7. Renal mass. urology consult. f/u recs. Watch for now. No acute intervention Diet: cardiac Code: full code Disposition: Downgrade to step down I spent 40 minutes on this encounter. 50% spent on counseling and care coordination. I discussed the case extensively with daughter Julissa on the phone. Time of this note may not reflect time of encounter Subjective Date patient seen: May 18, 2019 ROS Limited/Unobtainable: No Constitutional: Denies: no symptoms, chills, diaphoresis, fever, malaise, weakness, other HEENT: Denies: no symptoms, eye pain, blurred vision, tearing, double vision, ear pain, ear discharge, nose pain, nose congestion, throat pain, throat swelling, mouth pain, mouth swelling, other Cardiovascular: Denies: no symptoms, chest pain, edema, irregular heart rate, lightheadedness, palpitations, syncope, other Respiratory: Denies: no symptoms, cough, orthopnea, shortness of breath, SOB with excertion, SOB at rest, sputum, stridor, wheezing, other Gastrointestinal/Abdominal: Denies: no symptoms, abdomen distended, abdominal pain, black stools, tarry stools, blood in stool, constipated, diarrhea, difficulty swallowing, nausea, poor appetite, poor fluid intake, rectal bleeding , vomiting, other Genitourinary: Denies: no symptoms, burning, discharge, frequency, flank pain, hematuria, incontinence, pain, urgency, other Neurologic/Psychiatric: Denies: no symptoms, anxiety, depressed, emotional problems, headache, numbness, paresthesia, pre-existing deficit, seizure, tingling, tremors, weakness, other Endocrine: Denies: no symptoms, excessive sweating, flushing, intolerance to cold, intolerance to heat, increased hunger, increased thirst, increased urine, unexplained weight gain, unexplained weight loss, other Hematologic/Lymphatic: Denies: no symptoms, anemia, easy bleeding, easy bruising, other Allergies: Coded Allergies: No Known Allergies (Unverified , 10/09/18) Subjective Patient seen and examined in ICU. Off dilt ggt on po metoprolol Hr in the 60's feeling well, denies cp, sob, palps blood culture grew E.coli Objective Last 24 Hour Vital Signs Date Time Temp Pulse Resp B/P (MAP) Pulse Ox O2 Delivery O2 Flow Rate FiO2 05/18/19 09:00 65 21 147/52 (83) 100 05/18/19 08:40 67 152/67 05/18/19 08:00 98.3 68 23 152/67 (95) 99 05/18/19 08:00 70 05/18/19 08:00 Nasal Cannula 2.0 05/18/19 07:09 74 21 99 Nasal Cannula 2.0 28 72 17 98 05/18/19 07:00 65 24 153/54 (87) 100 05/18/19 07:00 71 154/79 05/18/19 06:59 98 Nasal Cannula 2.0 28 05/18/19 06:00 62 21 142/59 (86) 99 05/18/19 05:00 67 19 145/58 (87) 98 05/18/19 04:00 98.3 67 18 125/51 (75) 94 05/18/19 04:00 Nasal Cannula 2.0 05/18/19 03:00 67 21 126/48 (74) 93 05/18/19 02:55 64 9/6/19 02:46 60 19 100 Room Air 21 63 19 96 05/18/19 02:00 63 22 153/57 (89) 95 05/18/19 01:00 67 16 135/54 (81) 96 05/18/19 00:00 Nasal Cannula 2.0 05/18/19 00:00 98.6 61 19 147/51 (83) 96 05/17/19 23:33 67 05/17/19 23:30 67 23 112/70 (84) 94 05/17/19 23:04 68 19 143/57 (85) 96 05/17/19 22:38 63 19 99 Nasal Cannula 2.0 28 67 15 97 05/17/19 22:00 67 21 151/57 (88) 99 05/17/19 21:00 63 17 137/58 (84) 97 05/17/19 20:45 62 144/51 05/17/19 20:00 98.6 65 23 139/46 (77) 98 05/17/19 20:00 Nasal Cannula 2.0 05/17/19 19:01 64 05/17/19 19:00 64 20 130/49 (76) 100 05/17/19 18:52 58 20 100 Nasal Cannula 2.0 28 61 19 100 05/17/19 18:52 100 Nasal Cannula 2.0 28 05/17/19 18:30 64 19 132/56 (81) 99 05/17/19 18:00 64 19 161/68 (99) 99 05/17/19 17:30 65 17 152/67 (95) 92 05/17/19 17:00 61 19 125/56 (79) 97 05/17/19 16:30 63 20 120/50 (73) 97 05/17/19 16:00 Nasal Cannula 2.0 05/17/19 16:00 61 05/17/19 16:00 98.5 61 18 113/35 (61) 98 05/17/19 15:30 61 21 114/53 (73) 96 05/17/19 15:01 57 22 100 Room Air 21 58 23 100 05/17/19 15:00 63 22 130/55 (80) 98 05/17/19 14:44 57 18 101/57 (72) 99 05/17/19 14:30 61 24 72/45 (54) 96 05/17/19 14:00 59 19 121/49 (73) 98 05/17/19 13:30 60 20 119/47 (71) 99 05/17/19 13:00 64 19 139/67 (91) 98 05/17/19 12:30 62 19 146/60 (88) 100 05/17/19 12:00 Nasal Cannula 2.0 05/17/19 12:00 58 05/17/19 12:00 97.7 57 24 118/45 (69) 96 05/17/19 11:30 72 20 131/48 (75) 99 05/17/19 11:00 92 20 130/67 (88) 100 05/17/19 10:30 83 23 125/65 (85) 100 Intake and Output 05/17/19 05/18/19 19:00 07:00 Intake Total 1709.0 ml 347.5 ml Balance 1709.0 ml 347.5 ml Intake Oral 300 ml 320 ml IV Total 1409.0 ml 27.5 ml # Voids 4 4 # Bowel Movements 5 3 Laboratory Tests 05/17/19 15:15: Erythrocyte Sedimentation Rate 95H, C-Reactive Protein, Quantitative 12.8H, Rheumatoid Factor Screen 14.1H, Cyclic Citrullinated Peptide IgG Ab [Pending], Anti-Nuclear Antibody Screen [Pending], c-ANCA Titer [Pending], p-ANCA Titer [ Pending], HIV (1&2) Antibody Rapid Negative 05/18/19 03:30: White Blood Count 12.6H, Red Blood Count 3.36L, Hemoglobin 10.7L, Hematocrit 32.0L, Mean Corpuscular Volume 95, Mean Corpuscular Hemoglobin 31.8H, Mean Corpuscular Hemoglobin Concent 33.4, Red Cell Distribution Width 11.9, Platelet Count 118L, Mean Platelet Volume 7.7, Neutrophils (%) (Auto) 72.8, Lymphocytes ( %) (Auto) 13.5L, Monocytes (%) (Auto) 9.5, Eosinophils (%) (Auto) 3.5H, Basophils (%) (Auto) 0.8, Sodium Level 142, Potassium Level 4.6, Chloride Level 110H, Carbon Dioxide Level 22, Anion Gap 10, Blood Urea Nitrogen 25H, Creatinine 1.6H, Estimat Glomerular Filtration Rate , Glucose Level 130H, Calcium Level 8.5, Magnesium Level 2.1 Height (Feet): 5 Height (Inches): 0.00 Weight (Pounds): 127 Objective General Appearance: no apparent distress, alert and oriented, Armenian speaking HEENT: normocephalic, atraumatic Neck: non-tender, normal alignment, supple Respiratory/Chest: chest wall non-tender, lungs clear, normal breath sounds, no respiratory distress, no accessory muscle use Cardiovascular/Chest: normal peripheral pulses, normal rate, regular rhythm, no m/r/g Abdomen: normal bowel sounds, soft, non distended, non tender Extremities: normal range of motion, non-tender, normal inspection, no calf tenderness. no edema Neurologic: applied psychology chair II-XII grossly normal, no motor/sensory deficits Skin: No ulcer or rashes Jim Gabriel M.D. May 18, 2019 10:14
--- NOTE | 2019-05-18 10:19 | CDS Physician Query ---
Clarification is required for compliance, coding accuracy, and to reflect severity of illness for this patient Dear Dr. Jim Gabriel Date: 05/18/2019 Vasc Tech/CDS Name: Estefania Montes Clinical Documentation States: HNP: 88 year old female with history of non obstructive CAD, pulmonary HTN on echocardiogram, HTN, NSTEMI presented with sudden onset SOB, no fever or chills. currently saturating 96% on room air. 05/17 ID note: The patient has gram-negative bacteremia and gram-negative sepsis. The patient has leukocytosis and low-grade fevers. It is unclear of the source this time. Vitals/labs on admission 05/14/2019: Temp 99.3, CT 77, RR 22, WBC 7.4, Bcx E coli Clarification is needed for one (or more) of the following conditions in order to accurately assign the "present on admission' indicator. Please choose the answer that best indicates whether the associated condition was present at the time of the order for inpatient admission. Thank you. Was the Sepsis Present on admission? [] YES [X] NO [] Clinically Undeterminable _Jim Gabriel __05/18/19 Physician signature Date Please also document in your Progress Notes and/or Discharge Summary and indicate if the condition was present on admission. MTDD
--- NOTE | 2019-05-18 10:50 | NUR ---
NURSE NOTES: Pt returned from VQ scan and had an episode of bradycardia to 49 beat per mn during scan and HR remains between 55-59 beat at this time. Dr Gabriel made aware with no new order and continue transfer to [facility].Order noted and carried out.
--- NOTE | 2019-05-18 11:04 | NUR ---
NM Lung V/Q Scan complete.
--- NOTE | 2019-05-18 11:32 | NUR ---
[employer] OFFICER SI: SOB, LEUKOCYTOSIS,ACUTE RENAL FAILURE T. 98.3 HR 68 RR 20 B/P 152/67 2L NC WBC 12.6 BUN 25 CR 1.6 IS: LEVAQUIN IV ASA PO HEPARIN SUBC TELE STATUS
--- NOTE | 2019-05-18 12:16 | NUR ---
NURSE NOTES: Pt had an episode of bowel movement, soft and brown.Good casey-care done, daughter visiting and update given.Awaiting room availability to [facility].HR at 62 at this time.Call light within easy reach.HOB elevated to prevent aspiration.Will continue to monitor.
--- NOTE | 2019-05-18 14:11 | NUR ---
Social Work This SW met with patient in the ICU who speaks primary Urdu. Patient remains alert/oriented x3, while her son, Jose Rincon is her primary decision maker ([phone]). This SW spoke with son who explains patient lives alone and has an [facility] caregiver who provides transportation and assists her as needed (unsure how many hours per week, while explaining patient needs more). Patient alone for quite some time and will need to show independence with ADLs and ambulation when ready for discharge. This SW discussed SNF, as needed with son. Son states patient does not want placement at SNF, but maybe go there for short term only. Patient was ambulatory with cane, according to son. Son explains he works and cannot provide additional assistance (visits patient one or two times per week). Patient also lives on the second floor in her apartment. Pending progress at this time.
--- NOTE | 2019-05-18 14:18 | Diagnostic Imaging Report ---
Indication: Chest pain Technique: A ventilation/perfusion scan was performed. Ventilation was performed utilizing 40 mCi of Technetium 99m-DTPA. Perfusion was performed with 5.5 mCi of technetium 99m-MAA injected intravenously. Multiple side by side projections obtained. Findings: Ventilation is moderately heterogeneous. No significant defects are identified. Perfusion is also moderately heterogeneous. No significant defects are identified. No mismatched defects seen. Impression: Low probability for pulmonary embolus Interpretation of findings are based on PIRADHAD II yessy (2006).
--- NOTE | 2019-05-18 14:40 | NUR ---
NURSE NOTES: Urine specimen collected.Consumed 50% at lunch.Assisted in turning and repositioning.Seen by Dr Mar, will follow up with new orders.
--- NOTE | 2019-05-18 15:01 | Pulmonology Progress Note ---
Assessment/Plan Assessment/Plan Pulmonary Progress Note Critical Care - Asmt/Plan Problems: (1) Pulmonary hypertension (2) CAD (coronary artery disease) (3) HTN (hypertension) (4) Gram-negative bacteremia (5) Paroxysmal atrial fibrillation (6) Renal mass (7) Sepsis due to gram-negative bacteria (8) Thrombocytopenia (9) MIGUELINA (acute kidney injury) Assessment/Plan: PULMONARY HTN: out of proportion to LV function and no h/o known lung disease -VQ to R/O CTEPH -Check serologies -LFT's normal, F/U HIV -Needs OP PFT's and PSG -Consider RHC in the future GRAM NEGATIVE SEPSIS: -Abx (Zosyn) per ID, F/U Cx's -? source pAF --> NSR -Off dilt gtt -Rate control -F/U cards recs -D/C AC - was in AF less than 12 hours and was likely 2/2 hypovolemia and sepsis -D/C Lasix, NS bolus 500 cc Non-Obs CAD: -LHC @ [facility] 10/2018 reviewed -ASA, statin, med management DYSPNEA: -Pulm hygiene -HHN's RENAL MASS: -W/U per MIGUELINA: likely pre-renal from diuresis -D/C lasix, NS 500 cc x 1 -W/U further if not better THROMBOCYTOPENIA: -Likely from sepsis, continue to monitor, w/u further if not better PPx: Hep SQ FC Disposition: transfer to - [facility] Time Spent (Minutes): 40 Notes Reviewed: damage adjuster, cardio, ID, other - Discussed with: nurses, consultants, other - PMD Objective Vital Signs Noted Status: awake, other - NAD Condition: improving HEENT: atraumatic, normocephalic Neck: full ROM Lungs: clear Heart: HR/BP stable Abdomen: soft, non-tender, active bowel sounds Extremities: no C/C/E Micro: Microbiology Date/Time Source Procedure Growth Status 05/14/19 14:45 Blood Blood Culture - Preliminary Gram Negative Bacillus 1 Resulted 05/14/19 14:45 Blood Blood Culture - Preliminary Gram Negative Bacillus 1 Resulted 05/14/19 19:03 Nasal Nares MRSA Culture - Final NO METHICILLIN RESISTANT STAPH AUREUS... Complete 05/16/19 02:00 Stool Clostridium difficile Toxin Assay - Final Complete 05/14/19 19:03 Rectum - Final NO CARBAPENEM-RESISTANT ENTEROBACTERI... Complete 05/14/19 19:00 Rectum VRE Culture - Final NO VANCOMYCIN RESISTANT ENTEROCOCCUS ... Complete Blood Sugars: BS controlled Critical Care - Subjective Interval Events: Transferred for AFcRVR ---> NSR/SB off dilt gtt AFVSS o/w no distress No cough no SOB no CP no FC Condition: critical IV Access: peripheral EKG Rhythm: Sinus Bradycardia FI02: 28 Sputum Amount: None Fluids: SLIV CXR: 05/14/16 CT-A: Impression: Limited exam, as described, due to motion artifact. This precludes confident exclusion of small peripheral emboli No evidence of acute central pulmonary embolus or other acute thoracic vascular pathology Aortic arch plaque Cardiomegaly Pulmonary atelectatic changes Old healed right rib fractures 05/16/19 CT A/P: Impression: Solid-appearing 2.2 cm diameter left renal mass. This is concerning for renal neoplasm. However, the presence of rim and internal calcification raises the possibility that this could represent an inflammatory or postinflammatory lesion. Further evaluation with sonography and/or contrast MRI should be considered. This was discussed in person with Dr. Andre Equivocal slight indistinctness to the left renal margin is infiltration of the perinephric fat, could indicate renal inflammation/infection. Graft there is nonspecific mild ectasia of the bilateral ureters without evidence of downstream obstruction Equivocal mild wall thickening of the gastric antrum, probably artifact of under distention but the possibility of gastritis or peptic ulcer disease should be considered. Cholelithiasis Subcentimeter right lobe liver lesion, too small to characterize. No further follow-up necessar Degenerative spondylosis and scoliotic deformity 05/15/19 TTE: Normal left ventricular chamber size, systolic function and wall motion. Left ventricular ejection fraction estimated to be 60 - 65%. Anterior Echo-free space, may be due to pericardial fat or effusion. All other cardiac chamber sizes are within normal limits. Focal aortic valve sclerosis with adequate cusp excursion. Thickened mitral valve leaflets with normal excursion. Normal pulmonic valve structure. Normal tricuspid valve structure. IVC at normal size with physiologic collapse. A color flow and spectral Doppler study was performed and revealed: Mitral diastolic velocities suggest reduced left ventricular relaxation c/w mild LV diastolic dysfunction (Grade I ). Trace mitral regurgitation. Moderate tricuspid regurgitation. Tricuspid systolic velocities suggests peak right ventricular systolic pressure of 74 mmHg consistent with severe pulmonary hypertension. Mild pulmonic regurgitation present. No aortic regurgitation. 10/14/18 LHC ([facility]) --> non-obstructive CAD Labs: Laboratory Tests Test 05/17/19 03:00 White Blood Count 13.9 K/UL (4.8-10.8) H Red Blood Count 3.48 M/UL (4.20-5.40) L Hemoglobin 11.1 G/DL (12.0-16.0) L Hematocrit 32.6 % (37.0-47.0) L Mean Corpuscular Volume 94 FL (80-99) Mean Corpuscular Hemoglobin 31.8 PG (27.0-31.0) H Mean Corpuscular Hemoglobin Concent 33.9 G/DL (32.0-36.0) Red Cell Distribution Width 11.6 % (11.6-14.8) Platelet Count 93 K/UL (150-450) L Mean Platelet Volume 7.5 FL (6.5-10.1) Neutrophils (%) (Auto) % (45.0-75.0) Lymphocytes (%) (Auto) % (20.0-45.0) Monocytes (%) (Auto) % (1.0-10.0) Eosinophils (%) (Auto) % (0.0-3.0) Basophils (%) (Auto) % (0.0-2.0) Sodium Level 140 MMOL/L (136-145) Potassium Level 3.1 MMOL/L (3.5-5.1) L Chloride Level 106 MMOL/L (98-107) Carbon Dioxide Level 20 MMOL/L (21-32) L Anion Gap 14 mmol/L (5-15) Blood Urea Nitrogen 23 mg/dL (7-18) H Creatinine 1.5 MG/DL (0.55-1.30) H Estimat Glomerular Filtration Rate mL/min (>60) Glucose Level 159 MG/DL (74-106) H Calcium Level 8.6 MG/DL (8.5-10.1) Total Bilirubin 0.8 MG/DL (0.2-1.0) Aspartate Amino Transf (AST/SGOT) 36 U/L (15-37) Alanine Aminotransferase (ALT/SGPT) 35 U/L (12-78) Alkaline Phosphatase 131 U/L (46-116) H Total Protein 6.1 G/DL (6.4-8.2) L Albumin 2.4 G/DL (3.4-5.0) L Globulin 3.7 g/dL Albumin/Globulin Ratio 0.6 (1.0-2.7) L Subjective ROS Limited/Unobtainable: No Allergies: Coded Allergies: No Known Allergies (Unverified , 10/09/18) Objective Last 24 Hour Vital Signs Date Time Temp Pulse Resp B/P (MAP) Pulse Ox O2 Delivery O2 Flow Rate FiO2 05/18/19 12:00 60 05/18/19 12:00 98.2 68 23 152/67 (95) 99 05/18/19 12:00 Nasal Cannula 2.0 05/18/19 11:00 62 23 152/58 (89) 98 05/18/19 10:00 65 20 148/57 (87) 100 05/18/19 09:00 65 21 147/52 (83) 100 05/18/19 08:40 67 152/67 05/18/19 08:00 98.3 68 23 152/67 (95) 99 05/18/19 08:00 70 05/18/19 08:00 Nasal Cannula 2.0 05/18/19 07:09 74 21 99 Nasal Cannula 2.0 28 72 17 98 05/18/19 07:00 65 24 153/54 (87) 100 05/18/19 07:00 71 154/79 05/18/19 06:59 98 Nasal Cannula 2.0 28 05/18/19 06:00 62 21 142/59 (86) 99 05/18/19 05:00 67 19 145/58 (87) 98 05/18/19 04:00 98.3 67 18 125/51 (75) 94 05/18/19 04:00 Nasal Cannula 2.0 05/18/19 03:00 67 21 126/48 (74) 93 05/18/19 02:55 64 05/18/19 02:46 60 19 100 Room Air 21 63 19 96 05/18/19 02:00 63 22 153/57 (89) 95 05/18/19 01:00 67 16 135/54 (81) 96 05/18/19 00:00 Nasal Cannula 2.0 05/18/19 00:00 98.6 61 19 147/51 (83) 96 05/17/19 23:33 67 05/17/19 23:30 67 23 112/70 (84) 94 05/17/19 23:04 68 19 143/57 (85) 96 05/17/19 22:38 63 19 99 Nasal Cannula 2.0 28 67 15 97 05/17/19 22:00 67 21 151/57 (88) 99 05/17/19 21:00 63 17 137/58 (84) 97 05/17/19 20:45 62 144/51 05/17/19 20:00 98.6 65 23 139/46 (77) 98 05/17/19 20:00 Nasal Cannula 2.0 05/17/19 19:01 64 05/17/19 19:00 64 20 130/49 (76) 100 05/17/19 18:52 58 20 100 Nasal Cannula 2.0 28 61 19 100 05/17/19 18:52 100 Nasal Cannula 2.0 28 05/17/19 18:30 64 19 132/56 (81) 99 05/17/19 18:00 64 19 161/68 (99) 99 05/17/19 17:30 65 17 152/67 (95) 92 05/17/19 17:00 61 19 125/56 (79) 97 05/17/19 16:30 63 20 120/50 (73) 97 05/17/19 16:00 Nasal Cannula 2.0 05/17/19 16:00 61 05/17/19 16:00 98.5 61 18 113/35 (61) 98 05/17/19 15:30 61 21 114/53 (73) 96 05/17/19 15:01 57 22 100 Room Air 21 58 23 100 05/17/19 15:00 63 22 130/55 (80) 98 Intake and Output 05/17/19 05/18/19 18:59 06:59 Intake Total 1681.5 ml 347.5 ml Balance 1681.5 ml 347.5 ml Intake Oral 300 ml 320 ml IV Total 1381.5 ml 27.5 ml # Voids 4 4 # Bowel Movements 5 3 Microbiology Date/Time Source Procedure Growth Status 05/16/19 02:00 Stool Clostridium difficile Toxin Assay - Final Complete Laboratory Tests 05/17/19 15:15: Erythrocyte Sedimentation Rate 95H, C-Reactive Protein, Quantitative 12.8H, Rheumatoid Factor Screen 14.1H, Cyclic Citrullinated Peptide IgG Ab [Pending], Anti-Nuclear Antibody Screen [Pending], c-ANCA Titer [Pending], p-ANCA Titer [ Pending], HIV (1&2) Antibody Rapid Negative 05/18/19 03:30: White Blood Count 12.6H, Red Blood Count 3.36L, Hemoglobin 10.7L, Hematocrit 32.0L, Mean Corpuscular Volume 95, Mean Corpuscular Hemoglobin 31.8H, Mean Corpuscular Hemoglobin Concent 33.4, Red Cell Distribution Width 11.9, Platelet Count 118L, Mean Platelet Volume 7.7, Neutrophils (%) (Auto) 72.8, Lymphocytes ( %) (Auto) 13.5L, Monocytes (%) (Auto) 9.5, Eosinophils (%) (Auto) 3.5H, Basophils (%) (Auto) 0.8, Sodium Level 142, Potassium Level 4.6, Chloride Level 110H, Carbon Dioxide Level 22, Anion Gap 10, Blood Urea Nitrogen 25H, Creatinine 1.6H, Estimat Glomerular Filtration Rate , Glucose Level 130H, Calcium Level 8.5, Magnesium Level 2.1 Current Medications Medications (Trade) Dose Ordered Sig/Alex Route PRN Reason Start Time Stop Time Status Last Admin Dose Admin Acetaminophen (Tylenol) 650 mg Q4H PRN ORAL Mild Pain (Pain Scale 1-3) 05/17/19 07:00 06/16/19 06:59 Albuterol/ Ipratropium (Albuterol/ Ipratropium) 3 ml Q4HRT HHN 05/17/19 07:00 05/21/19 10:59 05/18/19 14:51 Aspirin (ASA) 81 mg DAILY ORAL 05/18/19 09:00 06/17/19 08:59 05/18/19 08:40 Atorvastatin Calcium (Lipitor) 10 mg BEDTIME ORAL 05/17/19 21:00 06/14/19 20:59 05/17/19 20:45 Dextrose (Dextrose 50%) 50 ml Q30M PRN IV Hypoglycemia 05/17/19 07:15 06/13/19 18:14 Diltiazem HCl 125 mg/Dextrose 125 ml @ 0 mls/hr Q24H IV 05/17/19 07:00 06/16/19 06:59 05/17/19 08:42 Diphenhydramine HCl (Benadryl) 25 mg Q6H PRN ORAL Itching/Pruritis 05/17/19 07:01 06/16/19 07:00 Heparin Sodium (Porcine) (Heparin 5000 units/ml) 5,000 units EVERY 12 HOURS SUBQ 05/17/19 21:00 06/16/19 20:59 05/18/19 08:44 Hydromorphone HCl (Dilaudid) 0.5 mg Q6H PRN IVP For Pain 05/17/19 07:01 05/24/19 07:00 Metoprolol Tartrate (Lopressor) 25 mg Q12HR ORAL 05/17/19 09:00 06/14/19 20:59 05/18/19 08:40 Nitroglycerin (Ntg) 0.4 mg Q5M PRN SL Prn Chest Pain 05/17/19 07:00 06/13/19 18:14 Ondansetron HCl (Zofran) 4 mg Q6H PRN IVP Nausea & Vomiting 05/17/19 07:01 06/16/19 07:00 Buddy Mcnulty MD May 18, 2019 15:01
--- NOTE | 2019-05-18 15:08 | Infectious Diseases Prog Note ---
Assessment/Plan Assessment/Plan ASSESSMENT AND PLAN: 1. e.coli bacteremia, ? pyelonephritis/uti on CT, sepsis, af with rvr - ciprofloxacin - await final sensitivities for cephalosporins/carbapenems - favor b-lactam abx if sensitive to them - check surveillance blood cultures - monitor labs - d/w Dr. Gabriel - d/w microbiology and pharmacy - icu care 2. Renal mass - Consider Urology evaluation. 3. Anemia. 4. Chronic kidney disease. 5. Elevated creatinine. 6. Hypertension. 7. Pulmonary hypertension. 8. Blood pressure treatment per primary. 9. COPD and asthma. 10. Hypoxia. 11. CAD. 12. History of non-STEMI. 13. No known drug allergies. 14. Social history is negative. 15. Family history is noncontributory. 16. MAR was noted. 17. Case was discussed with RN. 18. Case was discussed with Dr. Gabriel. Subjective Constitutional: Denies: fever Respiratory: Denies: shortness of breath Cardiovascular: Denies: chest pain Gastrointestinal/Abdominal: Denies: nausea, vomiting, diarrhea Genitourinary: Reports: other - no chatman Neurologic: Denies: headache Psychiatric: Denies: depression Skin: Denies: rash Hematologic: Denies: bleeding Musculoskeletal: Denies: pain Allergies: Coded Allergies: No Known Allergies (Unverified , 10/09/18) Objective Vital Signs Last 24 Hour Vital Signs Date Time Temp Pulse Resp B/P (MAP) Pulse Ox O2 Delivery O2 Flow Rate FiO2 05/18/19 12:00 60 05/18/19 12:00 98.2 68 23 152/67 (95) 99 05/18/19 12:00 Nasal Cannula 2.0 05/18/19 11:00 62 23 152/58 (89) 98 05/18/19 10:00 65 20 148/57 (87) 100 05/18/19 09:00 65 21 147/52 (83) 100 05/18/19 08:40 67 152/67 05/18/19 08:00 98.3 68 23 152/67 (95) 99 05/18/19 08:00 70 05/18/19 08:00 Nasal Cannula 2.0 05/18/19 07:09 74 21 99 Nasal Cannula 2.0 28 72 17 98 05/18/19 07:00 65 24 153/54 (87) 100 05/18/19 07:00 71 154/79 05/18/19 06:59 98 Nasal Cannula 2.0 28 05/18/19 06:00 62 21 142/59 (86) 99 05/18/19 05:00 67 19 145/58 (87) 98 05/18/19 04:00 98.3 67 18 125/51 (75) 94 05/18/19 04:00 Nasal Cannula 2.0 05/18/19 03:00 67 21 126/48 (74) 93 05/18/19 02:55 64 05/18/19 02:46 60 19 100 Room Air 21 63 19 96 05/18/19 02:00 63 22 153/57 (89) 95 05/18/19 01:00 67 16 135/54 (81) 96 05/18/19 00:00 Nasal Cannula 2.0 05/18/19 00:00 98.6 61 19 147/51 (83) 96 05/17/19 23:33 67 05/17/19 23:30 67 23 112/70 (84) 94 05/17/19 23:04 68 19 143/57 (85) 96 05/17/19 22:38 63 19 99 Nasal Cannula 2.0 28 67 15 97 05/17/19 22:00 67 21 151/57 (88) 99 05/17/19 21:00 63 17 137/58 (84) 97 05/17/19 20:45 62 144/51 05/17/19 20:00 98.6 65 23 139/46 (77) 98 05/17/19 20:00 Nasal Cannula 2.0 05/17/19 19:01 64 05/17/19 19:00 64 20 130/49 (76) 100 05/17/19 18:52 58 20 100 Nasal Cannula 2.0 28 61 19 100 05/17/19 18:52 100 Nasal Cannula 2.0 28 05/17/19 18:30 64 19 132/56 (81) 99 05/17/19 18:00 64 19 161/68 (99) 99 05/17/19 17:30 65 17 152/67 (95) 92 05/17/19 17:00 61 19 125/56 (79) 97 05/17/19 16:30 63 20 120/50 (73) 97 05/17/19 16:00 Nasal Cannula 2.0 05/17/19 16:00 61 05/17/19 16:00 98.5 61 18 113/35 (61) 98 05/17/19 15:30 61 21 114/53 (73) 96 05/17/19 15:01 57 22 100 Room Air 21 58 23 100 05/17/19 15:00 63 22 130/55 (80) 98 05/17/19 14:44 57 18 101/57 (72) 99 Height (Feet): 5 Height (Inches): 0.00 Weight (Pounds): 127 General Appearance: no acute distress HEENT: normocephalic, atraumatic, anicteric, mucous membranes moist Respiratory/Chest: lungs clear, normal breath sounds, no respiratory distress, no accessory muscle use Cardiovascular: normal rate, regular rhythm, no gallop/murmur, no JVD Abdomen: normal bowel sounds, soft, non tender, no organomegaly, non distended Genitourinary: other - no chatman Extremities: no cyanosis Skin: no rash Neurologic/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 This is concerning for renal neoplasm. However, the presence of rim and internal calcification raises the possibility that this could represent an inflammatory or postinflammatory lesion. Further evaluation with sonography and/or contrast MRI should be considered. This was discussed in person with Dr. Andre Equivocal slight indistinctness to the left renal margin is infiltration of the perinephric fat, could indicate renal inflammation/infection. Graft there is nonspecific mild ectasia of the bilateral ureters without evidence of downstream obstruction Equivocal mild wall thickening of the gastric antrum, probably artifact of under distention but the possibility of gastritis or peptic ulcer disease should be considered. Cholelithiasis Subcentimeter right lobe liver lesion, too small to characterize. No further follow-up necessary Degenerative spondylosis and scoliotic deformity The CT scanner at [facility] is accredited by the [employer] and the scans are performed using protocols designed to limit radiation exposure to as low as reasonably achievable to attain images of sufficient resolution adequate for diagnostic evaluation. Comparison: none Findings: Pulmonary arterial opacification is adequate. There is image degradation due to motion artifact. This particularly limits evaluation in the lower lungs. No definite acute pulmonary emboli, although small peripheral emboli could be missed due to the motion artifact. The main and right pulmonary arteries are dilated, measuring 40 and 32 mm in diameter. There is four-chamber cardiomegaly without specific right ventricular dilatation. No evidence of thoracic aortic aneurysm or dissection. There is thick atherosclerotic plaquing of the aortic arch which narrows the lumen by about 30% diameter. There is normal branching anatomy and caliber of the great neck vessels. The lungs demonstrate posterior atelectatic changes. No definite infiltrates, effusions, masses, or nodules. Assessment of the lungs is somewhat limited due to motion artifact. No pericardial effusion. No mediastinal or hilar mass or adenopathy. Normal- appearing esophagus. There is a small hiatal hernia. No axillary or chest wall mass or adenopathy. The bones demonstrate multiple old healed right rib fracture deformities. The included upper abdominal anatomy is unremarkable. CT chest - Impression: Limited exam, as described, due to motion artifact. This precludes confident exclusion of small peripheral emboli No evidence of acute central pulmonary embolus or other acute thoracic vascular pathology Aortic arch plaque Cardiomegaly Pulmonary atelectatic changes Old healed right rib fractures Microbiology Date/Time Source Procedure Growth Status 05/16/19 02:00 Stool Clostridium difficile Toxin Assay - Final Complete Laboratory Tests Test 05/17/19 15:15 05/18/19 03:30 Erythrocyte Sedimentation Rate 95 MM/HR (0-30) H C-Reactive Protein, Quantitative 12.8 mg/dL (0.00-0.90) H Rheumatoid Factor Screen 14.1 IU/mL (0.0-13.9) H Cyclic Citrullinated Peptide IgG Ab Pending Anti-Nuclear Antibody Screen Pending c-ANCA Titer Pending p-ANCA Titer Pending HIV (1&2) Antibody Rapid Negative (NEGATIVE) White Blood Count 12.6 K/UL (4.8-10.8) H Red Blood Count 3.36 M/UL (4.20-5.40) L Hemoglobin 10.7 G/DL (12.0-16.0) L Hematocrit 32.0 % (37.0-47.0) L Mean Corpuscular Volume 95 FL (80-99) Mean Corpuscular Hemoglobin 31.8 PG (27.0-31.0) H Mean Corpuscular Hemoglobin Concent 33.4 G/DL (32.0-36.0) Red Cell Distribution Width 11.9 % (11.6-14.8) Platelet Count 118 K/UL (150-450) L Mean Platelet Volume 7.7 FL (6.5-10.1) Neutrophils (%) (Auto) 72.8 % (45.0-75.0) Lymphocytes (%) (Auto) 13.5 % (20.0-45.0) L Monocytes (%) (Auto) 9.5 % (1.0-10.0) Eosinophils (%) (Auto) 3.5 % (0.0-3.0) H Basophils (%) (Auto) 0.8 % (0.0-2.0) Sodium Level 142 MMOL/L (136-145) Potassium Level 4.6 MMOL/L (3.5-5.1) Chloride Level 110 MMOL/L (98-107) H Carbon Dioxide Level 22 MMOL/L (21-32) Anion Gap 10 mmol/L (5-15) Blood Urea Nitrogen 25 mg/dL (7-18) H Creatinine 1.6 MG/DL (0.55-1.30) H Estimat Glomerular Filtration Rate mL/min (>60) Glucose Level 130 MG/DL (74-106) H Calcium Level 8.5 MG/DL (8.5-10.1) Magnesium Level 2.1 MG/DL (1.8-2.4) Current Medications Medications (Trade) Dose Ordered Sig/Alex Route PRN Reason Start Time Stop Time Status Last Admin Dose Admin Acetaminophen (Tylenol) 650 mg Q4H PRN ORAL Mild Pain (Pain Scale 1-3) 05/17/19 07:00 06/16/19 06:59 Albuterol/ Ipratropium (Albuterol/ Ipratropium) 3 ml Q4HRT HHN 05/17/19 07:00 05/21/19 10:59 05/18/19 06:59 Aspirin (ASA) 81 mg DAILY ORAL 05/18/19 09:00 06/17/19 08:59 05/18/19 08:40 Atorvastatin Calcium (Lipitor) 10 mg BEDTIME ORAL 05/17/19 21:00 06/14/19 20:59 05/17/19 20:45 Dextrose (Dextrose 50%) 50 ml Q30M PRN IV Hypoglycemia 05/17/19 07:15 06/13/19 18:14 Diltiazem HCl 125 mg/Dextrose 125 ml @ 0 mls/hr Q24H IV 05/17/19 07:00 06/16/19 06:59 05/17/19 08:42 Diphenhydramine HCl (Benadryl) 25 mg Q6H PRN ORAL Itching/Pruritis 05/17/19 07:01 06/16/19 07:00 Heparin Sodium (Porcine) (Heparin 5000 units/ml) 5,000 units EVERY 12 HOURS SUBQ 05/17/19 21:00 06/16/19 20:59 05/18/19 08:44 Hydromorphone HCl (Dilaudid) 0.5 mg Q6H PRN IVP For Pain 05/17/19 07:01 05/24/19 07:00 Levofloxacin 50 ml @ 50 mls/hr Q48H IVPB 05/20/19 09:00 05/27/19 08:59 Metoprolol Tartrate (Lopressor) 25 mg Q12HR ORAL 05/17/19 09:00 06/14/19 20:59 05/18/19 08:40 Nitroglycerin (Ntg) 0.4 mg Q5M PRN SL Prn Chest Pain 05/17/19 07:00 06/13/19 18:14 Ondansetron HCl (Zofran) 4 mg Q6H PRN IVP Nausea & Vomiting 05/17/19 07:01 06/16/19 07:00 Monica Perez MD May 18, 2019 15:08
--- NOTE | 2019-05-18 15:08 | NUR ---
NURSE NOTES: Report given to [facility].Pt transferred to [facility] Room 236. Endorsed follow up for new order given by Dr Mar.All belongings verified and return to MITCH Bon[facility]. Addendum: 05/18/19 at 1555 by Kimmy Glaser RN VQ scan result with low probability PE, endorsed to next nurse
--- NOTE | 2019-05-18 15:09 | NUR ---
NURSE NOTES: Received patient from MITCH Oneal. Patient blood pressure 120/66, Temp 97.5, HR 68, SpO2 97%, and RR 19. Patient denies pain at this time. Patient lying in bed at 15 degree angle. Patient appears comfortable. Patient on Room air at this time with nasal cannula at the bedside. Patient is alert and oriented to person, place, and time but confused to purpose. Patient wolof speaking but understands some Tajik. Bruises noted on bilateral upper extremities. Peripheral IV noted on right wrist 22 gauge and right forearm 20 gauge. Patient cleaned at this time. Patient has redness noted on the perineal area. In and out catheter used with aseptic technique to obtain urine culture as patient is incontinent of urine and bowel at this time. Patient Bed in low position with bed alarm on and call light in reach. Will continue to monitor. Patient transferred to ICU for new onset A. fib and RVR. HR stable in sinus rhythm at 68 beats per minute at this time. Will continue to monitor.
[2019-05-18] MEDS ORDERED: Nitroglycerin Subl 0.4mg tab SL PRN (16:00)
--- NOTE | 2019-05-18 17:26 | NUR ---
NURSE NOTES: Patient's daughter Sandra notified that patient has been moved from ICU to room 236 bed 1.
[2019-05-18] MEDS ORDERED: Hydromorphone 0.5mg/0.5ml inj IVP PRN (19:15)
--- NOTE | 2019-05-18 19:23 | NUR ---
HAND-OFF: Report given to MITCH Khan. Patient VS stable at this time with no sign of acute distress. Endorsed to monitor and follow up.
--- NOTE | 2019-05-18 19:25 | NUR ---
NURSE NOTES: received pt from Irene MEYER., pt is awake and resting on the Bed AOx 3. no dysrhythmia reported from last shift. no SOB and no respiratory distress noted at this moment. call light within reach. side rails x3 up. Malay speaker, no pain at this moment. IV Right wrist 22 G and Right FA 20G intact and patent. will continue with plan of care.
[2019-05-19] VITALS: BP 144/68
[2019-05-19] MEDS: Albuterol/Ipratropium 3ml neb HHN SCH ×6 (03:00→23:05)
[2019-05-19 04:00] VITALS: BP 104/57
[2019-05-19 04:57] LABS: BASOPHILS % (AUTO) 0.6 % (0.0-2.0); EOSINOPHILS % (AUTO) 1.2 % (0.0-3.0); LYMPHOCYTES % (AUTO) 7.6 % (20.0-45.0); MEAN CORPUSCULAR VOLUME 95 FL (80-99); MONOCYTES % (AUTO) 9.7 % (1.0-10.0); NEUTROPHILS % (AUTO) 80.8 % (45.0-75.0); PLATELET COUNT 148 K/UL (150-450); RED BLOOD COUNT 3.49 M/UL (4.20-5.40); RED CELL DISTRIBUTION WIDTH 11.8 % (11.6-14.8); WHITE BLOOD COUNT 14.3 K/UL (4.8-10.8)
[2019-05-19 05:49] LABS: ALANINE AMINOTRANSFERASE 57 U/L (12-78); ALBUMIN 2.5 G/DL (3.4-5.0); ALBUMIN/GLOBULIN RATIO 0.6 (1.0-2.7); ALKALINE PHOSPHATASE 272 U/L (46-116); ANION GAP 13 mmol/L (5-15); ASPARTATE AMINO TRANSFERASE 76 U/L (15-37); BILIRUBIN,TOTAL 1.1 MG/DL (0.2-1.0); BLOOD UREA NITROGEN 21 mg/dL (7-18); CARBON DIOXIDE 21 MMOL/L (21-32); CHLORIDE 106 MMOL/L (98-107); CREATININE 1.3 MG/DL (0.55-1.30); POTASSIUM 4.4 MMOL/L (3.5-5.1); SODIUM 140 MMOL/L (136-145)
[2019-05-19 06:09] LABS: BILIRUBIN,DIRECT 0.4 MG/DL (0.0-0.3)
--- NOTE | 2019-05-19 07:36 | NUR ---
HAND-OFF: Report given to NAZANIN MEYER.pt is resting on the bed no signs of SOB and no signs of respiratory distress.
--- NOTE | 2019-05-19 07:45 | NUR ---
NURSE NOTES: Received change of shift report from Anuradha MEYER. Pt is asleep, awakens to name/voice, oriented x3, Wolof speaking and able to communicate basic Yi. Pt is on room air with O2sat at 98%. Bilateral diminished yet clear lung sounds. Tele monitor is on pt, displaying NSR with heart rate currently in the 60's. Bilateral weak pulses on palpation. Abdomen is large, round, soft/nontender to touch with active bowel sounds. Peripheral IV access is present on right wrist #22G and left FA #20G, both saline locks, patent/intact. Skin is intact. Bed is locked in lowest position, with three side rails up, HOB in semi-ingram's position and call light within easy reach. Will continue to monitor pt and follow plan of care per MD orders and protocol.
[2019-05-19 08:00] VITALS: BP 119/64
[2019-05-19] MEDS ORDERED: Aspirin Baby 81mg ORAL SCH (09:00)
[2019-05-19] MEDS: Metoprolol 25mg tab ORAL SCH ×2 (09:47→21:01)
[2019-05-19] MEDS: Heparin 5000 units/ml inj SUBQ SCH ×2 (09:49→21:02)
--- NOTE | 2019-05-19 10:00 | NUR ---
NURSE NOTES: AM meds were administered. VS stable. Pt is sitting up in bed watching TV. Denies any pain or discomfort.
[2019-05-19 12:00] VITALS: BP 101/59
--- NOTE | 2019-05-19 12:03 | NUR ---
NURSE NOTES: Order has been receiving to transfer pt to Tele per Dr Gabriel. Also pt was seen earlier today by Dr Reyes and per MD worrell to transfer pt to Tele. Charge nurse was also notified. Order in place and awaiting for room/bed availability.
[2019-05-19] MEDS ORDERED: cefTRIAXone 1 GM in D5W 50 ML IVPB SCH (13:00)
--- NOTE | 2019-05-19 13:00 | NUR ---
NURSE NOTES: Pt has been cleaned and changed, gown/linens changed. Pt is able to reposition self, assisted pt with repositioning with lower extremities elevated on pillows. VS stable.
--- NOTE | 2019-05-19 14:08 | General Progress Note ---
Assessment/Plan Problem List: (1) Pulmonary hypertension ICD Codes: I27.20 - Pulmonary hypertension, unspecified SNOMED: 81158078 (2) HTN (hypertension) ICD Codes: I10 - Essential (primary) hypertension SNOMED: 85358703 (3) CAD (coronary artery disease) ICD Codes: I25.10 - Atherosclerotic heart disease of [place] coronary artery without angina pectoris SNOMED: 72795230 (4) Shortness of breath ICD Codes: R06.02 - Shortness of breath SNOMED: 708020334 (5) Atrial fibrillation with RVR ICD Codes: I48.91 - Unspecified atrial fibrillation SNOMED: 122794119869713 (6) MIGUELINA (acute kidney injury) ICD Codes: N17.9 - Acute kidney failure, unspecified SNOMED: 5416673, 50744143 (7) Sepsis due to gram-negative bacteria ICD Codes: A41.50 - Gram-negative sepsis, unspecified SNOMED: 227225021 (8) Microhematuria ICD Codes: R31.29 - Other microscopic hematuria SNOMED: 121425611 (9) Renal mass ICD Codes: N28.89 - Other specified disorders of kidney and ureter SNOMED: 558555966 (10) Thrombocytopenia ICD Codes: D69.6 - Thrombocytopenia, unspecified SNOMED: 654732654 (11) Hypoxia ICD Codes: R09.02 - Hypoxemia SNOMED: 662940215 (12) E coli bacteremia ICD Codes: R78.81 - Bacteremia SNOMED: 937739466080 Status: stable, progressing - much improved Assessment/Plan: 88 year old female with history of non obstructive CAD, pulmonary HTN on echocardiogram, HTN, NSTEMI presented with sudden onset SOB, no fever or chills or abdominal pain. Admitted to step down for Acute hypoxic respiratory failure. Found to have sepsis with gram negative bacteremia. She was started on diuresis wit furosemide to lower filling and pulmonary pressures, developed Afib with rvr and transferred to ICU and stared on dilt ggt. Converted to sinus rhythm. Now off dilt ggt and NSR in 60's, transferred to stepdown on 05/18/19 1. Acute hypoxic respiratory failure- resolved. Now with E.Coli sepsis and bacteremia (multiple bottles). ID on board. s/p Amikacin. Receiving Zosyn. Sensitivities reviewed. Resistant to Zosyn. Started Lefloxacin renal dosed (500 q24hr) when sensitivites were limited. Now switched to ceftriaxone. Discussed with ID. 2. pAF, converted to NSR. Off dilt ggt. Continue rate control with metoprolol. Follow up cards recs. AF less than 12hours, will hold off on anticoagulation for now. Since patient has sepsis and hypovolemic s/p diuresis, s/p bolus 500 ml NS on 05/17. Discussed with [place] taper helper, Dr. Hdez. Hold off diuresis and IVF. 3. Severe pulmonary hypertension per echo, no history of lung disease. Pulmonary consult appreciated. V/Q to r/o CTEPH: Ventilation is moderately heterogeneous. No significant defects are identified. Perfusion is also moderately heterogeneous. No significant defects are identified. No mismatched defects seen. serologies (ASHLEY , RF, HIV). Needs outpatient PFTs and PSG. RHC in the future. ASHLEY negative, HIV negative. 4. Non obstructive CAD. History of NSTEMI. left heart cath 10/2018 [facility]. Cardiology on board. Continue ASA, statin, metoprolol and nitroglycerin as needed. 5. MIGUELINA vs MIGUELINA on CKD. Likely from IV contrast and diuresis. Discontinued furosemide on 05/17. Avoid nephrotoxic medications. if no improvement, nephrology consult. CR is imprving, 1.3 today 6. Thrombocytopenia. Likely from sepsis. Time line does not fit HIT. 4Ts score: 1. Will monitor plt count and if not better further work up. continue dvt ppx with hep sq. Platelet count has increased to 148 today. 7. Renal mass vs inflammation. urology consult. f/u recs. Watch for now. No acute intervention Diet: cardiac Code: full code Disposition: Downgrade to telemetry I spent 40 minutes on this encounter. 50% spent on counseling and care coordination. I discussed the case extensively with daughter Julissa on the phone. Time of this note may not reflect time of encounter Subjective Date patient seen: May 19, 2019 ROS Limited/Unobtainable: No HEENT: Denies: no symptoms, eye pain, blurred vision, tearing, double vision, ear pain, ear discharge, nose pain, nose congestion, throat pain, throat swelling, mouth pain, mouth swelling, other Cardiovascular: Denies: no symptoms, chest pain, edema, irregular heart rate, lightheadedness, palpitations, syncope, other Respiratory: Denies: no symptoms, cough, orthopnea, shortness of breath, SOB with excertion, SOB at rest, sputum, stridor, wheezing, other Gastrointestinal/Abdominal: Denies: no symptoms, abdomen distended, abdominal pain, black stools, tarry stools, blood in stool, constipated, diarrhea, difficulty swallowing, nausea, poor appetite, poor fluid intake, rectal bleeding , vomiting, other Genitourinary: Denies: no symptoms, burning, discharge, frequency, flank pain, hematuria, incontinence, pain, urgency, other Neurologic/Psychiatric: Denies: no symptoms, anxiety, depressed, emotional problems, headache, numbness, paresthesia, pre-existing deficit, seizure, tingling, tremors, weakness, other Endocrine: Denies: no symptoms, excessive sweating, flushing, intolerance to cold, intolerance to heat, increased hunger, increased thirst, increased urine, unexplained weight gain, unexplained weight loss, other Hematologic/Lymphatic: Denies: no symptoms, anemia, easy bleeding, easy bruising, other Allergies: Coded Allergies: No Known Allergies (Unverified , 10/09/18) Subjective Patient seen and examined in step down. Eating breakfast. in good spirits . Off dilt ggt on po metoprolol feeling well, denies cp, sob, palps blood culture grew E.coli sensitive to ceftriaxone Objective Last 24 Hour Vital Signs Date Time Temp Pulse Resp B/P (MAP) Pulse Ox O2 Delivery O2 Flow Rate FiO2 05/19/19 10:51 65 18 100 Room Air 21 64 18 98 05/19/19 09:47 61 119/64 05/19/19 08:00 Room Air 05/19/19 08:00 99.6 61 18 119/64 (82) 97 05/19/19 08:00 69 05/19/19 07:03 99 Room Air 21 05/19/19 04:00 Room Air 05/19/19 04:00 98.6 75 17 104/57 (73) 95 05/19/19 04:00 72 05/19/19 00:00 97.5 75 17 144/68 (93) 95 05/19/19 00:00 Room Air 05/18/19 23:54 77 05/18/19 23:22 63 18 100 05/18/19 20:57 64 154/69 05/18/19 20:06 98.2 64 18 154/69 (97) 100 05/18/19 20:00 Room Air 05/18/19 20:00 66 05/18/19 19:59 100 Room Air 21 05/18/19 19:58 64 18 100 Room Air 21 60 18 100 05/18/19 16:00 97.5 68 18 120/66 (84) 97 05/18/19 16:00 Room Air 05/18/19 16:00 68 120/66 05/18/19 16:00 68 05/18/19 15:00 58 18 151/59 (89) 99 05/18/19 15:00 62 23 152/58 (89) 98 05/18/19 14:59 64 19 100 Room Air 21 54 25 96 Intake and Output 05/18/19 05/19/19 18:59 06:59 Intake Total 1120.0 ml 200 ml Balance 1120.0 ml 200 ml Intake Oral 810 ml 100 ml IV Total 310.0 ml 100 ml # Voids 3 4 # Bowel Movements 2 1 Laboratory Tests 05/18/19 16:30: Urine Random Sodium 122H, Urine Creatinine 43.0, Urine Potassium Timed 33 05/19/19 03:40: White Blood Count 14.3H, Red Blood Count 3.49L, Hemoglobin 11.0L, Hematocrit 33.0L, Mean Corpuscular Volume 95, Mean Corpuscular Hemoglobin 31.6H, Mean Corpuscular Hemoglobin Concent 33.4, Red Cell Distribution Width 11.8, Platelet Count 148L, Mean Platelet Volume 7.6, Neutrophils (%) (Auto) 80.8H, Lymphocytes (%) (Auto) 7.6L, Monocytes (%) (Auto) 9.7, Eosinophils (%) (Auto) 1.2, Basophils (%) (Auto) 0.6, Sodium Level 140, Potassium Level 4.4, Chloride Level 106, Carbon Dioxide Level 21, Anion Gap 13, Blood Urea Nitrogen 21H, Creatinine 1.3, Estimat Glomerular Filtration Rate , Glucose Level 140H, Calcium Level 9.0 , Total Bilirubin 1.1H, Direct Bilirubin 0.4H, Aspartate Amino Transf (AST/SGOT ) 76H, Alanine Aminotransferase (ALT/SGPT) 57, Alkaline Phosphatase 272H, Total Protein 6.6, Albumin 2.5L, Globulin 4.1, Albumin/Globulin Ratio 0.6L Height (Feet): 5 Height (Inches): 0.00 Weight (Pounds): 129 Objective General Appearance: no apparent distress, alert and oriented, Yakut speaking HEENT: normocephalic, atraumatic Neck: non-tender, normal alignment, supple Respiratory/Chest: chest wall non-tender, lungs clear, normal breath sounds, no respiratory distress, no accessory muscle use Cardiovascular/Chest: normal peripheral pulses, normal rate, regular rhythm, no m/r/g Abdomen: normal bowel sounds, soft, non distended, non tender Extremities: normal range of motion, non-tender, normal inspection, no calf tenderness. 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 May 19, 2019 14:08
--- NOTE | 2019-05-19 14:49 | Cardiology Progress Note ---
Assessment/Plan Status: stable Assessment/Plan Assessment/Plan Status: stable Assessment/Plan: Assessment Shortness of breath Chest pain NSTEMI Elevated troponin Hypertension Pulmonary hypertension Diastolic dysfunction Plan Chest pain/Elevated troponin Cath at [facility] early this year non obstructive CAD Elevated troponin multifactorial EKG no ischemia Likely microvascular ischemia and diastolic dysfunction Echocardiogram reviewed - severe pulmonary hypertension Hold diuresis Pulmonary hypertension V/Q scan per pulmonary Atrial fibrillation -resolved -continue metoprolol -Continue telemetry -Anticoagulation deferred given short lasting MIGUELINA -hold diuresis -IV fluids -Renal ultrasound -Urine electrolytes Subjective Cardiovascular: Reports: no symptoms Respiratory: Reports: no symptoms Gastrointestinal/Abdominal: Reports: no symptoms Genitourinary: Reports: no symptoms Subjective Patient stable in PCU, heart rate normal, V/Q scan negative WBC remains elevated , vitals stable no CP/SOB Objective Last 24 Hour Vital Signs Date Time Temp Pulse Resp B/P (MAP) Pulse Ox O2 Delivery O2 Flow Rate FiO2 05/19/19 10:51 65 18 100 Room Air 21 64 18 98 05/19/19 09:47 61 119/64 05/19/19 08:00 Room Air 05/19/19 08:00 99.6 61 18 119/64 (82) 97 05/19/19 08:00 69 05/19/19 07:03 99 Room Air 21 05/19/19 04:00 Room Air 05/19/19 04:00 98.6 75 17 104/57 (73) 95 05/19/19 04:00 72 05/19/19 00:00 97.5 75 17 144/68 (93) 95 05/19/19 00:00 Room Air 05/18/19 23:54 77 05/18/19 23:22 63 18 100 05/18/19 20:57 64 154/69 05/18/19 20:06 98.2 64 18 154/69 (97) 100 05/18/19 20:00 Room Air 05/18/19 20:00 66 05/18/19 19:59 100 Room Air 21 05/18/19 19:58 64 18 100 Room Air 21 60 18 100 05/18/19 16:00 97.5 68 18 120/66 (84) 97 05/18/19 16:00 Room Air 05/18/19 16:00 68 120/66 05/18/19 16:00 68 05/18/19 15:00 58 18 151/59 (89) 99 05/18/19 15:00 62 23 152/58 (89) 98 05/18/19 14:59 64 19 100 Room Air 21 54 25 96 General Appearance: no apparent distress, alert EENT: PERRL/EOMI, normal ENT inspection Neck: non-tender, normal alignment, supple, normal inspection, no JVD Rhythm: NSR Cardiovascular: normal peripheral pulses, normal rate, regular rhythm Respiratory/Chest: chest wall non-tender, lungs clear, normal breath sounds, no respiratory distress, no accessory muscle use, respiratory distress Abdomen: normal bowel sounds, non tender, soft, no organomegaly, no mass Extremities: normal range of motion, non-tender 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 normal, no motor/sensory deficits Intake and Output 05/18/19 05/19/19 18:59 06:59 Intake Total 1120.0 ml 200 ml Balance 1120.0 ml 200 ml Intake Oral 810 ml 100 ml IV Total 310.0 ml 100 ml # Voids 3 4 # Bowel Movements 2 1 Laboratory Tests Test 05/18/19 16:30 05/19/19 03:40 Urine Random Sodium 122 mmol/L (20-110) H Urine Creatinine 43.0 MG/DL (30.0-125.0) Urine Potassium Timed 33 mmol/L (12-62) White Blood Count 14.3 K/UL (4.8-10.8) H Red Blood Count 3.49 M/UL (4.20-5.40) L Hemoglobin 11.0 G/DL (12.0-16.0) L Hematocrit 33.0 % (37.0-47.0) L Mean Corpuscular Volume 95 FL (80-99) Mean Corpuscular Hemoglobin 31.6 PG (27.0-31.0) H Mean Corpuscular Hemoglobin Concent 33.4 G/DL (32.0-36.0) Red Cell Distribution Width 11.8 % (11.6-14.8) Platelet Count 148 K/UL (150-450) L Mean Platelet Volume 7.6 FL (6.5-10.1) Neutrophils (%) (Auto) 80.8 % (45.0-75.0) H Lymphocytes (%) (Auto) 7.6 % (20.0-45.0) L Monocytes (%) (Auto) 9.7 % (1.0-10.0) Eosinophils (%) (Auto) 1.2 % (0.0-3.0) Basophils (%) (Auto) 0.6 % (0.0-2.0) Sodium Level 140 MMOL/L (136-145) Potassium Level 4.4 MMOL/L (3.5-5.1) Chloride Level 106 MMOL/L (98-107) Carbon Dioxide Level 21 MMOL/L (21-32) Anion Gap 13 mmol/L (5-15) Blood Urea Nitrogen 21 mg/dL (7-18) H Creatinine 1.3 MG/DL (0.55-1.30) Estimat Glomerular Filtration Rate mL/min (>60) Glucose Level 140 MG/DL (74-106) H Calcium Level 9.0 MG/DL (8.5-10.1) Total Bilirubin 1.1 MG/DL (0.2-1.0) H Direct Bilirubin 0.4 MG/DL (0.0-0.3) H Aspartate Amino Transf (AST/SGOT) 76 U/L (15-37) H Alanine Aminotransferase (ALT/SGPT) 57 U/L (12-78) Alkaline Phosphatase 272 U/L (46-116) H Total Protein 6.6 G/DL (6.4-8.2) Albumin 2.5 G/DL (3.4-5.0) L Globulin 4.1 g/dL Albumin/Globulin Ratio 0.6 (1.0-2.7) L Buddy Reyes MD May 19, 2019 14:49
[2019-05-19] MEDS ORDERED: Tubing IV Secondary IV ONE ×2 (15:10→15:13)
[2019-05-19] MEDS ORDERED: NS 275ml ONE ×2 (15:10→15:13)
--- NOTE | 2019-05-19 15:13 | Pulmonology Progress Note ---
Assessment/Plan Assessment/Plan Pulmonary Progress Note Critical Care - Asmt/Plan Problems: (1) Pulmonary hypertension (2) CAD (coronary artery disease) (3) HTN (hypertension) (4) Gram-negative bacteremia (5) Paroxysmal atrial fibrillation (6) Renal mass (7) Sepsis due to gram-negative bacteria (8) Thrombocytopenia (9) MIGUELINA (acute kidney injury) Assessment/Plan: PULMONARY HTN: out of proportion to LV function and no h/o known lung disease -VQ to R/O CTEPH -Check serologies -LFT's normal, F/U HIV -Needs OP PFT's and PSG -Consider RHC in the future GRAM NEGATIVE SEPSIS: -Abx (Zosyn) per ID, F/U Cx's -? source pAF --> NSR -Off dilt gtt -Rate control -F/U cards recs -D/C AC - was in AF less than 12 hours and was likely 2/2 hypovolemia and sepsis -D/C Lasix, NS bolus 500 cc Non-Obs CAD: -LHC @ [facility] 10/2018 reviewed -ASA, statin, med management DYSPNEA: -Pulm hygiene -HHN's RENAL MASS: -W/U per MIGUELINA: likely pre-renal from diuresis -D/C lasix, NS 500 cc x 1 -W/U further if not better THROMBOCYTOPENIA: -Likely from sepsis, continue to monitor, w/u further if not better PPx: Hep SQ FC Disposition: transfer to - [facility] Time Spent (Minutes): 40 Notes Reviewed: children's choir director, cardio, ID, other - Discussed with: nurses, consultants, other - PMD Objective Vital Signs Noted Status: awake, other - NAD Condition: improving HEENT: atraumatic, normocephalic Neck: full ROM Lungs: clear Heart: HR/BP stable Abdomen: soft, non-tender, active bowel sounds Extremities: no C/C/E Micro: Microbiology Date/Time Source Procedure Growth Status 05/14/19 14:45 Blood Blood Culture - Preliminary Gram Negative Bacillus 1 Resulted 05/14/19 14:45 Blood Blood Culture - Preliminary Gram Negative Bacillus 1 Resulted 05/14/19 19:03 Nasal Nares MRSA Culture - Final NO METHICILLIN RESISTANT STAPH AUREUS... Complete 05/16/19 02:00 Stool Clostridium difficile Toxin Assay - Final Complete 05/14/19 19:03 Rectum - Final NO CARBAPENEM-RESISTANT ENTEROBACTERI... Complete 05/14/19 19:00 Rectum VRE Culture - Final NO VANCOMYCIN RESISTANT ENTEROCOCCUS ... Complete Blood Sugars: BS controlled Critical Care - Subjective Interval Events: Transferred for AFcRVR ---> NSR/SB off dilt gtt AFVSS o/w no distress No cough no SOB no CP no FC Condition: critical IV Access: peripheral EKG Rhythm: Sinus Bradycardia FI02: 28 Sputum Amount: None Fluids: SLIV CXR: 05/14/16 CT-A: Impression: Limited exam, as described, due to motion artifact. This precludes confident exclusion of small peripheral emboli No evidence of acute central pulmonary embolus or other acute thoracic vascular pathology Aortic arch plaque Cardiomegaly Pulmonary atelectatic changes Old healed right rib fractures 05/16/19 CT A/P: Impression: Solid-appearing 2.2 cm diameter left renal mass. This is concerning for renal neoplasm. However, the presence of rim and internal calcification raises the possibility that this could represent an inflammatory or postinflammatory lesion. Further evaluation with sonography and/or contrast MRI should be considered. This was discussed in person with Dr. Andre Equivocal slight indistinctness to the left renal margin is infiltration of the perinephric fat, could indicate renal inflammation/infection. Graft there is nonspecific mild ectasia of the bilateral ureters without evidence of downstream obstruction Equivocal mild wall thickening of the gastric antrum, probably artifact of under distention but the possibility of gastritis or peptic ulcer disease should be considered. Cholelithiasis Subcentimeter right lobe liver lesion, too small to characterize. No further follow-up necessar Degenerative spondylosis and scoliotic deformity 05/15/19 TTE: Normal left ventricular chamber size, systolic function and wall motion. Left ventricular ejection fraction estimated to be 60 - 65%. Anterior Echo-free space, may be due to pericardial fat or effusion. All other cardiac chamber sizes are within normal limits. Focal aortic valve sclerosis with adequate cusp excursion. Thickened mitral valve leaflets with normal excursion. Normal pulmonic valve structure. Normal tricuspid valve structure. IVC at normal size with physiologic collapse. A color flow and spectral Doppler study was performed and revealed: Mitral diastolic velocities suggest reduced left ventricular relaxation c/w mild LV diastolic dysfunction (Grade I ). Trace mitral regurgitation. Moderate tricuspid regurgitation. Tricuspid systolic velocities suggests peak right ventricular systolic pressure of 74 mmHg consistent with severe pulmonary hypertension. Mild pulmonic regurgitation present. No aortic regurgitation. 10/14/18 LHC ([facility]) --> non-obstructive CAD Labs: Laboratory Tests Test 05/17/19 03:00 White Blood Count 13.9 K/UL (4.8-10.8) H Red Blood Count 3.48 M/UL (4.20-5.40) L Hemoglobin 11.1 G/DL (12.0-16.0) L Hematocrit 32.6 % (37.0-47.0) L Mean Corpuscular Volume 94 FL (80-99) Mean Corpuscular Hemoglobin 31.8 PG (27.0-31.0) H Mean Corpuscular Hemoglobin Concent 33.9 G/DL (32.0-36.0) Red Cell Distribution Width 11.6 % (11.6-14.8) Platelet Count 93 K/UL (150-450) L Mean Platelet Volume 7.5 FL (6.5-10.1) Neutrophils (%) (Auto) % (45.0-75.0) Lymphocytes (%) (Auto) % (20.0-45.0) Monocytes (%) (Auto) % (1.0-10.0) Eosinophils (%) (Auto) % (0.0-3.0) Basophils (%) (Auto) % (0.0-2.0) Sodium Level 140 MMOL/L (136-145) Potassium Level 3.1 MMOL/L (3.5-5.1) L Chloride Level 106 MMOL/L (98-107) Carbon Dioxide Level 20 MMOL/L (21-32) L Anion Gap 14 mmol/L (5-15) Blood Urea Nitrogen 23 mg/dL (7-18) H Creatinine 1.5 MG/DL (0.55-1.30) H Estimat Glomerular Filtration Rate mL/min (>60) Glucose Level 159 MG/DL (74-106) H Calcium Level 8.6 MG/DL (8.5-10.1) Total Bilirubin 0.8 MG/DL (0.2-1.0) Aspartate Amino Transf (AST/SGOT) 36 U/L (15-37) Alanine Aminotransferase (ALT/SGPT) 35 U/L (12-78) Alkaline Phosphatase 131 U/L (46-116) H Total Protein 6.1 G/DL (6.4-8.2) L Albumin 2.4 G/DL (3.4-5.0) L Globulin 3.7 g/dL Albumin/Globulin Ratio 0.6 (1.0-2.7) L Subjective ROS Limited/Unobtainable: No Allergies: Coded Allergies: No Known Allergies (Unverified , 10/09/18) Objective Last 24 Hour Vital Signs Date Time Temp Pulse Resp B/P (MAP) Pulse Ox O2 Delivery O2 Flow Rate FiO2 05/19/19 15:00 66 18 100 Room Air 21 63 18 96 05/19/19 10:51 65 18 100 Room Air 21 64 18 98 05/19/19 09:47 61 119/64 05/19/19 08:00 Room Air 05/19/19 08:00 99.6 61 18 119/64 (82) 97 05/19/19 08:00 69 05/19/19 07:03 99 Room Air 21 05/19/19 04:00 Room Air 05/19/19 04:00 98.6 75 17 104/57 (73) 95 05/19/19 04:00 72 05/19/19 00:00 97.5 75 17 144/68 (93) 95 05/19/19 00:00 Room Air 05/18/19 23:54 77 05/18/19 23:22 63 18 100 05/18/19 20:57 64 154/69 05/18/19 20:06 98.2 64 18 154/69 (97) 100 05/18/19 20:00 Room Air 05/18/19 20:00 66 05/18/19 19:59 100 Room Air 21 05/18/19 19:58 64 18 100 Room Air 21 60 18 100 05/18/19 16:00 97.5 68 18 120/66 (84) 97 05/18/19 16:00 Room Air 05/18/19 16:00 68 120/66 05/18/19 16:00 68 Intake and Output 05/18/19 05/19/19 18:59 06:59 Intake Total 1120.0 ml 200 ml Balance 1120.0 ml 200 ml Intake Oral 810 ml 100 ml IV Total 310.0 ml 100 ml # Voids 3 4 # Bowel Movements 2 1 Laboratory Tests 05/18/19 16:30: Urine Random Sodium 122H, Urine Creatinine 43.0, Urine Potassium Timed 33 05/19/19 03:40: White Blood Count 14.3H, Red Blood Count 3.49L, Hemoglobin 11.0L, Hematocrit 33.0L, Mean Corpuscular Volume 95, Mean Corpuscular Hemoglobin 31.6H, Mean Corpuscular Hemoglobin Concent 33.4, Red Cell Distribution Width 11.8, Platelet Count 148L, Mean Platelet Volume 7.6, Neutrophils (%) (Auto) 80.8H, Lymphocytes (%) (Auto) 7.6L, Monocytes (%) (Auto) 9.7, Eosinophils (%) (Auto) 1.2, Basophils (%) (Auto) 0.6, Sodium Level 140, Potassium Level 4.4, Chloride Level 106, Carbon Dioxide Level 21, Anion Gap 13, Blood Urea Nitrogen 21H, Creatinine 1.3, Estimat Glomerular Filtration Rate , Glucose Level 140H, Calcium Level 9.0 , Total Bilirubin 1.1H, Direct Bilirubin 0.4H, Aspartate Amino Transf (AST/SGOT ) 76H, Alanine Aminotransferase (ALT/SGPT) 57, Alkaline Phosphatase 272H, Total Protein 6.6, Albumin 2.5L, Globulin 4.1, Albumin/Globulin Ratio 0.6L Current Medications Medications (Trade) Dose Ordered Sig/Alex Route PRN Reason Start Time Stop Time Status Last Admin Dose Admin Acetaminophen (Tylenol) 650 mg Q4H PRN ORAL Mild Pain (Pain Scale 1-3) 05/18/19 16:00 06/16/19 15:59 Albuterol/ Ipratropium (Albuterol/ Ipratropium) 3 ml Q4HRT HHN 05/18/19 19:00 05/21/19 10:59 05/19/19 14:59 Aspirin (ASA) 81 mg DAILY ORAL 05/19/19 09:00 06/17/19 08:59 05/19/19 09:46 Atorvastatin Calcium (Lipitor) 10 mg BEDTIME ORAL 05/18/19 21:00 06/14/19 20:59 05/18/19 20:56 Ceftriaxone Sodium 1 gm/ Dextrose 50 ml @ 100 mls/hr DAILY IVPB 05/19/19 13:00 05/26/19 12:59 05/19/19 13:08 Dextrose (Dextrose 50%) 50 ml Q30M PRN IV Hypoglycemia 05/18/19 16:15 06/13/19 18:14 Diphenhydramine HCl (Benadryl) 25 mg Q6H PRN ORAL Itching/Pruritis 05/18/19 16:00 06/16/19 15:59 Heparin Sodium (Porcine) (Heparin 5000 units/ml) 5,000 units EVERY 12 HOURS SUBQ 05/18/19 21:00 06/16/19 20:59 05/19/19 09:49 Hydromorphone HCl (Dilaudid) 0.5 mg Q6H PRN IVP For Pain 05/18/19 19:15 05/24/19 07:00 Metoprolol Tartrate (Lopressor) 25 mg Q12HR ORAL 05/18/19 21:00 06/14/19 20:59 05/19/19 09:47 Nitroglycerin (Ntg) 0.4 mg Q5M PRN SL Prn Chest Pain 05/18/19 16:00 06/13/19 18:14 Ondansetron HCl (Zofran) 4 mg Q6H PRN IVP Nausea & Vomiting 05/18/19 16:00 06/16/19 15:59 Buddy Mcnulty MD May 19, 2019 15:13
--- NOTE | 2019-05-19 15:52 | NUR ---
NURSE NOTES: Pt insisted on walking next to her bed. Then pt urinated on the floor next to her bed. Pt was cleaned, gown/linens changed. Pt is now resting in bed comfortably; denies pain or any other discomfort.
[2019-05-19 16:00] VITALS: BP 130/67
--- NOTE | 2019-05-19 17:00 | NUR ---
NURSE NOTES: VS stable. Pt was cleaned and repositioned.
--- NOTE | 2019-05-19 18:15 | Urology Progress Note ---
Assessment/Plan Status: stable Assessment/Plan: 1. 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 2. Microhematuria. 3. Urinary frequency. 4. Possible neurogenic bladder. 5. Sepsis. 6. Mild MIGUELINA hx, improved. abx as ordered serial renal imaging monitor renal fxn cysto later Subjective Allergies: Coded Allergies: No Known Allergies (Unverified , 10/09/18) Subjective all noted, transferred out of ICU, voiding, last PVR 27 cc Objective Last 24 Hour Vital Signs Date Time Temp Pulse Resp B/P (MAP) Pulse Ox O2 Delivery O2 Flow Rate FiO2 05/19/19 16:00 Room Air 05/19/19 16:00 68 05/19/19 16:00 98.1 63 20 130/67 (88) 97 05/19/19 15:00 66 18 100 Room Air 21 63 18 96 05/19/19 12:00 61 05/19/19 12:00 Room Air 05/19/19 12:00 97.7 68 20 101/59 (73) 95 05/19/19 10:51 65 18 100 Room Air 21 64 18 98 05/19/19 09:47 61 119/64 05/19/19 08:00 Room Air 05/19/19 08:00 99.6 61 18 119/64 (82) 97 05/19/19 08:00 69 05/19/19 07:03 99 Room Air 21 05/19/19 04:00 Room Air 05/19/19 04:00 98.6 75 17 104/57 (73) 95 05/19/19 04:00 72 05/19/19 00:00 97.5 75 17 144/68 (93) 95 05/19/19 00:00 Room Air 05/18/19 23:54 77 05/18/19 23:22 63 18 100 05/18/19 20:57 64 154/69 05/18/19 20:06 98.2 64 18 154/69 (97) 100 05/18/19 20:00 Room Air 05/18/19 20:00 66 05/18/19 19:59 100 Room Air 21 05/18/19 19:58 64 18 100 Room Air 21 60 18 100 Intake and Output 05/18/19 05/19/19 18:59 06:59 Intake Total 1120.0 ml 200 ml Balance 1120.0 ml 200 ml Intake Oral 810 ml 100 ml IV Total 310.0 ml 100 ml # Voids 3 4 # Bowel Movements 2 1 Microbiology Date/Time Source Procedure Growth Status 05/14/19 14:45 Blood Blood Culture - Final Escherichia Coli Complete 05/14/19 19:03 Nasal Nares MRSA Culture - Final NO METHICILLIN RESISTANT STAPH AUREUS... Complete 05/16/19 02:00 Stool Clostridium difficile Toxin Assay - Final Complete 05/14/19 19:03 Rectum - Final NO CARBAPENEM-RESISTANT ENTEROBACTERI... Complete Current Medications Medications (Trade) Dose Ordered Sig/Alex Route PRN Reason Start Time Stop Time Status Last Admin Dose Admin Acetaminophen (Tylenol) 650 mg Q4H PRN ORAL Mild Pain (Pain Scale 1-3) 05/18/19 16:00 06/16/19 15:59 Albuterol/ Ipratropium (Albuterol/ Ipratropium) 3 ml Q4HRT HHN 05/18/19 19:00 05/21/19 10:59 05/19/19 14:59 Aspirin (ASA) 81 mg DAILY ORAL 05/19/19 09:00 06/17/19 08:59 05/19/19 09:46 Atorvastatin Calcium (Lipitor) 10 mg BEDTIME ORAL 05/18/19 21:00 06/14/19 20:59 05/18/19 20:56 Ceftriaxone Sodium 1 gm/ Dextrose 50 ml @ 100 mls/hr DAILY IVPB 05/19/19 13:00 05/26/19 12:59 05/19/19 13:08 Dextrose (Dextrose 50%) 50 ml Q30M PRN IV Hypoglycemia 05/18/19 16:15 06/13/19 18:14 Diphenhydramine HCl (Benadryl) 25 mg Q6H PRN ORAL Itching/Pruritis 05/18/19 16:00 06/16/19 15:59 Heparin Sodium (Porcine) (Heparin 5000 units/ml) 5,000 units EVERY 12 HOURS SUBQ 05/18/19 21:00 06/16/19 20:59 05/19/19 09:49 Hydromorphone HCl (Dilaudid) 0.5 mg Q6H PRN IVP For Pain 05/18/19 19:15 05/24/19 07:00 Metoprolol Tartrate (Lopressor) 25 mg Q12HR ORAL 05/18/19 21:00 06/14/19 20:59 05/19/19 09:47 Nitroglycerin (Ntg) 0.4 mg Q5M PRN SL Prn Chest Pain 05/18/19 16:00 06/13/19 18:14 Ondansetron HCl (Zofran) 4 mg Q6H PRN IVP Nausea & Vomiting 05/18/19 16:00 06/16/19 15:59 Laboratory Tests 05/19/19 03:40: White Blood Count 14.3H, Red Blood Count 3.49L, Hemoglobin 11.0L, Hematocrit 33.0L, Mean Corpuscular Volume 95, Mean Corpuscular Hemoglobin 31.6H, Mean Corpuscular Hemoglobin Concent 33.4, Red Cell Distribution Width 11.8, Platelet Count 148L, Mean Platelet Volume 7.6, Neutrophils (%) (Auto) 80.8H, Lymphocytes (%) (Auto) 7.6L, Monocytes (%) (Auto) 9.7, Eosinophils (%) (Auto) 1.2, Basophils (%) (Auto) 0.6, Sodium Level 140, Potassium Level 4.4, Chloride Level 106, Carbon Dioxide Level 21, Anion Gap 13, Blood Urea Nitrogen 21H, Creatinine 1.3, Estimat Glomerular Filtration Rate , Glucose Level 140H, Calcium Level 9.0 , Total Bilirubin 1.1H, Direct Bilirubin 0.4H, Aspartate Amino Transf (AST/SGOT ) 76H, Alanine Aminotransferase (ALT/SGPT) 57, Alkaline Phosphatase 272H, Total Protein 6.6, Albumin 2.5L, Globulin 4.1, Albumin/Globulin Ratio 0.6L Height (Feet): 5 Height (Inches): 0.00 Weight (Pounds): 129 Objective exam stable Ciro Moreno MD May 19, 2019 18:15
--- NOTE | 2019-05-19 19:35 | NUR ---
HAND-OFF: Report given to Girma MEYER. Endorsed plan of care. VS stable.
--- NOTE | 2019-05-19 19:39 | NUR ---
NURSE NOTES: Report received from MITCH Forrest. Observed pt lying in the bed. A/O x4, denies any pain at this time. SR on alarm security or surveillance monitor. On NC 2L. Abd soft and round. IV R W 22G, SL, asymptomatic. Bed in the lowest position. Side rails up x2. Will continue to monitor.
[2019-05-19 20:00] VITALS: BP 126/56
--- NOTE | 2019-05-19 23:12 | NUR ---
NURSE NOTES: Observed pt sleeping in the bed. SR on ekg monitor tech. On room air with no SOB. No acute distress noted at this time. Will continue to monitor.
[2019-05-20] VITALS: BP 140/71
[2019-05-20] MEDS: Albuterol/Ipratropium 3ml neb HHN SCH ×6 (03:08→23:24)
[2019-05-20 04:00] VITALS: BP 140/79
[2019-05-20 04:22] LABS: EOSINOPHILS % (AUTO) 4.3 % (0.0-3.0); HEMATOCRIT 32.4 % (37.0-47.0); HEMOGLOBIN 11.1 G/DL (12.0-16.0); LYMPHOCYTES % (AUTO) 23.8 % (20.0-45.0); MEAN CORPUSCULAR VOLUME 93 FL (80-99); MONOCYTES % (AUTO) 12.1 % (1.0-10.0); NEUTROPHILS % (AUTO) 58.9 % (45.0-75.0); PLATELET COUNT 186 K/UL (150-450); RED BLOOD COUNT 3.47 M/UL (4.20-5.40); RED CELL DISTRIBUTION WIDTH 11.5 % (11.6-14.8); WHITE BLOOD COUNT 11.8 K/UL (4.8-10.8)
[2019-05-20 04:51] LABS: ALANINE AMINOTRANSFERASE 52 U/L (12-78); ALBUMIN 2.5 G/DL (3.4-5.0); ALBUMIN/GLOBULIN RATIO 0.6 (1.0-2.7); ALKALINE PHOSPHATASE 237 U/L (46-116); ANION GAP 10 mmol/L (5-15); ASPARTATE AMINO TRANSFERASE 57 U/L (15-37); BILIRUBIN,TOTAL 0.6 MG/DL (0.2-1.0); BLOOD UREA NITROGEN 27 mg/dL (7-18); CALCIUM 9.1 MG/DL (8.5-10.1); CARBON DIOXIDE 21 MMOL/L (21-32); CHLORIDE 106 MMOL/L (98-107); CREATININE 1.5 MG/DL (0.55-1.30); POTASSIUM 3.8 MMOL/L (3.5-5.1); SODIUM 137 MMOL/L (136-145)
[2019-05-20] MEDS ORDERED: Nitroglycerin Subl 0.4mg tab SL PRN (05:20)
--- NOTE | 2019-05-20 06:00 | NUR ---
NURSE NOTES: Received pt and report from MITCH Rayo. Pt transferred from SDU to [facility] without any incident. night monitor is in placed, IV site intact, asymptomatic and patent. Bed is in the lowest position and locked. Call light within reach. Belongings list checked and accounted. No signs and symptoms of acute distress noted at this time. Will continue plan of care.
--- NOTE | 2019-05-20 06:00 | NUR ---
NURSE NOTES: Report given to MITCH Bowie. No acute distress noted at this time.
--- NOTE | 2019-05-20 06:01 | NUR ---
TRANSFER TO FLOOR: Patient transferred to Tele. Report given to MITCH Bowie. Belongings and medications given to RN. No acute distress noted at this time.
[2019-05-20] MEDS ORDERED: Hydromorphone 0.5mg/0.5ml inj IVP PRN (06:45)
--- NOTE | 2019-05-20 06:52 | NUR ---
NURSE NOTES: bladder scan done and noted 0 ml.
--- NOTE | 2019-05-20 07:13 | NUR ---
NURSE NOTES: Received bedside report from Azeb RN. Pt. up sitting at the edge of the bed eating her breakfast. No sign of distress. Denies pain at present. IV site at right wrist #[id number]. in placed S.L. Bed in low position, locked. Call light within reach. Will cont. to monitor.
--- NOTE | 2019-05-20 07:45 | NUR ---
HAND-OFF: Report given to MITCH Springer.
[2019-05-20 08:00] VITALS: BP 123/66
[2019-05-20] MEDS ORDERED: Levofloxacin 250mg/D5W 50ml IVPB SCH (09:00)
[2019-05-20] MEDS: Metoprolol 25mg tab ORAL SCH ×2 (09:59→20:38)
[2019-05-20] MEDS: cefTRIAXone 1 GM in D5W 50 ML IVPB SCH (09:59)
[2019-05-20] MEDS: Aspirin Baby 81mg ORAL SCH (10:00)
[2019-05-20] MEDS: Heparin 5000 units/ml inj SUBQ SCH ×2 (10:00→20:39)
--- NOTE | 2019-05-20 11:02 | General Progress Note ---
Assessment/Plan Problem List: (1) Sepsis due to gram-negative bacteria ICD Codes: A41.50 - Gram-negative sepsis, unspecified SNOMED: 815601782 (2) E coli bacteremia ICD Codes: R78.81 - Bacteremia SNOMED: 459444820654 (3) Pulmonary hypertension ICD Codes: I27.20 - Pulmonary hypertension, unspecified SNOMED: 90976439 (4) HTN (hypertension) ICD Codes: I10 - Essential (primary) hypertension SNOMED: 25080167 (5) CAD (coronary artery disease) ICD Codes: I25.10 - Atherosclerotic heart disease of [place] coronary artery without angina pectoris SNOMED: 09547244 (6) Shortness of breath ICD Codes: R06.02 - Shortness of breath SNOMED: 553549519 (7) Atrial fibrillation with RVR ICD Codes: I48.91 - Unspecified atrial fibrillation SNOMED: 926445588137075 (8) MIGUELINA (acute kidney injury) ICD Codes: N17.9 - Acute kidney failure, unspecified SNOMED: 4969348, 26549279 (9) Microhematuria ICD Codes: R31.29 - Other microscopic hematuria SNOMED: 230457015 (10) Renal mass ICD Codes: N28.89 - Other specified disorders of kidney and ureter SNOMED: 091636508 (11) Thrombocytopenia ICD Codes: D69.6 - Thrombocytopenia, unspecified SNOMED: 028825913 (12) Hypoxia ICD Codes: R09.02 - Hypoxemia SNOMED: 312791178 Status: stable Assessment/Plan: 88 year old female with history of non obstructive CAD, pulmonary HTN on echocardiogram, HTN, NSTEMI presented with sudden onset SOB, no fever or chills or abdominal pain. Admitted to step down for Acute hypoxic respiratory failure. Found to have sepsis with gram negative bacteremia. She was started on diuresis wit furosemide to lower filling and pulmonary pressures, developed Afib with rvr and transferred to ICU and stared on dilt ggt. Converted to sinus rhythm. Now off dilt ggt and NSR in 60's, transferred to stepdown on 05/18/19 1. Acute hypoxic respiratory failure- resolved. Now with E.Coli sepsis and bacteremia (multiple bottles). ID on board. s/p Amikacin. Receiving Zosyn. Sensitivities reviewed. Resistant to Zosyn. Started Lefloxacin renal dosed (500 q24hr) when sensitivites were limited. Now switched to ceftriaxone. Discussed with ID. day 5 abx 2. pAF, converted to NSR. Off dilt ggt. Continue rate control with metoprolol. Follow up cards recs. AF less than 12hours, will hold off on anticoagulation for now. Since patient has sepsis and hypovolemic s/p diuresis, s/p bolus 500 ml NS on 05/17. Discussed with spot washer, Dr. Hdez. Hold off diuresis and IVF. 3. Severe pulmonary hypertension per echo, no history of lung disease. Pulmonary consult appreciated. V/Q to r/o CTEPH: Ventilation is moderately heterogeneous. No significant defects are identified. Perfusion is also moderately heterogeneous. No significant defects are identified. No mismatched defects seen. serologies (ASHLEY , RF, HIV). Needs outpatient PFTs and PSG. RHC in the future. ASHLEY negative, HIV negative. 4. Non obstructive CAD. History of NSTEMI. left heart cath 10/2018 [facility]. Cardiology on board. Continue ASA, statin, metoprolol and nitroglycerin as needed. 5. MIGUELINA vs MIGUELINA on CKD. Likely from IV contrast and diuresis. Discontinued furosemide on 05/17. Avoid nephrotoxic medications. if no improvement, nephrology consult. Consulted Dr. Waters. 6. Thrombocytopenia. Likely from sepsis.Resolved 7. Renal mass vs inflammation. urology consult. f/u recs. Watch for now. No acute intervention. Serial imaging. Dr. Keller on board Diet: cardiac Code: full code Disposition: Home soon I spent 40 minutes on this encounter. 50% spent on counseling and care coordination. I discussed the case extensively with daughter Costa on the phone. Time of this note may not reflect time of encounter Subjective Allergies: Coded Allergies: No Known Allergies (Unverified , 10/09/18) Subjective Patient seen and examined in step down. Eating breakfast. in good spirits . Off dilt ggt on po metoprolol feeling well, denies cp, sob, palps blood culture grew E.coli sensitive to ceftriaxone Objective Last 24 Hour Vital Signs Date Time Temp Pulse Resp B/P (MAP) Pulse Ox O2 Delivery O2 Flow Rate FiO2 05/20/19 10:40 73 17 97 Room Air 21 72 16 94 05/20/19 09:59 78 123/66 05/20/19 08:00 98.8 78 18 123/66 (85) 99 05/20/19 06:57 96 Room Air 21 05/20/19 06:57 73 19 99 Room Air 21 72 19 96 05/20/19 04:00 97.9 63 20 140/79 (99) 99 05/20/19 04:00 76 05/20/19 03:19 65 18 99 Room Air 21 64 20 95 05/20/19 00:00 79 05/20/19 00:00 98.2 75 20 140/71 (94) 97 05/19/19 23:15 69 18 99 Room Air 21 68 18 98 05/19/19 21:01 75 126/56 05/19/19 20:00 71 05/19/19 20:00 Room Air 05/19/19 20:00 97.9 75 20 126/56 (79) 95 05/19/19 19:09 64 18 99 Room Air 21 62 18 97 05/19/19 18:59 97 Room Air 21 05/19/19 16:00 Room Air 05/19/19 16:00 68 05/19/19 16:00 98.1 63 20 130/67 (88) 97 05/19/19 15:00 66 18 100 Room Air 21 63 18 96 05/19/19 12:00 61 05/19/19 12:00 Room Air 05/19/19 12:00 97.7 68 20 101/59 (73) 95 Intake and Output 05/19/19 05/20/19 19:00 07:00 Intake Total 100 ml 60 ml Balance 100 ml 60 ml Intake Oral 60 ml IV Total 100 ml # Bowel Movements 1 Laboratory Tests 05/20/19 03:20: White Blood Count 11.8H, Red Blood Count 3.47L, Hemoglobin 11.1L, Hematocrit 32.4L, Mean Corpuscular Volume 93, Mean Corpuscular Hemoglobin 31.9H, Mean Corpuscular Hemoglobin Concent 34.2, Red Cell Distribution Width 11.5L, Platelet Count 186, Mean Platelet Volume 7.2, Neutrophils (%) (Auto) 58.9, Lymphocytes (%) (Auto) 23.8, Monocytes (%) (Auto) 12.1H, Eosinophils (%) (Auto) 4.3H, Basophils (%) (Auto) 1.0, Sodium Level 137, Potassium Level 3.8, Chloride Level 106, Carbon Dioxide Level 21, Anion Gap 10, Blood Urea Nitrogen 27H, Creatinine 1.5H, Estimat Glomerular Filtration Rate , Glucose Level 128H, Calcium Level 9.1, Total Bilirubin 0.6, Aspartate Amino Transf (AST/SGOT) 57H, Alanine Aminotransferase (ALT/SGPT) 52, Alkaline Phosphatase 237H, Total Protein 6.7, Albumin 2.5L, Globulin 4.2, Albumin/Globulin Ratio 0.6L Height (Feet): 5 Height (Inches): 0.00 Weight (Pounds): 128 Objective General Appearance: no apparent distress, alert and oriented, English speaking HEENT: normocephalic, atraumatic Neck: non-tender, normal alignment, supple Respiratory/Chest: chest wall non-tender, lungs clear, normal breath sounds, no respiratory distress, no accessory muscle use Cardiovascular/Chest: normal peripheral pulses, normal rate, regular rhythm, no m/r/g Abdomen: normal bowel sounds, soft, non distended, non tender Extremities: normal range of motion, non-tender, normal inspection, no calf tenderness. no edema Neurologic: control systems engineer II-XII grossly normal, no motor/sensory deficits Skin: No ulcer or rashes Jim Gabriel M.D. May 20, 2019 11:02
[2019-05-20 12:00] VITALS: BP 117/67
--- NOTE | 2019-05-20 14:02 | Urology Progress Note ---
Assessment/Plan Status: stable Assessment/Plan: 1. 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 2. Microhematuria. 3. Urinary frequency. 4. Possible neurogenic bladder. 5. Sepsis. 6. Mild MIGUELINA hx, labile renal fxn. abx as ordered serial renal imaging monitor renal fxn cysto later d/w pt's daughter fully Subjective Allergies: Coded Allergies: No Known Allergies (Unverified , 10/09/18) Subjective all noted, feels fair Objective Last 24 Hour Vital Signs Date Time Temp Pulse Resp B/P (MAP) Pulse Ox O2 Delivery O2 Flow Rate FiO2 05/20/19 12:00 98.5 80 20 117/67 (84) 97 05/20/19 10:40 73 17 97 Room Air 21 72 16 94 05/20/19 09:59 78 123/66 05/20/19 09:00 Room Air 05/20/19 08:00 98.8 78 18 123/66 (85) 99 05/20/19 06:57 96 Room Air 21 05/20/19 06:57 73 19 99 Room Air 21 72 19 96 05/20/19 04:00 97.9 63 20 140/79 (99) 99 05/20/19 04:00 76 05/20/19 03:19 65 18 99 Room Air 21 64 20 95 05/20/19 00:00 79 05/20/19 00:00 98.2 75 20 140/71 (94) 97 05/19/19 23:15 69 18 99 Room Air 21 68 18 98 05/19/19 21:01 75 126/56 05/19/19 20:00 71 05/19/19 20:00 Room Air 05/19/19 20:00 97.9 75 20 126/56 (79) 95 05/19/19 19:09 64 18 99 Room Air 21 62 18 97 05/19/19 18:59 97 Room Air 21 05/19/19 16:00 Room Air 05/19/19 16:00 68 05/19/19 16:00 98.1 63 20 130/67 (88) 97 05/19/19 15:00 66 18 100 Room Air 21 63 18 96 Intake and Output 05/19/19 05/20/19 19:00 07:00 Intake Total 100 ml 60 ml Balance 100 ml 60 ml Intake Oral 60 ml IV Total 100 ml # Bowel Movements 1 Microbiology Date/Time Source Procedure Growth Status 05/14/19 14:45 Blood Blood Culture - Final Escherichia Coli Complete 05/14/19 19:03 Nasal Nares MRSA Culture - Final NO METHICILLIN RESISTANT STAPH AUREUS... Complete 05/16/19 02:00 Stool Clostridium difficile Toxin Assay - Final Complete 05/14/19 19:03 Rectum - Final NO CARBAPENEM-RESISTANT ENTEROBACTERI... Complete Current Medications Medications (Trade) Dose Ordered Sig/Alex Route PRN Reason Start Time Stop Time Status Last Admin Dose Admin Acetaminophen (Tylenol) 650 mg Q4H PRN ORAL Mild Pain (Pain Scale 1-3) 05/20/19 06:43 06/16/19 06:42 Albuterol/ Ipratropium (Albuterol/ Ipratropium) 3 ml Q4HRT HHN 05/20/19 07:00 05/21/19 10:59 05/20/19 10:32 Aspirin (ASA) 81 mg DAILY ORAL 05/20/19 09:00 06/17/19 08:59 05/20/19 10:00 Atorvastatin Calcium (Lipitor) 10 mg BEDTIME ORAL 05/20/19 21:00 06/14/19 20:59 Ceftriaxone Sodium 1 gm/ Dextrose 50 ml @ 100 mls/hr DAILY IVPB 05/20/19 09:00 05/26/19 12:59 05/20/19 09:59 Dextrose (Dextrose 50%) 50 ml Q30M PRN IV Hypoglycemia 05/20/19 05:45 06/13/19 18:14 Diphenhydramine HCl (Benadryl) 25 mg Q6H PRN ORAL Itching/Pruritis 05/20/19 06:45 06/16/19 06:44 Heparin Sodium (Porcine) (Heparin 5000 units/ml) 5,000 units EVERY 12 HOURS SUBQ 05/20/19 09:00 06/16/19 20:59 05/20/19 10:00 Hydromorphone HCl (Dilaudid) 0.5 mg Q6H PRN IVP For Pain 05/20/19 06:45 05/24/19 06:44 Metoprolol Tartrate (Lopressor) 25 mg Q12HR ORAL 05/20/19 09:00 06/14/19 20:59 05/20/19 09:59 Nitroglycerin (Ntg) 0.4 mg Q5M PRN SL Prn Chest Pain 05/20/19 05:20 06/13/19 18:14 Ondansetron HCl (Zofran) 4 mg Q6H PRN IVP Nausea & Vomiting 05/20/19 06:43 06/16/19 06:42 Laboratory Tests 05/20/19 03:20: White Blood Count 11.8H, Red Blood Count 3.47L, Hemoglobin 11.1L, Hematocrit 32.4L, Mean Corpuscular Volume 93, Mean Corpuscular Hemoglobin 31.9H, Mean Corpuscular Hemoglobin Concent 34.2, Red Cell Distribution Width 11.5L, Platelet Count 186, Mean Platelet Volume 7.2, Neutrophils (%) (Auto) 58.9, Lymphocytes (%) (Auto) 23.8, Monocytes (%) (Auto) 12.1H, Eosinophils (%) (Auto) 4.3H, Basophils (%) (Auto) 1.0, Sodium Level 137, Potassium Level 3.8, Chloride Level 106, Carbon Dioxide Level 21, Anion Gap 10, Blood Urea Nitrogen 27H, Creatinine 1.5H, Estimat Glomerular Filtration Rate , Glucose Level 128H, Calcium Level 9.1, Total Bilirubin 0.6, Aspartate Amino Transf (AST/SGOT) 57H, Alanine Aminotransferase (ALT/SGPT) 52, Alkaline Phosphatase 237H, Total Protein 6.7, Albumin 2.5L, Globulin 4.2, Albumin/Globulin Ratio 0.6L Height (Feet): 5 Height (Inches): 0.00 Weight (Pounds): 128 Objective exam stable Ciro Moreno MD May 20, 2019 14:02
--- NOTE | 2019-05-20 14:38 | Infectious Diseases Prog Note ---
Assessment/Plan Assessment/Plan ASSESSMENT AND PLAN: 1. e.coli bacteremia, ? pyelonephritis/uti on CT, sepsis, af with rvr - rocephin - day # 5 abx - consider oral abx soon - po ciprofloxacin - check surveillance blood cultures - monitor labs - leukocytosis improved 2. Renal mass - Consider Urology evaluation. 3. Anemia. 4. Chronic kidney disease. 5. Elevated creatinine. 6. Hypertension. 7. Pulmonary hypertension. 8. Blood pressure treatment per primary. 9. COPD and asthma. 10. Hypoxia. 11. CAD. 12. History of non-STEMI. 13. No known drug allergies. 14. Social history is negative. 15. Family history is noncontributory. 16. MAR was noted. 17. Case was discussed with RN. 18. Case was discussed with Dr. Gabriel. Subjective Constitutional: Denies: fever Respiratory: Denies: shortness of breath Cardiovascular: Denies: chest pain Gastrointestinal/Abdominal: Denies: nausea, vomiting, diarrhea Genitourinary: Reports: other - no chatman Neurologic: Denies: headache Psychiatric: Denies: depression Skin: Denies: rash Hematologic: Denies: bleeding Musculoskeletal: Denies: pain Allergies: Coded Allergies: No Known Allergies (Unverified , 10/09/18) Objective Vital Signs Last 24 Hour Vital Signs Date Time Temp Pulse Resp B/P (MAP) Pulse Ox O2 Delivery O2 Flow Rate FiO2 05/20/19 12:00 98.5 80 20 117/67 (84) 97 05/20/19 10:40 73 17 97 Room Air 21 72 16 94 05/20/19 09:59 78 123/66 05/20/19 09:00 Room Air 05/20/19 08:00 98.8 78 18 123/66 (85) 99 05/20/19 06:57 96 Room Air 21 05/20/19 06:57 73 19 99 Room Air 21 72 19 96 05/20/19 04:00 97.9 63 20 140/79 (99) 99 05/20/19 04:00 76 05/20/19 03:19 65 18 99 Room Air 21 64 20 95 05/20/19 00:00 79 05/20/19 00:00 98.2 75 20 140/71 (94) 97 05/19/19 23:15 69 18 99 Room Air 21 68 18 98 05/19/19 21:01 75 126/56 05/19/19 20:00 71 05/19/19 20:00 Room Air 05/19/19 20:00 97.9 75 20 126/56 (79) 95 05/19/19 19:09 64 18 99 Room Air 21 62 18 97 05/19/19 18:59 97 Room Air 21 05/19/19 16:00 Room Air 05/19/19 16:00 68 05/19/19 16:00 98.1 63 20 130/67 (88) 97 05/19/19 15:00 66 18 100 Room Air 21 63 18 96 Height (Feet): 5 Height (Inches): 0.00 Weight (Pounds): 128 General Appearance: no acute distress HEENT: normocephalic, atraumatic, anicteric, mucous membranes moist Respiratory/Chest: lungs clear, normal breath sounds, no respiratory distress, no accessory muscle use Cardiovascular: normal rate, regular rhythm, no gallop/murmur, no JVD Abdomen: normal bowel sounds, soft, non tender, no organomegaly, non distended Genitourinary: other - no chatman Extremities: no cyanosis Skin: no rash Neurologic/Psychiatric: desktop operator II-XII grossly normal, alert, oriented x 3, responsive Lymphatic: no neck adenopathy Musculoskeletal: no effusion Objective CT abdomen and pelvis: Impression: Solid-appearing 2.2 cm diameter left renal mass. This is concerning for renal neoplasm. However, the presence of rim and internal calcification raises the possibility that this could represent an inflammatory or postinflammatory lesion. Further evaluation with sonography and/or contrast MRI should be considered. This was discussed in person with Dr. Andre Equivocal slight indistinctness to the left renal margin is infiltration of the perinephric fat, could indicate renal inflammation/infection. Graft there is nonspecific mild ectasia of the bilateral ureters without evidence of downstream obstruction Equivocal mild wall thickening of the gastric antrum, probably artifact of under distention but the possibility of gastritis or peptic ulcer disease should be considered. Cholelithiasis Subcentimeter right lobe liver lesion, too small to characterize. No further follow-up necessary Degenerative spondylosis and scoliotic deformity The CT scanner at [facility] is accredited by the [employer] and the scans are performed using protocols designed to limit radiation exposure to as low as reasonably achievable to attain images of sufficient resolution adequate for diagnostic evaluation. Comparison: none Findings: Pulmonary arterial opacification is adequate. There is image degradation due to motion artifact. This particularly limits evaluation in the lower lungs. No definite acute pulmonary emboli, although small peripheral emboli could be missed due to the motion artifact. The main and right pulmonary arteries are dilated, measuring 40 and 32 mm in diameter. There is four-chamber cardiomegaly without specific right ventricular dilatation. No evidence of thoracic aortic aneurysm or dissection. There is thick atherosclerotic plaquing of the aortic arch which narrows the lumen by about 30% diameter. There is normal branching anatomy and caliber of the great neck vessels. The lungs demonstrate posterior atelectatic changes. No definite infiltrates, effusions, masses, or nodules. Assessment of the lungs is somewhat limited due to motion artifact. No pericardial effusion. No mediastinal or hilar mass or adenopathy. Normal- appearing esophagus. There is a small hiatal hernia. No axillary or chest wall mass or adenopathy. The bones demonstrate multiple old healed right rib fracture deformities. The included upper abdominal anatomy is unremarkable. CT chest - Impression: Limited exam, as described, due to motion artifact. This precludes confident exclusion of small peripheral emboli No evidence of acute central pulmonary embolus or other acute thoracic vascular pathology Aortic arch plaque Cardiomegaly Pulmonary atelectatic changes Old healed right rib fractures Microbiology Date/Time Source Procedure Growth Status 05/14/19 14:45 Blood Blood Culture - Final Escherichia Coli Complete 05/14/19 19:03 Nasal Nares MRSA Culture - Final NO METHICILLIN RESISTANT STAPH AUREUS... Complete 05/16/19 02:00 Stool Clostridium difficile Toxin Assay - Final Complete 05/14/19 19:03 Rectum - Final NO CARBAPENEM-RESISTANT ENTEROBACTERI... Complete Laboratory Tests Test 05/20/19 03:20 White Blood Count 11.8 K/UL (4.8-10.8) H Red Blood Count 3.47 M/UL (4.20-5.40) L Hemoglobin 11.1 G/DL (12.0-16.0) L Hematocrit 32.4 % (37.0-47.0) L Mean Corpuscular Volume 93 FL (80-99) Mean Corpuscular Hemoglobin 31.9 PG (27.0-31.0) H Mean Corpuscular Hemoglobin Concent 34.2 G/DL (32.0-36.0) Red Cell Distribution Width 11.5 % (11.6-14.8) L Platelet Count 186 K/UL (150-450) Mean Platelet Volume 7.2 FL (6.5-10.1) Neutrophils (%) (Auto) 58.9 % (45.0-75.0) Lymphocytes (%) (Auto) 23.8 % (20.0-45.0) Monocytes (%) (Auto) 12.1 % (1.0-10.0) H Eosinophils (%) (Auto) 4.3 % (0.0-3.0) H Basophils (%) (Auto) 1.0 % (0.0-2.0) Sodium Level 137 MMOL/L (136-145) Potassium Level 3.8 MMOL/L (3.5-5.1) Chloride Level 106 MMOL/L (98-107) Carbon Dioxide Level 21 MMOL/L (21-32) Anion Gap 10 mmol/L (5-15) Blood Urea Nitrogen 27 mg/dL (7-18) H Creatinine 1.5 MG/DL (0.55-1.30) H Estimat Glomerular Filtration Rate mL/min (>60) Glucose Level 128 MG/DL (74-106) H Calcium Level 9.1 MG/DL (8.5-10.1) Total Bilirubin 0.6 MG/DL (0.2-1.0) Aspartate Amino Transf (AST/SGOT) 57 U/L (15-37) H Alanine Aminotransferase (ALT/SGPT) 52 U/L (12-78) Alkaline Phosphatase 237 U/L (46-116) H Total Protein 6.7 G/DL (6.4-8.2) Albumin 2.5 G/DL (3.4-5.0) L Globulin 4.2 g/dL Albumin/Globulin Ratio 0.6 (1.0-2.7) L Current Medications Medications (Trade) Dose Ordered Sig/Alex Route PRN Reason Start Time Stop Time Status Last Admin Dose Admin Acetaminophen (Tylenol) 650 mg Q4H PRN ORAL Mild Pain (Pain Scale 1-3) 05/20/19 06:43 06/16/19 06:42 Albuterol/ Ipratropium (Albuterol/ Ipratropium) 3 ml Q4HRT N 05/20/19 07:00 05/21/19 10:59 05/20/19 10:32 Aspirin (ASA) 81 mg DAILY ORAL 05/20/19 09:00 06/17/19 08:59 05/20/19 10:00 Atorvastatin Calcium (Lipitor) 10 mg BEDTIME ORAL 05/20/19 21:00 06/14/19 20:59 Ceftriaxone Sodium 1 gm/ Dextrose 50 ml @ 100 mls/hr DAILY IVPB 05/20/19 09:00 05/26/19 12:59 05/20/19 09:59 Dextrose (Dextrose 50%) 50 ml Q30M PRN IV Hypoglycemia 05/20/19 05:45 06/13/19 18:14 Diphenhydramine HCl (Benadryl) 25 mg Q6H PRN ORAL Itching/Pruritis 05/20/19 06:45 06/16/19 06:44 Heparin Sodium (Porcine) (Heparin 5000 units/ml) 5,000 units EVERY 12 HOURS SUBQ 05/20/19 09:00 06/16/19 20:59 05/20/19 10:00 Hydromorphone HCl (Dilaudid) 0.5 mg Q6H PRN IVP For Pain 05/20/19 06:45 05/24/19 06:44 Metoprolol Tartrate (Lopressor) 25 mg Q12HR ORAL 05/20/19 09:00 06/14/19 20:59 05/20/19 09:59 Nitroglycerin (Ntg) 0.4 mg Q5M PRN SL Prn Chest Pain 05/20/19 05:20 06/13/19 18:14 Ondansetron HCl (Zofran) 4 mg Q6H PRN IVP Nausea & Vomiting 05/20/19 06:43 06/16/19 06:42 Monica Perez MD May 20, 2019 14:38
--- NOTE | 2019-05-20 15:29 | Cardiology Report ---
APPROVED REPORT EKG Measurement Heart [id number] Atrial fibrillation with rapid ventricular response Minimal voltage criteria for LVH, may be normal variant Marked ST abnormality, possible inferior subendocardial injury Abnormal ECG
[2019-05-20 16:00] VITALS: BP 135/70
--- NOTE | 2019-05-20 18:57 | Pulmonology Progress Note ---
Assessment/Plan Assessment/Plan Pulmonary Progress Note Critical Care - Asmt/Plan Problems: (1) Pulmonary hypertension (2) CAD (coronary artery disease) (3) HTN (hypertension) (4) Gram-negative bacteremia (5) Paroxysmal atrial fibrillation (6) Renal mass (7) Sepsis due to gram-negative bacteria (8) Thrombocytopenia (9) MIGUELINA (acute kidney injury) Assessment/Plan: PULMONARY HTN: out of proportion to LV function and no h/o known lung disease -VQ to R/O CTEPH -Check serologies -LFT's normal, F/U HIV -Needs OP PFT's and PSG -Consider RHC in the future GRAM NEGATIVE SEPSIS: -Abx (Zosyn) per ID, F/U Cx's -? source pAF --> NSR -Off dilt gtt -Rate control -F/U cards recs -D/C AC - was in AF less than 12 hours and was likely 2/2 hypovolemia and sepsis -D/C Lasix, NS bolus 500 cc Non-Obs CAD: -LHC @ [facility] 10/2018 reviewed -ASA, statin, med management DYSPNEA: -Pulm hygiene -HHN's RENAL MASS: -W/U per MIGUELINA: likely pre-renal from diuresis -D/C lasix, NS 500 cc x 1 -W/U further if not better THROMBOCYTOPENIA: -Likely from sepsis, continue to monitor, w/u further if not better PPx: Hep SQ FC Disposition: transfer to - [facility] Time Spent (Minutes): 40 Notes Reviewed: customer sales specialist, cardio, ID, other - Discussed with: nurses, consultants, other - PMD Objective Vital Signs Noted Status: awake, other - NAD Condition: improving HEENT: atraumatic, normocephalic Neck: full ROM Lungs: clear Heart: HR/BP stable Abdomen: soft, non-tender, active bowel sounds Extremities: no C/C/E Micro: Microbiology Date/Time Source Procedure Growth Status 05/14/19 14:45 Blood Blood Culture - Preliminary Gram Negative Bacillus 1 Resulted 05/14/19 14:45 Blood Blood Culture - Preliminary Gram Negative Bacillus 1 Resulted 05/14/19 19:03 Nasal Nares MRSA Culture - Final NO METHICILLIN RESISTANT STAPH AUREUS... Complete 05/16/19 02:00 Stool Clostridium difficile Toxin Assay - Final Complete 05/14/19 19:03 Rectum - Final NO CARBAPENEM-RESISTANT ENTEROBACTERI... Complete 05/14/19 19:00 Rectum VRE Culture - Final NO VANCOMYCIN RESISTANT ENTEROCOCCUS ... Complete Blood Sugars: BS controlled Critical Care - Subjective Interval Events: Transferred for AFcRVR ---> NSR/SB off dilt gtt AFVSS o/w no distress No cough no SOB no CP no FC Condition: critical IV Access: peripheral EKG Rhythm: Sinus Bradycardia FI02: 28 Sputum Amount: None Fluids: SLIV CXR: 05/14/16 CT-A: Impression: Limited exam, as described, due to motion artifact. This precludes confident exclusion of small peripheral emboli No evidence of acute central pulmonary embolus or other acute thoracic vascular pathology Aortic arch plaque Cardiomegaly Pulmonary atelectatic changes Old healed right rib fractures 05/16/19 CT A/P: Impression: Solid-appearing 2.2 cm diameter left renal mass. This is concerning for renal neoplasm. However, the presence of rim and internal calcification raises the possibility that this could represent an inflammatory or postinflammatory lesion. Further evaluation with sonography and/or contrast MRI should be considered. This was discussed in person with Dr. Andre Equivocal slight indistinctness to the left renal margin is infiltration of the perinephric fat, could indicate renal inflammation/infection. Graft there is nonspecific mild ectasia of the bilateral ureters without evidence of downstream obstruction Equivocal mild wall thickening of the gastric antrum, probably artifact of under distention but the possibility of gastritis or peptic ulcer disease should be considered. Cholelithiasis Subcentimeter right lobe liver lesion, too small to characterize. No further follow-up necessar Degenerative spondylosis and scoliotic deformity 05/15/19 TTE: Normal left ventricular chamber size, systolic function and wall motion. Left ventricular ejection fraction estimated to be 60 - 65%. Anterior Echo-free space, may be due to pericardial fat or effusion. All other cardiac chamber sizes are within normal limits. Focal aortic valve sclerosis with adequate cusp excursion. Thickened mitral valve leaflets with normal excursion. Normal pulmonic valve structure. Normal tricuspid valve structure. IVC at normal size with physiologic collapse. A color flow and spectral Doppler study was performed and revealed: Mitral diastolic velocities suggest reduced left ventricular relaxation c/w mild LV diastolic dysfunction (Grade I ). Trace mitral regurgitation. Moderate tricuspid regurgitation. Tricuspid systolic velocities suggests peak right ventricular systolic pressure of 74 mmHg consistent with severe pulmonary hypertension. Mild pulmonic regurgitation present. No aortic regurgitation. 10/14/18 LHC ([facility]) --> non-obstructive CAD Labs: Laboratory Tests Test 05/17/19 03:00 White Blood Count 13.9 K/UL (4.8-10.8) H Red Blood Count 3.48 M/UL (4.20-5.40) L Hemoglobin 11.1 G/DL (12.0-16.0) L Hematocrit 32.6 % (37.0-47.0) L Mean Corpuscular Volume 94 FL (80-99) Mean Corpuscular Hemoglobin 31.8 PG (27.0-31.0) H Mean Corpuscular Hemoglobin Concent 33.9 G/DL (32.0-36.0) Red Cell Distribution Width 11.6 % (11.6-14.8) Platelet Count 93 K/UL (150-450) L Mean Platelet Volume 7.5 FL (6.5-10.1) Neutrophils (%) (Auto) % (45.0-75.0) Lymphocytes (%) (Auto) % (20.0-45.0) Monocytes (%) (Auto) % (1.0-10.0) Eosinophils (%) (Auto) % (0.0-3.0) Basophils (%) (Auto) % (0.0-2.0) Sodium Level 140 MMOL/L (136-145) Potassium Level 3.1 MMOL/L (3.5-5.1) L Chloride Level 106 MMOL/L (98-107) Carbon Dioxide Level 20 MMOL/L (21-32) L Anion Gap 14 mmol/L (5-15) Blood Urea Nitrogen 23 mg/dL (7-18) H Creatinine 1.5 MG/DL (0.55-1.30) H Estimat Glomerular Filtration Rate mL/min (>60) Glucose Level 159 MG/DL (74-106) H Calcium Level 8.6 MG/DL (8.5-10.1) Total Bilirubin 0.8 MG/DL (0.2-1.0) Aspartate Amino Transf (AST/SGOT) 36 U/L (15-37) Alanine Aminotransferase (ALT/SGPT) 35 U/L (12-78) Alkaline Phosphatase 131 U/L (46-116) H Total Protein 6.1 G/DL (6.4-8.2) L Albumin 2.4 G/DL (3.4-5.0) L Globulin 3.7 g/dL Albumin/Globulin Ratio 0.6 (1.0-2.7) L Subjective ROS Limited/Unobtainable: No Allergies: Coded Allergies: No Known Allergies (Unverified , 10/09/18) Objective Last 24 Hour Vital Signs Date Time Temp Pulse Resp B/P (MAP) Pulse Ox O2 Delivery O2 Flow Rate FiO2 05/20/19 16:00 97.6 66 18 135/70 (91) 98 05/20/19 15:20 64 05/20/19 15:17 66 17 99 Room Air 21 65 20 97 05/20/19 12:00 98.5 80 20 117/67 (84) 97 05/20/19 12:00 76 05/20/19 10:40 73 17 97 Room Air 21 72 16 94 05/20/19 09:59 78 123/66 05/20/19 09:00 Room Air 05/20/19 08:00 81 05/20/19 08:00 98.8 78 18 123/66 (85) 99 05/20/19 06:57 96 Room Air 21 05/20/19 06:57 73 19 99 Room Air 21 72 19 96 05/20/19 04:00 97.9 63 20 140/79 (99) 99 05/20/19 04:00 76 05/20/19 03:19 65 18 99 Room Air 21 64 20 95 05/20/19 00:00 79 05/20/19 00:00 98.2 75 20 140/71 (94) 97 05/19/19 23:15 69 18 99 Room Air 21 68 18 98 05/19/19 21:01 75 126/56 05/19/19 20:00 71 05/19/19 20:00 Room Air 05/19/19 20:00 97.9 75 20 126/56 (79) 95 05/19/19 19:09 64 18 99 Room Air 21 62 18 97 05/19/19 18:59 97 Room Air 21 Intake and Output 05/19/19 05/20/19 18:59 06:59 Intake Total 100 ml 60 ml Balance 100 ml 60 ml Intake Oral 60 ml IV Total 100 ml # Bowel Movements 1 Laboratory Tests 05/20/19 03:20: White Blood Count 11.8H, Red Blood Count 3.47L, Hemoglobin 11.1L, Hematocrit 32.4L, Mean Corpuscular Volume 93, Mean Corpuscular Hemoglobin 31.9H, Mean Corpuscular Hemoglobin Concent 34.2, Red Cell Distribution Width 11.5L, Platelet Count 186, Mean Platelet Volume 7.2, Neutrophils (%) (Auto) 58.9, Lymphocytes (%) (Auto) 23.8, Monocytes (%) (Auto) 12.1H, Eosinophils (%) (Auto) 4.3H, Basophils (%) (Auto) 1.0, Sodium Level 137, Potassium Level 3.8, Chloride Level 106, Carbon Dioxide Level 21, Anion Gap 10, Blood Urea Nitrogen 27H, Creatinine 1.5H, Estimat Glomerular Filtration Rate , Glucose Level 128H, Calcium Level 9.1, Total Bilirubin 0.6, Aspartate Amino Transf (AST/SGOT) 57H, Alanine Aminotransferase (ALT/SGPT) 52, Alkaline Phosphatase 237H, Total Protein 6.7, Albumin 2.5L, Globulin 4.2, Albumin/Globulin Ratio 0.6L Current Medications Medications (Trade) Dose Ordered Sig/Alex Route PRN Reason Start Time Stop Time Status Last Admin Dose Admin Acetaminophen (Tylenol) 650 mg Q4H PRN ORAL Mild Pain (Pain Scale 1-3) 05/20/19 06:43 06/16/19 06:42 Albuterol/ Ipratropium (Albuterol/ Ipratropium) 3 ml Q4HRT HHN 05/20/19 07:00 05/21/19 10:59 05/20/19 15:07 Aspirin (ASA) 81 mg DAILY ORAL 05/20/19 09:00 06/17/19 08:59 05/20/19 10:00 Atorvastatin Calcium (Lipitor) 10 mg BEDTIME ORAL 05/20/19 21:00 06/14/19 20:59 Ceftriaxone Sodium 1 gm/ Dextrose 50 ml @ 100 mls/hr DAILY IVPB 05/20/19 09:00 05/26/19 12:59 05/20/19 09:59 Dextrose (Dextrose 50%) 50 ml Q30M PRN IV Hypoglycemia 05/20/19 05:45 06/13/19 18:14 Diphenhydramine HCl (Benadryl) 25 mg Q6H PRN ORAL Itching/Pruritis 05/20/19 06:45 06/16/19 06:44 Heparin Sodium (Porcine) (Heparin 5000 units/ml) 5,000 units EVERY 12 HOURS SUBQ 05/20/19 09:00 06/16/19 20:59 05/20/19 10:00 Hydromorphone HCl (Dilaudid) 0.5 mg Q6H PRN IVP For Pain 05/20/19 06:45 05/24/19 06:44 Metoprolol Tartrate (Lopressor) 25 mg Q12HR ORAL 05/20/19 09:00 06/14/19 20:59 05/20/19 09:59 Nitroglycerin (Ntg) 0.4 mg Q5M PRN SL Prn Chest Pain 05/20/19 05:20 06/13/19 18:14 Ondansetron HCl (Zofran) 4 mg Q6H PRN IVP Nausea & Vomiting 05/20/19 06:43 06/16/19 06:42 Buddy Mcnulty MD May 20, 2019 18:57
--- NOTE | 2019-05-20 19:42 | NUR ---
HAND-OFF: Report given to Radhika MEYER. Pt. remain stable.
--- NOTE | 2019-05-20 19:53 | NUR ---
NURSE NOTES: RECEIVED PATIENT RESTING IN BED, NO COMPLAINTS OF PAIN AT THIS TIME. FALL PRECAUTIONS IN PLACE: CALL LIGHT, BEDSIDE TABLE AND CANE WITHIN REACH, BED IN LOW POSITION AND BED ALARM ON. WILL CONTINUE WITH PLAN OF CARE.
[2019-05-20 20:00] VITALS: BP 128/58
--- NOTE | 2019-05-20 21:46 | Cardiology Progress Note ---
Assessment/Plan Status: stable Assessment/Plan Assessment/Plan Status: stable Assessment/Plan: Assessment Shortness of breath Chest pain NSTEMI Elevated troponin Hypertension Pulmonary hypertension Diastolic dysfunction Plan Chest pain/Elevated trop[facility] non obstructive CAD Elevated troponin multifactorial EKG no ischemia Likely microvascular ischemia and diastolic dysfunction Echocardiogram reviewed - severe pulmonary hypertension Hold diuresis Pulmonary hypertension V/Q scan per pulmonary negative Atrial fibrillation -resolved -continue metoprolol -Continue telemetry -Anticoagulation deferred given short lasting -D/c with ziopatch MIGUELINA -hold diuresis -IV fluids -Renal ultrasound -Urine electrolytes Subjective Cardiovascular: Reports: no symptoms Respiratory: Reports: no symptoms Gastrointestinal/Abdominal: Reports: no symptoms Subjective Patient stable in PCU, heart rate normal, V/Q scan negative WBC remains elevated , vitals stable no CP/SOB, no distress, no complaints Objective Last 24 Hour Vital Signs Date Time Temp Pulse Resp B/P (MAP) Pulse Ox O2 Delivery O2 Flow Rate FiO2 05/20/19 21:00 Room Air 05/20/19 20:38 79 128/58 05/20/19 20:00 75 05/20/19 20:00 98.4 79 20 128/58 (81) 93 05/20/19 19:21 97 Room Air 21 05/20/19 19:18 77 18 99 Room Air 76 18 96 05/20/19 16:00 97.6 66 18 135/70 (91) 98 05/20/19 15:20 64 05/20/19 15:17 66 17 99 Room Air 21 65 20 97 05/20/19 12:00 98.5 80 20 117/67 (84) 97 05/20/19 12:00 76 05/20/19 10:40 73 17 97 Room Air 21 72 16 94 05/20/19 09:59 78 123/66 05/20/19 09:00 Room Air 05/20/19 08:00 81 05/20/19 08:00 98.8 78 18 123/66 (85) 99 05/20/19 06:57 96 Room Air 21 05/20/19 06:57 73 19 99 Room Air 21 72 19 96 05/20/19 04:00 97.9 63 20 140/79 (99) 99 05/20/19 04:00 76 05/20/19 03:19 65 18 99 Room Air 21 64 20 95 05/20/19 00:00 79 05/20/19 00:00 98.2 75 20 140/71 (94) 97 05/19/19 23:15 69 18 99 Room Air 21 68 18 98 General Appearance: no apparent distress, alert EENT: PERRL/EOMI, normal ENT inspection, TMs normal, pharynx normal Neck: non-tender, normal alignment, supple, normal inspection, no JVD Rhythm: NSR, PVCs Cardiovascular: normal peripheral pulses, normal rate Respiratory/Chest: chest wall non-tender, lungs clear Abdomen: normal bowel sounds, non tender, soft, no organomegaly, no mass, abnormal bowel sounds Extremities: normal range of motion, non-tender, normal inspection, no calf tenderness, no swelling 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, no motor/sensory deficits Intake and Output 05/19/19 05/20/19 18:59 06:59 Intake Total 100 ml 60 ml Balance 100 ml 60 ml Intake Oral 60 ml IV Total 100 ml # Bowel Movements 1 Laboratory Tests Test 05/20/19 03:20 White Blood Count 11.8 K/UL (4.8-10.8) H Red Blood Count 3.47 M/UL (4.20-5.40) L Hemoglobin 11.1 G/DL (12.0-16.0) L Hematocrit 32.4 % (37.0-47.0) L Mean Corpuscular Volume 93 FL (80-99) Mean Corpuscular Hemoglobin 31.9 PG (27.0-31.0) H Mean Corpuscular Hemoglobin Concent 34.2 G/DL (32.0-36.0) Red Cell Distribution Width 11.5 % (11.6-14.8) L Platelet Count 186 K/UL (150-450) Mean Platelet Volume 7.2 FL (6.5-10.1) Neutrophils (%) (Auto) 58.9 % (45.0-75.0) Lymphocytes (%) (Auto) 23.8 % (20.0-45.0) Monocytes (%) (Auto) 12.1 % (1.0-10.0) H Eosinophils (%) (Auto) 4.3 % (0.0-3.0) H Basophils (%) (Auto) 1.0 % (0.0-2.0) Sodium Level 137 MMOL/L (136-145) Potassium Level 3.8 MMOL/L (3.5-5.1) Chloride Level 106 MMOL/L (98-107) Carbon Dioxide Level 21 MMOL/L (21-32) Anion Gap 10 mmol/L (5-15) Blood Urea Nitrogen 27 mg/dL (7-18) H Creatinine 1.5 MG/DL (0.55-1.30) H Estimat Glomerular Filtration Rate mL/min (>60) Glucose Level 128 MG/DL (74-106) H Calcium Level 9.1 MG/DL (8.5-10.1) Total Bilirubin 0.6 MG/DL (0.2-1.0) Aspartate Amino Transf (AST/SGOT) 57 U/L (15-37) H Alanine Aminotransferase (ALT/SGPT) 52 U/L (12-78) Alkaline Phosphatase 237 U/L (46-116) H Total Protein 6.7 G/DL (6.4-8.2) Albumin 2.5 G/DL (3.4-5.0) L Globulin 4.2 g/dL Albumin/Globulin Ratio 0.6 (1.0-2.7) L Buddy Reyes MD May 20, 2019 21:46
[2019-05-21] VITALS: BP 135/70
[2019-05-21] MEDS: Albuterol/Ipratropium 3ml neb HHN SCH ×2 (03:13→07:25)
[2019-05-21 04:00] VITALS: BP 140/81
--- NOTE | 2019-05-21 07:17 | NUR ---
HAND-OFF: Report given to Justin CULP RN. PATIENT RESTING IN BED, NO SIGNS OF DISTRESS NOTED.
--- NOTE | 2019-05-21 07:20 | NUR ---
NURSE NOTES: Received bedside update report from Radhika MEYER. Pt. in bed, awake, a/o x 3-4. No sign of distress. Denies pain at present. IV site at right wrist #[id number]. in placed S.L. Bed in low position, locked. Call light within reach. Will cont. to monitor.
[2019-05-21 08:00] VITALS: BP 120/68
[2019-05-21 08:07] LABS: BASOPHILS % (AUTO) 0.7 % (0.0-2.0); EOSINOPHILS % (AUTO) 3.1 % (0.0-3.0); HEMOGLOBIN 11.3 G/DL (12.0-16.0); LYMPHOCYTES % (AUTO) 10.8 % (20.0-45.0); MEAN CORPUSCULAR VOLUME 94 FL (80-99); MONOCYTES % (AUTO) 7.9 % (1.0-10.0); NEUTROPHILS % (AUTO) 77.6 % (45.0-75.0); PLATELET COUNT 228 K/UL (150-450); RED BLOOD COUNT 3.61 M/UL (4.20-5.40); RED CELL DISTRIBUTION WIDTH 11.6 % (11.6-14.8); WHITE BLOOD COUNT 12.8 K/UL (4.8-10.8)
--- NOTE | 2019-05-21 08:45 | Urology Progress Note ---
Assessment/Plan Status: stable Assessment/Plan: 1. 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 2. Microhematuria. 3. Urinary frequency. 4. Possible neurogenic bladder. 5. Sepsis. 6. Mild MIGUELINA hx, labile renal fxn. abx as ordered serial renal imaging, can be done as outpt monitor renal fxn cysto later Subjective Allergies: Coded Allergies: No Known Allergies (Unverified , 10/09/18) Subjective all noted, feels fair Objective Last 24 Hour Vital Signs Date Time Temp Pulse Resp B/P (MAP) Pulse Ox O2 Delivery O2 Flow Rate FiO2 05/21/19 07:41 68 18 97 Nasal Cannula 2.0 28 05/21/19 07:27 74 18 99 Room Air 21 68 18 97 05/21/19 07:27 97 Room Air 21 05/21/19 04:00 72 05/21/19 04:00 99.5 79 20 140/81 (100) 100 05/21/19 03:13 76 18 99 Room Air 21 72 18 96 05/21/19 00:00 98.9 78 20 135/70 (91) 100 05/21/19 00:00 77 05/20/19 23:24 74 18 98 Room Air 21 75 18 96 05/20/19 21:00 Room Air 05/20/19 20:38 79 128/58 05/20/19 20:00 75 05/20/19 20:00 98.4 79 20 128/58 (81) 93 05/20/19 19:21 97 Room Air 21 05/20/19 19:18 77 18 99 Room Air 21 76 18 96 05/20/19 16:00 97.6 66 18 135/70 (91) 98 05/20/19 15:20 64 05/20/19 15:17 66 17 99 Room Air 21 65 20 97 05/20/19 12:00 98.5 80 20 117/67 (84) 97 05/20/19 12:00 76 05/20/19 10:40 73 17 97 Room Air 21 72 16 94 05/20/19 09:59 78 123/66 05/20/19 09:00 Room Air Intake and Output 05/20/19 05/21/19 18:59 06:59 Intake Total 360 ml 120 ml Balance 360 ml 120 ml Intake Oral 360 ml 120 ml # Voids 3 3 # Bowel Movements 1 1 Microbiology Date/Time Source Procedure Growth Status 05/14/19 14:45 Blood Blood Culture - Final Escherichia Coli Complete 05/14/19 19:03 Nasal Nares MRSA Culture - Final NO METHICILLIN RESISTANT STAPH AUREUS... Complete 05/16/19 02:00 Stool Clostridium difficile Toxin Assay - Final Complete 05/14/19 19:03 Rectum - Final NO CARBAPENEM-RESISTANT ENTEROBACTERI... Complete Current Medications Medications (Trade) Dose Ordered Sig/Alex Route PRN Reason Start Time Stop Time Status Last Admin Dose Admin Acetaminophen (Tylenol) 650 mg Q4H PRN ORAL Mild Pain (Pain Scale 1-3) 05/20/19 06:43 06/16/19 06:42 Albuterol/ Ipratropium (Albuterol/ Ipratropium) 3 ml Q4HRT HHN 05/20/19 07:00 05/21/19 10:59 05/21/19 07:25 Aspirin (ASA) 81 mg DAILY ORAL 05/20/19 09:00 06/17/19 08:59 05/20/19 10:00 Atorvastatin Calcium (Lipitor) 10 mg BEDTIME ORAL 05/20/19 21:00 06/14/19 20:59 05/20/19 20:37 Ceftriaxone Sodium 1 gm/ Dextrose 50 ml @ 100 mls/hr DAILY IVPB 05/20/19 09:00 05/26/19 12:59 05/20/19 09:59 Dextrose (Dextrose 50%) 50 ml Q30M PRN IV Hypoglycemia 05/20/19 05:45 06/13/19 18:14 Diphenhydramine HCl (Benadryl) 25 mg Q6H PRN ORAL Itching/Pruritis 05/20/19 06:45 06/16/19 06:44 Heparin Sodium (Porcine) (Heparin 5000 units/ml) 5,000 units EVERY 12 HOURS SUBQ 05/20/19 09:00 06/16/19 20:59 05/20/19 20:39 Hydromorphone HCl (Dilaudid) 0.5 mg Q6H PRN IVP For Pain 05/20/19 06:45 05/24/19 06:44 Metoprolol Tartrate (Lopressor) 25 mg Q12HR ORAL 05/20/19 09:00 06/14/19 20:59 05/20/19 20:38 Nitroglycerin (Ntg) 0.4 mg Q5M PRN SL Prn Chest Pain 05/20/19 05:20 06/13/19 18:14 Ondansetron HCl (Zofran) 4 mg Q6H PRN IVP Nausea & Vomiting 05/20/19 06:43 06/16/19 06:42 Laboratory Tests 05/21/19 06:42: White Blood Count 12.8H, Red Blood Count 3.61L, Hemoglobin 11.3L, Hematocrit 34.0L, Mean Corpuscular Volume 94, Mean Corpuscular Hemoglobin 31.3H, Mean Corpuscular Hemoglobin Concent 33.3, Red Cell Distribution Width 11.6, Platelet Count 228, Mean Platelet Volume 6.4L, Neutrophils (%) (Auto) 77.6H, Lymphocytes (%) (Auto) 10.8L, Monocytes (%) (Auto) 7.9, Eosinophils (%) (Auto) 3.1H, Basophils (%) (Auto) 0.7, Sodium Level [Pending], Potassium Level [Pending], Chloride Level [Pending], Carbon Dioxide Level [Pending], Blood Urea Nitrogen [ Pending], Creatinine [Pending], Estimat Glomerular Filtration Rate [Pending], Glucose Level [Pending], Calcium Level [Pending], Total Bilirubin [Pending], Aspartate Amino Transf (AST/SGOT) [Pending], Alanine Aminotransferase (ALT/SGPT ) [Pending], Alkaline Phosphatase [Pending], Total Protein [Pending], Albumin [ Pending], Globulin [Pending] Height (Feet): 5 Height (Inches): 0.00 Weight (Pounds): 128 Objective exam stable Ciro Moreno MD May 21, 2019 08:45
[2019-05-21 08:54] LABS: ALANINE AMINOTRANSFERASE 47 U/L (12-78); ALBUMIN 2.6 G/DL (3.4-5.0); ALBUMIN/GLOBULIN RATIO 0.6 (1.0-2.7); ALKALINE PHOSPHATASE 212 U/L (46-116); ANION GAP 12 mmol/L (5-15); ASPARTATE AMINO TRANSFERASE 42 U/L (15-37); BILIRUBIN,TOTAL 0.7 MG/DL (0.2-1.0); BLOOD UREA NITROGEN 21 mg/dL (7-18); CALCIUM 9.3 MG/DL (8.5-10.1); CARBON DIOXIDE 21 MMOL/L (21-32); CHLORIDE 106 MMOL/L (98-107); CREATININE 1.2 MG/DL (0.55-1.30); POTASSIUM 3.9 MMOL/L (3.5-5.1); SODIUM 138 MMOL/L (136-145)
[2019-05-21] MEDS: Metoprolol 25mg tab ORAL SCH (09:28)
[2019-05-21] MEDS: cefTRIAXone 1 GM in D5W 50 ML IVPB SCH (09:28)
[2019-05-21] MEDS: Aspirin Baby 81mg ORAL SCH (09:28)
[2019-05-21] MEDS: Heparin 5000 units/ml inj SUBQ SCH (09:29)
--- NOTE | 2019-05-21 10:01 | Cardiology Progress Note ---
Assessment/Plan Status: stable Assessment/Plan Assessment/Plan Status: stable Assessment/Plan: Assessment Shortness of breath Chest pain NSTEMI Elevated troponin Hypertension Pulmonary hypertension Diastolic dysfunction Plan Chest pain/Elevated troponin Cath at [facility] early this year non obstructive CAD Elevated troponin multifactorial EKG no ischemia Likely microvascular ischemia and diastolic dysfunction Echocardiogram reviewed - severe pulmonary hypertension Hold diuresis Pulmonary hypertension V/Q scan per pulmonary negative Atrial fibrillation -resolved -continue metoprolol -Continue telemetry -Anticoagulation deferred given short lasting -D/c with ziopatch MIGUELINA -hold diuresis -IV fluids -Renal ultrasound -Urine electrolytes Subjective Cardiovascular: Reports: no symptoms Respiratory: Reports: no symptoms Gastrointestinal/Abdominal: Reports: no symptoms Genitourinary: Reports: no symptoms Subjective Patient stable in PCU, heart rate normal, V/Q scan negative WBC remains elevated , vitals stable no CP/SOB, no distress, no complaints Objective Last 24 Hour Vital Signs Date Time Temp Pulse Resp B/P (MAP) Pulse Ox O2 Delivery O2 Flow Rate FiO2 05/21/19 09:28 85 120/68 05/21/19 08:00 98.5 85 18 120/68 (85) 99 05/21/19 07:41 68 18 97 Nasal Cannula 2.0 28 05/21/19 07:27 74 18 99 Room Air 21 68 18 97 05/21/19 07:27 97 Room Air 21 05/21/19 04:00 72 05/21/19 04:00 99.5 79 20 140/81 (100) 100 05/21/19 03:13 76 18 99 Room Air 21 72 18 96 05/21/19 00:00 98.9 78 20 135/70 (91) 100 05/21/19 00:00 77 05/20/19 23:24 74 18 98 Room Air 21 75 18 96 05/20/19 21:00 Room Air 05/20/19 20:38 79 128/58 05/20/19 20:00 75 05/20/19 20:00 98.4 79 20 128/58 (81) 93 05/20/19 19:21 97 Room Air 21 05/20/19 19:18 77 18 99 Room Air 21 76 18 96 05/20/19 16:00 97.6 66 18 135/70 (91) 98 05/20/19 15:20 64 05/20/19 15:17 66 17 99 Room Air 21 65 20 97 05/20/19 12:00 98.5 80 20 117/67 (84) 97 05/20/19 12:00 76 05/20/19 10:40 73 17 97 Room Air 21 72 16 94 General Appearance: no apparent distress, alert EENT: PERRL/EOMI, normal ENT inspection, TMs normal, pharynx normal Neck: non-tender, normal alignment, supple, normal inspection, no JVD Rhythm: NSR Cardiovascular: normal peripheral pulses, normal rate, regular rhythm Respiratory/Chest: chest wall non-tender, lungs clear, normal breath sounds, no respiratory distress, no accessory muscle use Abdomen: normal bowel sounds, non tender, soft, no organomegaly, no mass Extremities: normal range of motion, non-tender, normal inspection, no calf tenderness, no swelling 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, no motor/sensory deficits Intake and Output 05/20/19 05/21/19 19:00 07:00 Intake Total 360 ml 120 ml Balance 360 ml 120 ml Intake Oral 360 ml 120 ml # Voids 3 3 # Bowel Movements 1 1 Laboratory Tests Test 05/21/19 06:42 White Blood Count 12.8 K/UL (4.8-10.8) H Red Blood Count 3.61 M/UL (4.20-5.40) L Hemoglobin 11.3 G/DL (12.0-16.0) L Hematocrit 34.0 % (37.0-47.0) L Mean Corpuscular Volume 94 FL (80-99) Mean Corpuscular Hemoglobin 31.3 PG (27.0-31.0) H Mean Corpuscular Hemoglobin Concent 33.3 G/DL (32.0-36.0) Red Cell Distribution Width 11.6 % (11.6-14.8) Platelet Count 228 K/UL (150-450) Mean Platelet Volume 6.4 FL (6.5-10.1) L Neutrophils (%) (Auto) 77.6 % (45.0-75.0) H Lymphocytes (%) (Auto) 10.8 % (20.0-45.0) L Monocytes (%) (Auto) 7.9 % (1.0-10.0) Eosinophils (%) (Auto) 3.1 % (0.0-3.0) H Basophils (%) (Auto) 0.7 % (0.0-2.0) Sodium Level 138 MMOL/L (136-145) Potassium Level 3.9 MMOL/L (3.5-5.1) Chloride Level 106 MMOL/L (98-107) Carbon Dioxide Level 21 MMOL/L (21-32) Anion Gap 12 mmol/L (5-15) Blood Urea Nitrogen 21 mg/dL (7-18) H Creatinine 1.2 MG/DL (0.55-1.30) Estimat Glomerular Filtration Rate mL/min (>60) Glucose Level 135 MG/DL (74-106) H Calcium Level 9.3 MG/DL (8.5-10.1) Total Bilirubin 0.7 MG/DL (0.2-1.0) Aspartate Amino Transf (AST/SGOT) 42 U/L (15-37) H Alanine Aminotransferase (ALT/SGPT) 47 U/L (12-78) Alkaline Phosphatase 212 U/L (46-116) H Total Protein 7.0 G/DL (6.4-8.2) Albumin 2.6 G/DL (3.4-5.0) L Globulin 4.4 g/dL Albumin/Globulin Ratio 0.6 (1.0-2.7) L Buddy Reyes MD May 21, 2019 10:01
[2019-05-21] MEDS ORDERED: CIPRO500 MG/51 PO (10:28)
[2019-05-21] MEDS ORDERED: ASPIRIN81 MG ORAL (10:28)
[2019-05-21] MEDS ORDERED: NITROSTAT0.4 M1 SL (10:28)
--- NOTE | 2019-05-21 10:34 | Discharge Instructions ---
Discharge Instructions Discharge Instructions Follow up with: Dr. Moreno (Urology). PCP in one week. Services at Discharge: home health services Diet: 2 GM sodium (low sodium) Resume Normal Activity?: Yes Activity: resume normal activities For Congestive Heart Failure Reminder Report to your physician any weight gain of 5 pounds or more in one week. Jim Gabriel M.D. May 21, 2019 10:34
--- NOTE | 2019-05-21 10:36 | Discharge Summary ---
Discharge Summary Hospital Course Date of Admission May 14, 2019 at 15:26 Date of Discharge 05/21/2019 Admitting Diagnosis Shortness Of Breath HPI Dar Rincon is a 88 year old female who was admitted on May 14, 2019 at 15:26 for Shortness Of Breath Consultations Cardiology; Dr. Reyes ID: Dr. Andre Pulmonary: Dr. Hdez Urology: Dr. Moreno Procedures EKG Telemetry Chest/Thorax CTA Echocardiogram V/Q scan CT abdomen pelvis Abdominal US Hospital Course 88 year old female with history of non obstructive CAD, pulmonary HTN on echocardiogram, HTN, NSTEMI presented with sudden onset SOB, no fever or chills or abdominal pain. Admitted to step down for Acute hypoxic respiratory failure. Found to have sepsis with gram negative bacteremia. She was started on diuresis wit furosemide to lower filling and pulmonary pressures, developed Afib with rvr and transferred to ICU and stared on dilt ggt. Converted to sinus rhythm. off dilt ggt and NSR in 60's on metoprolol, transferred to stepdown on 05/18/19. Her hospital course is as follows 1. Acute hypoxic respiratory failure- resolved. Now with E.Coli sepsis and bacteremia (multiple bottles). ID on board. s/p Amikacin. Receiving Zosyn. Sensitivities reviewed. Resistant to Zosyn. Started Lefloxacin renal dosed (500 q24hr) when sensitivities were limited. Then switched to ceftriaxone. Discussed with ID. Switched to oral ciprofloxacin 500 mg daily to take for 7 days. 2. pAF, converted to NSR. Off dilt ggt. Continue rate control with metoprolol. Follow up cards recs. AF less than 12hours, will hold off on anticoagulation for now. Since patient has sepsis and hypovolemic s/p diuresis, s/p bolus 500 ml NS on 05/17. Discussed with student services rep, Dr. Hdez. Needs Ziopatch. To follow up with Dr. Reyes to get that placed in the office. 3. Severe pulmonary hypertension per echo, no history of lung disease. Pulmonary consult appreciated. V/Q to r/o CTEPH: Ventilation is moderately heterogeneous. No significant defects are identified. Perfusion is also moderately heterogeneous. No significant defects are identified. No mismatched defects seen. serologies (ASHLEY , RF, HIV). Needs outpatient PFTs and PSG. RHC in the future. ASHLEY negative, HIV negative. Will follow with DR. Hdez as outpatient. 4. Non obstructive CAD. History of NSTEMI. [facility] heart [facility]. Cardiology on board. Continue ASA, statin, metoprolol and nitroglycerin as needed. 5. MIGUELINA vs MIGUELINA on CKD. Likely from IV contrast and diuresis. Discontinued furosemide on 05/17. Avoid nephrotoxic medications. if no improvement, nephrology consult. Consulted Dr. Waters. Cr improved to 1.2. 6. Thrombocytopenia. Likely from sepsis.Resolved 7. Renal mass vs inflammation. urology consult. f/u recs. Watch for now. No acute intervention. Serial imaging. Dr. Moreno on board. Patient will follow up with him int he office. Daughter is aware. Diet: cardiac Code: full code Disposition: Home soon She is well today, on exam: General Appearance: no apparent distress, alert and oriented, Kyrgyz speaking HEENT: normocephalic, atraumatic Neck: non-tender, normal alignment, supple Respiratory/Chest: chest wall non-tender, lungs clear, normal breath sounds, no respiratory distress, no accessory muscle use Cardiovascular/Chest: normal peripheral pulses, normal rate, regular rhythm, no m/r/g Abdomen: normal bowel sounds, soft, non distended, non tender Extremities: normal range of motion, non-tender, normal inspection, no calf tenderness. 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 50% spent on counseling and care coordination. I discussed the case extensively with daughter Costa on the phone. Time of this note may not reflect time of encounter Discharge Medications New Medications: Ciprofloxacin (Cipro) 500 Mg/[address] [facility].rec 500 MG PO DAILY for 7 Days, #10 TAB Aspirin* (Aspirin*) 81 Mg Tab.chew 81 MG ORAL DAILY for 30 Days, #30 TAB Nitroglycerin (Nitrostat) 0.4 Mg Tab.subl 0.4 MG SL Q5M PRN for 30 Days, #30 TAB Continued Medications: Atorvastatin Calcium* (Lipitor*) 10 Mg Tablet 10 MG ORAL DAILY, #30 TAB 0 Refills Calcium Carbonate (Calcium) 500 Mg Tab.chew 500 MG PO, TAB (This prescription has been renewed) Celecoxib (Celebrex) 50 Mg Capsule 50 MG ORAL TWICE A DAY, CAP (This prescription has been renewed) [lovaza] () 1 GM PO BID Metoprolol Tartrate* (Metoprolol Tartrate*) 25 Mg Tablet 25 MG ORAL EVERY 12 HOURS, TAB (This prescription has been renewed) Montelukast Sodium (Singulair) 4 Mg Gran.pack 4 MG ORAL DAILY, PKT (This prescription has been renewed) Olmesartan Medoxomil (Benicar) 20 Mg Tablet 20 MG ORAL DAILY, TAB (This prescription has been renewed) Discontinued Medications: Cephalexin* (Keflex*) 500 Mg Capsule 500 MG ORAL EVERY 12 HOURS, #14 CAP 0 Refills Olmesartan Medoxomil (Benicar) 20 Mg Tablet 20 MG ORAL DAILY, TAB Discharge Condition Upon Discharge: stable Discharge Disposition Patient was discharged to home with home health Discharge Diagnoses: (1) Sepsis due to gram-negative bacteria (2) E coli bacteremia (3) MIGUELINA (acute kidney injury) (4) Pulmonary hypertension (5) Paroxysmal atrial fibrillation (6) Microhematuria (7) CAD (coronary artery disease) (8) Thrombocytopenia (9) Renal mass Discharge Instructions Discharge Instructions Follow up with: Dr. Moreno (Urology). PCP in one week. Services Upon Discharge: home health services Activity: resume normal activities Jim Gabriel M.D. May 21, 2019 10:36
--- NOTE | 2019-05-21 10:59 | NUR ---
NURSE NOTES: Called dtr. pt. Keo Tae Nielsensilvana and notified regarding d/c home order. 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
[2019-05-21 12:00] VITALS: BP 122/61
--- NOTE | 2019-05-21 12:00 | Consultation ---
History of Present Illness General Date patient seen: May 21, 2019 Chief Complaint: Dyspnea/Respdistress Present Illness HPI 88 year old female, was in usual state of health until 05/14. She was brought it by EMS from adult day care for severe sob and desaturating to 74% on room air, placed on non rebreather and stabilized in the ER. She denies any history of Asthma or COPD (though takes montelukast), had back surgery and chronic back pain and shoulder pain. Had a NSTEMI and cardiac cath at [facility] in October showed non obstructive CAD. Denies any chest pain but had palpitations at the time of sob. In the ER she had CTA pulmonary protocol and was negative for PE, vascular issues and no evidence of consolidation. Her first troponin was negative however there was an elevation in the 2nd trop and trended down. She denies any sick contacts, recent travel, abdominal pain, n/v/d. I spoke to her daughter Julissa on the phone and she may think she may have ran out of her cardiac medications. Allergies: Coded Allergies: No Known Allergies (Unverified , 10/09/18) Medication History Scheduled Aspirin* (Aspirin*), 81 MG ORAL DAILY Atorvastatin Calcium* (Lipitor*), 10 MG ORAL DAILY, (Reported) Celecoxib (Celebrex), 50 MG ORAL TWICE A DAY, (Reported) Ciprofloxacin (Cipro), 500 MG PO DAILY Metoprolol Tartrate* (Metoprolol Tartrate*), 25 MG ORAL EVERY 12 HOURS, ( Reported) Montelukast Sodium (Singulair), 4 MG ORAL DAILY, (Reported) Olmesartan Medoxomil (Benicar), 20 MG ORAL DAILY, (Reported) [lovaza], 1 GM PO BID, (Reported) Scheduled PRN Nitroglycerin (Nitrostat), 0.4 MG SL Q5M PRN Miscellaneous Medications Calcium Carbonate (Calcium), 500 MG PO, (Reported) Discontinued Medications Cephalexin* (Keflex*), 500 MG ORAL EVERY 12 HOURS, (Reported) Discontinued Reason: Medication dose changed Olmesartan Medoxomil (Benicar), 20 MG ORAL DAILY, (Reported) Discontinued Reason: Therapy completed Patient History Healthcare decision maker Resuscitation status Full Code Advanced Directive on File No Review of Systems All Other Systems: negative except mentioned in HPI Physical Exam General Appearance: WD/WN, no apparent distress HEENT: normocephalic, atraumatic Neck: non-tender, normal alignment Respiratory/Chest: lungs clear, normal breath sounds Cardiovascular/Chest: normal rate, regular rhythm Abdomen: normal bowel sounds, non tender, soft Extremities: non-tender Neurologic: alert, oriented x 3 Last 24 Hour Vital Signs Date Time Temp Pulse Resp B/P (MAP) Pulse Ox O2 Delivery O2 Flow Rate FiO2 05/21/19 09:28 85 120/68 05/21/19 08:00 98.5 85 18 120/68 (85) 99 05/21/19 07:41 68 18 97 Nasal Cannula 2.0 28 05/21/19 07:27 74 18 99 Room Air 21 68 18 97 05/21/19 07:27 97 Room Air 21 05/21/19 04:00 72 05/21/19 04:00 99.5 79 20 140/81 (100) 100 05/21/19 03:13 76 18 99 Room Air 21 72 18 96 05/21/19 00:00 98.9 78 20 135/70 (91) 100 05/21/19 00:00 77 05/20/19 23:24 74 18 98 Room Air 21 75 18 96 05/20/19 21:00 Room Air 05/20/19 20:38 79 128/58 05/20/19 20:00 75 05/20/19 20:00 98.4 79 20 128/58 (81) 93 05/20/19 19:21 97 Room Air 21 05/20/19 19:18 77 18 99 Room Air 21 76 18 96 05/20/19 16:00 97.6 66 18 135/70 (91) 98 05/20/19 15:20 64 05/20/19 15:17 66 17 99 Room Air 21 65 20 97 Intake and Output 05/20/19 05/21/19 19:00 07:00 Intake Total 360 ml 120 ml Balance 360 ml 120 ml Intake Oral 360 ml 120 ml # Voids 3 3 # Bowel Movements 1 1 Laboratory Tests Test 05/21/19 06:42 White Blood Count 12.8 K/UL (4.8-10.8) H Red Blood Count 3.61 M/UL (4.20-5.40) L Hemoglobin 11.3 G/DL (12.0-16.0) L Hematocrit 34.0 % (37.0-47.0) L Mean Corpuscular Volume 94 FL (80-99) Mean Corpuscular Hemoglobin 31.3 PG (27.0-31.0) H Mean Corpuscular Hemoglobin Concent 33.3 G/DL (32.0-36.0) Red Cell Distribution Width 11.6 % (11.6-14.8) Platelet Count 228 K/UL (150-450) Mean Platelet Volume 6.4 FL (6.5-10.1) L Neutrophils (%) (Auto) 77.6 % (45.0-75.0) H Lymphocytes (%) (Auto) 10.8 % (20.0-45.0) L Monocytes (%) (Auto) 7.9 % (1.0-10.0) Eosinophils (%) (Auto) 3.1 % (0.0-3.0) H Basophils (%) (Auto) 0.7 % (0.0-2.0) Sodium Level 138 MMOL/L (136-145) Potassium Level 3.9 MMOL/L (3.5-5.1) Chloride Level 106 MMOL/L (98-107) Carbon Dioxide Level 21 MMOL/L (21-32) Anion Gap 12 mmol/L (5-15) Blood Urea Nitrogen 21 mg/dL (7-18) H Creatinine 1.2 MG/DL (0.55-1.30) Estimat Glomerular Filtration Rate mL/min (>60) Glucose Level 135 MG/DL (74-106) H Calcium Level 9.3 MG/DL (8.5-10.1) Total Bilirubin 0.7 MG/DL (0.2-1.0) Aspartate Amino Transf (AST/SGOT) 42 U/L (15-37) H Alanine Aminotransferase (ALT/SGPT) 47 U/L (12-78) Alkaline Phosphatase 212 U/L (46-116) H Total Protein 7.0 G/DL (6.4-8.2) Albumin 2.6 G/DL (3.4-5.0) L Globulin 4.4 g/dL Albumin/Globulin Ratio 0.6 (1.0-2.7) L Height (Feet): 5 Height (Inches): 0.00 Weight (Pounds): 128 Medications Current Medications Medications (Trade) Dose Ordered Sig/Alex Route PRN Reason Start Time Stop Time Status Last Admin Dose Admin Acetaminophen (Tylenol) 650 mg Q4H PRN ORAL Mild Pain (Pain Scale 1-3) 05/20/19 06:43 06/16/19 06:42 Aspirin (ASA) 81 mg DAILY ORAL 05/20/19 09:00 06/17/19 08:59 05/21/19 09:28 Atorvastatin Calcium (Lipitor) 10 mg BEDTIME ORAL 05/20/19 21:00 06/14/19 20:59 05/20/19 20:37 Ciprofloxacin (Cipro 500mg tab) 500 mg EVERY 12 HOURS ORAL 05/21/19 21:00 05/28/19 20:59 Dextrose (Dextrose 50%) 50 ml Q30M PRN IV Hypoglycemia 05/20/19 05:45 06/13/19 18:14 Diphenhydramine HCl (Benadryl) 25 mg Q6H PRN ORAL Itching/Pruritis 05/20/19 06:45 06/16/19 06:44 Heparin Sodium (Porcine) (Heparin 5000 units/ml) 5,000 units EVERY 12 HOURS SUBQ 05/20/19 09:00 06/16/19 20:59 05/21/19 09:29 Hydromorphone HCl (Dilaudid) 0.5 mg Q6H PRN IVP For Pain 05/20/19 06:45 05/24/19 06:44 Metoprolol Tartrate (Lopressor) 25 mg Q12HR ORAL 05/20/19 09:00 06/14/19 20:59 05/21/19 09:28 Nitroglycerin (Ntg) 0.4 mg Q5M PRN SL Prn Chest Pain 05/20/19 05:20 06/13/19 18:14 Ondansetron HCl (Zofran) 4 mg Q6H PRN IVP Nausea & Vomiting 05/20/19 06:43 06/16/19 06:42 Assessment/Plan Problem List: (1) Paroxysmal atrial fibrillation ICD Codes: I48.0 - Paroxysmal atrial fibrillation SNOMED: 083014510 (2) Gram-negative bacteremia ICD Codes: R78.81 - Bacteremia SNOMED: 852592756283 (3) Thrombocytopenia ICD Codes: D69.6 - Thrombocytopenia, unspecified SNOMED: 668931061 (4) MIGUELINA (acute kidney injury) ICD Codes: N17.9 - Acute kidney failure, unspecified SNOMED: 6812428, 28296943 (5) E coli bacteremia ICD Codes: R78.81 - Bacteremia SNOMED: 345000179428 (6) Chest pain, mid sternal ICD Codes: R07.89 - Other chest pain SNOMED: 09114965 (7) Pulmonary hypertension ICD Codes: I27.20 - Pulmonary hypertension, unspecified SNOMED: 56748273 (8) Shortness of breath ICD Codes: R06.02 - Shortness of breath SNOMED: 938598268 (9) CAD (coronary artery disease) ICD Codes: I25.10 - Atherosclerotic heart disease of [place] coronary artery without angina pectoris SNOMED: 99867270 (10) Atrial fibrillation with RVR ICD Codes: I48.91 - Unspecified atrial fibrillation SNOMED: 884846735340889 (11) Sepsis ICD Codes: A41.9 - Sepsis, unspecified organism SNOMED: 10657954 (12) HTN (hypertension) ICD Codes: I10 - Essential (primary) hypertension SNOMED: 92477709 (13) Microhematuria ICD Codes: R31.29 - Other microscopic hematuria SNOMED: 409023759 (14) Sepsis due to gram-negative bacteria ICD Codes: A41.50 - Gram-negative sepsis, unspecified SNOMED: 363425247 (15) Microhematuria ICD Codes: R31.29 - Other microscopic hematuria SNOMED: 777965070 Status: stable Diagnosis [place] I: #MIGUELINA due to contrast nephropathy and in the setting of IV diuressis - continue to hold diuresis at this time - Cr 1.6 on 05/18 improved to 1.2 today - monitor Cr and electrolytes - Avoid nephrotoxins - strict i&Os - daily weights - close outpatient follow up. Fartun Waters M.D. May 21, 2019 12:00
--- NOTE | 2019-05-21 13:14 | Pulmonology Progress Note ---
Assessment/Plan Problems: (1) Pulmonary hypertension (2) Shortness of breath (3) Hypoxia (4) Respiratory distress (5) Dyspnea (6) E coli bacteremia Assessment/Plan PULMONARY HTN: out of proportion to LV function and no h/o known lung disease -VQ without e/o CTEPH -F/U remaining serologies -LFT's normal and HIV negative -Needs OP PFT's and PSG -Consider RHC in the future -DVT Px: Hep SQ -Stable for D/C from a pulmonary standpoint, can F/U with me in 1-2 weeks or earlier PRN Subjective Allergies: Coded Allergies: No Known Allergies (Unverified , 10/09/18) Subjective AFVSS on RA No cough no wheezing no SOB no CP no FC Objective Last 24 Hour Vital Signs Date Time Temp Pulse Resp B/P (MAP) Pulse Ox O2 Delivery O2 Flow Rate FiO2 05/21/19 12:00 98.6 69 20 122/61 (81) 97 05/21/19 09:28 85 120/68 05/21/19 08:00 98.5 85 18 120/68 (85) 99 05/21/19 07:41 68 18 97 Nasal Cannula 2.0 28 05/21/19 07:27 74 18 99 Room Air 21 68 18 97 05/21/19 07:27 97 Room Air 21 05/21/19 04:00 72 05/21/19 04:00 99.5 79 20 140/81 (100) 100 05/21/19 03:13 76 18 99 Room Air 21 72 18 96 05/21/19 00:00 98.9 78 20 135/70 (91) 100 05/21/19 00:00 77 05/20/19 23:24 74 18 98 Room Air 21 75 18 96 05/20/19 21:00 Room Air 05/20/19 20:38 79 128/58 05/20/19 20:00 75 05/20/19 20:00 98.4 79 20 128/58 (81) 93 05/20/19 19:21 97 Room Air 21 05/20/19 19:18 77 18 99 Room Air 21 76 18 96 05/20/19 16:00 97.6 66 18 135/70 (91) 98 05/20/19 15:20 64 05/20/19 15:17 66 17 99 Room Air 21 65 20 97 Intake and Output 05/20/19 05/21/19 19:00 07:00 Intake Total 360 ml 120 ml Balance 360 ml 120 ml Intake Oral 360 ml 120 ml # Voids 3 3 # Bowel Movements 1 1 General Appearance: WD/WN, no acute distress HEENT: normocephalic, atraumatic, anicteric, mucous membranes moist Respiratory/Chest: chest wall non-tender, lungs clear, normal breath sounds, no respiratory distress, no accessory muscle use Laboratory Tests 05/21/19 06:42: White Blood Count 12.8H, Red Blood Count 3.61L, Hemoglobin 11.3L, Hematocrit 34.0L, Mean Corpuscular Volume 94, Mean Corpuscular Hemoglobin 31.3H, Mean Corpuscular Hemoglobin Concent 33.3, Red Cell Distribution Width 11.6, Platelet Count 228, Mean Platelet Volume 6.4L, Neutrophils (%) (Auto) 77.6H, Lymphocytes (%) (Auto) 10.8L, Monocytes (%) (Auto) 7.9, Eosinophils (%) (Auto) 3.1H, Basophils (%) (Auto) 0.7, Sodium Level 138, Potassium Level 3.9, Chloride Level 106, Carbon Dioxide Level 21, Anion Gap 12, Blood Urea Nitrogen 21H, Creatinine 1.2, Estimat Glomerular Filtration Rate , Glucose Level 135H, Calcium Level 9.3 , Total Bilirubin 0.7, Aspartate Amino Transf (AST/SGOT) 42H, Alanine Aminotransferase (ALT/SGPT) 47, Alkaline Phosphatase 212H, Total Protein 7.0, Albumin 2.6L, Globulin 4.4, Albumin/Globulin Ratio 0.6L Current Medications Medications (Trade) Dose Ordered Sig/Alex Route PRN Reason Start Time Stop Time Status Last Admin Dose Admin Acetaminophen (Tylenol) 650 mg Q4H PRN ORAL Mild Pain (Pain Scale 1-3) 05/20/19 06:43 06/16/19 06:42 Aspirin (ASA) 81 mg DAILY ORAL 05/20/19 09:00 06/17/19 08:59 05/21/19 09:28 Atorvastatin Calcium (Lipitor) 10 mg BEDTIME ORAL 05/20/19 21:00 06/14/19 20:59 05/20/19 20:37 Ciprofloxacin (Cipro 500mg tab) 500 mg EVERY 12 HOURS ORAL 05/21/19 21:00 05/28/19 20:59 Dextrose (Dextrose 50%) 50 ml Q30M PRN IV Hypoglycemia 05/20/19 05:45 06/13/19 18:14 Diphenhydramine HCl (Benadryl) 25 mg Q6H PRN ORAL Itching/Pruritis 05/20/19 06:45 06/16/19 06:44 Heparin Sodium (Porcine) (Heparin 5000 units/ml) 5,000 units EVERY 12 HOURS SUBQ 05/20/19 09:00 06/16/19 20:59 05/21/19 09:29 Hydromorphone HCl (Dilaudid) 0.5 mg Q6H PRN IVP For Pain 05/20/19 06:45 05/24/19 06:44 Metoprolol Tartrate (Lopressor) 25 mg Q12HR ORAL 05/20/19 09:00 06/14/19 20:59 05/21/19 09:28 Nitroglycerin (Ntg) 0.4 mg Q5M PRN SL Prn Chest Pain 05/20/19 05:20 06/13/19 18:14 Ondansetron HCl (Zofran) 4 mg Q6H PRN IVP Nausea & Vomiting 05/20/19 06:43 06/16/19 06:42 Darrell Hdez MD May 21, 2019 13:14
[2019-05-21] MEDS ORDERED: Tubing IV Secondary IV ONE (13:19)
[2019-05-21] MEDS ORDERED: NS 500ML ONE (13:19)
--- NOTE | 2019-05-21 13:28 | NUR ---
Discharge: Patient is being discharged to home with home health from medical care. Awake, alert and oriented x3-4. After care instructions were given. Patient verbalized understanding of after care instructions upon discharge. 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 Patient wheeled out with all personal belongings. Picked up by daughter. Pt. remain stable.
--- NOTE | 2019-05-21 15:58 | NUR ---
*-* DISCHARGE PLANNING *-* PATIENT HAS BEEN REFERRED TO: [facility] P: [phone] F: [phone]
[2019-05-21] MEDS ORDERED: Ciprofloxacin 500mg tab ORAL SCH (21:00)
== END 2019-05-21 13:20 | disposition home health service (06) | DRG 189 ==
LOC: EDBD 14:13 → EDBEDREQSVC 14:46 → EMR 15:00 → 2W 15:26 → EDBEDREQ 17:44 → 2W 21:06 → ICU 05-17 02:40 → 2W 05-18 15:40 → 2E 05-20 06:02
DX: J96.01 Acute respiratory failure with hypoxia (principal); A41.51 Sepsis due to Escherichia coli [E. coli]; N17.9 Acute kidney failure, unspecified; I13.10 Hypertensive heart and chronic kidney disease without heart failure, with stage 1 through stage 4 chronic kidney disease, or unspecified chronic kidney disease; N18.3 Chronic kidney disease, stage 3 (moderate); I27.20 Pulmonary hypertension, unspecified; I25.10 Atherosclerotic heart disease of native coronary artery without angina pectoris; I25.2 Old myocardial infarction; I48.0 Paroxysmal atrial fibrillation; D69.6 Thrombocytopenia, unspecified; N28.89 Other specified disorders of kidney and ureter; E78.5 Hyperlipidemia, unspecified; R07.89 Other chest pain; R31.29 Other microscopic hematuria; T50.8X5A Adverse effect of diagnostic agents, initial encounter; R35.0 Frequency of micturition
CPT/HCPCS: 36415; 71045; 71275; 74176; 76700; 78579; 78580; 80048; 80053; 81003; 82248; 82550; 82553; 82570; 83605; 83690; 83735; 83880; 84100; 84133; 84300; 84484; 85007; 85025; 85610; 85651; 85730; 86021; 86039; 86140; 86200; 86431; 86703; 87040; 87081; 87181; 87324; 93005; 93306; 94640; 94664; 96360; 99291; A9503; J7620; J8499